=== PATIENT | male | born 1965 | race Caucasian/White ===

== ENCOUNTER 2020-07-18 23:43 | Inpatient (IN) | payer BC, SELFPAY ==
[2020-07-18 23:49] VITALS: BP 120/89; PULSE 140; RESP 26; TEMP 36.5; O2SAT 97; BMI 27.3
--- NOTE | 2020-07-18 23:59 | ECG_ITS ---
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
--- NOTE | 2020-07-18 23:59 | XRR_ITS ---
PROCEDURE INFORMATION: Exam: XR Chest, 1 View Exam date and time: 07/19/2020 12:01 AM Age: 54 years old Clinical indication: Dyspnea; Additional info: SOB TECHNIQUE: Imaging protocol: XR of the chest Views: 1 view. COMPARISON: No relevant prior studies available. FINDINGS: Lungs: Bilateral interstitial lung disease with associated interseptal and interlobular thickening without consolidated alveolar airspace disease. Suspect secondary to pulmonary fibrosis. No visible central pulmonary hyperemia to suggest an increased risk for in interstitial edema. COPD/chronic bronchitis. Evidence of antecedent granulomatous disease. Pleural space: Unremarkable. No pleural effusion. No pneumothorax. Heart/Mediastinum: Cardiac structures and configuration without evidence for cardiomegaly. Diaphragm: Elevation of the left hemidiaphragm. Bones/joints: Unremarkable. XR/XR chest 1V portable [id number] IMPRESSION: 1. Bilateral interstitial lung disease with associated interseptal and interlobular thickening without consolidated alveolar airspace disease. Suspect secondary to pulmonary fibrosis. 2. COPD/chronic bronchitis.
[2020-07-19] VITALS (53 sets, daily range): BP systolic 93–132; BP diastolic 71–95; PULSE 79–132; RESP 14–34; TEMP 35.9–36.6; O2SAT 84–97
--- NOTE | 2020-07-19 00:03 | ED_ITS ---
HPI - SOB/Dyspnea General: Chief Complaint: Shortness of Breath/Dyspnea Stated Complaint: trouble catching breath Time Seen by Provider: 07/18/20 23:53 Source: patient Mode of arrival: ambulatory Limitations: no limitations History of Present Illness: HPI Narrative: 54-year-old male states he has been having palpitations along with shortness of breath throughout the day. He denies any worsening or improving factors. He is in A. fib with RVR heart rate into the 160s and 170s here. He denies any history of A. fib. He denies any cough or fever. Denies any worsening or improving factors. Associated symptoms: Reports palpitations; Deny abdominal pain, fever(s), nausea or vomiting Review of Systems Const: Denies: fever(s), chills, body aches or change in appetite Eyes: Denies: blurry vision or eye discomfort ENMT: Denies: throat pain or dental pain Card: Reports: palpitations Resp: Reports: dyspnea GI: Denies: abdominal pain, nausea, vomiting or diarrhea : Denies: dysuria Musc: Denies: neck pain or back pain Skin/Breast: Denies: rash Neuro: Denies: headache(s) Psych: Denies: depression Oswaldo/Lymph: Denies: easy bruising All/Imm: Denies: urticaria Physical Exam Const: COMMON NORMALS: no acute distress, patient oriented x3 and healthy appearing HENMT: COMMON NORMALS: normocephalic and atraumatic HEAD & SCALP: normocephalic and atraumatic Eye: COMMON NORMALS: Equal, round and reactive pupils present and EOMs intact bilaterally PUPIL: Yes Equal, round and reactive pupils present Neck/C-Spine: COMMON NORMALS: full ROM and supple Chest: COMMONS NORMALS: normal inspection of the chest and normal palpation of entire chest wall Resp: COMMON NORMALS: normal respiratory effort, No retractions, No use of accessory muscles and clear to auscultation bilaterally AUSCULTATION: clear to auscultation bilaterally Cardio: COMMON NORMALS: No murmurs present (Cardio) RATE: tachycardic RHYTHM: abnormal rhythm irregularly irregular GI: COMMON NORMALS: Normal to inspection, nondistended, normoactive bowel sounds present, Soft to palpation, non-tender and no masses PALPATION: Yes Soft to palpation Extremity: COMMON NORMALS: normal to inspection and full ROM Neuro: COMMON NORMALS: patient oriented x3, moves all extremities and no focal motor deficits Psych: COMMON NORMALS: mental status grossly normal, Normal thought process present and cooperative THOUGHT PROCESS: Normal thought process present Skin: COMMON NORMALS: no rashes or lesions noted and no wounds GENERAL SKIN EXAM: no rashes or lesions noted Course Vital Signs: Vital signs: Vital Signs Temperature 97.7 F 07/18/20 23:49 Pulse Rate 110 H 07/19/20 02:46 Respiratory Rate 18 07/19/20 02:46 Blood Pressure 115/89 07/19/20 02:46 Pulse Oximetry 92 07/19/20 02:46 MDM - SOB/Dyspnea MDM Narrative: Medical decision making narrative: Joe presents here with A. fib with RVR that is new onset. Patient also has appearance of pneumonia on his x-ray as well. Patient given Cardizem and started on a Cardizem drip here heart rate has improved. Spoke to hospitalist and will admit to the cardiac stepdown. Lab Data: Labs: Lab Results 07/19/20 07/19/20 07/19/20 Range/Units 00:01 00:01 00:01 WBC 9.1 (4.0-10.0) 10^3/ uL RBC 4.79 (4.1-5.3) 10^6/u L Hgb 15.8 (11.7-16.6) g/dL Hct 47.6 (42.0-52.0) % MCV 99.4 H (80-94) fL MCH 33.0 (28.0-34.0) pg MCHC 33.2 (30.0-36.0) g/dL RDW 13.8 (12.1-15.1) % Plt Count 172 (130-400) 10^3/c mm MPV 10.3 (7.4-10.4) fL Neut % (Auto) 60.7 % Lymph % (Auto) 28.4 % Jenkins % (Auto) 9.1 % Eos % (Auto) 0.8 % Baso % (Auto) 0.7 % Neut # (Auto) 5.55 (1.8-7.7) 10^3/u L Lymph # (Auto) 2.6 (0.8-4.8) 10^3/u L Jenkins # (Auto) 0.8 (0.2-0.9) 10^3/u L Eos # (Auto) 0.1 (0.0-0.8) 10^3/u L Baso # (Auto) 0.1 (0.0-0.1) 10^3/u L Nucleated RBC % (a uto) 0 % Nucleated RBCs # 0.0 /100WBC D-Dimer 1.18 H (0-0.59) ug/mIFE U Sodium 138 (136-145) mmol/L Potassium 4.3 (3.5-5.1) mmol/L Chloride 104 (98-107) mmol/L Carbon Dioxide 23 (22-29) mmol/L Anion Gap 15.3 (5-19) BUN 19 (6-20) mg/dL Creatinine 1.1 (0.7-1.2) mg/dL GFR Calculation 70.0 L (90-130) mL/min Glucose 110 (65-115) mg/dL Calculated Osmolal ity 289 (285-295) mOsm/k g Calcium 9.3 (8.5-10.5) mg/dL Total Bilirubin 1.1 (0.15-1.2) mg/dL AST 26 (0-40) U/L ALT 25 (0-41) U/L Alkaline Phosphata se 84 (40-130) IU/L Troponin T Baselin e (0-15) ng/L Troponin T 120 Min [place] (0-15) ng/L Delta Troponin T (0-10) ABS# NT-Pro-B Natriuret Pep 1387 H (0-125) pg/mL Total Protein 6.5 L (6.6-8.7) g/dL Albumin 4.1 (3.5-5.2) g/dL Globulin 2.4 (1.3-4.6) g/dL SARS-CoV-2 Ag (Rap id) (Negative) 07/19/20 07/19/20 07/19/20 Range/Units 00:01 02:18 02:20 WBC (4.0-10.0) 10^3/ uL RBC (4.1-5.3) 10^6/u L Hgb (11.7-16.6) g/dL Hct (42.0-52.0) % MCV (80-94) fL MCH (28.0-34.0) pg MCHC (30.0-36.0) g/dL RDW (12.1-15.1) % Plt Count (130-400) 10^3/c mm MPV (7.4-10.4) fL Neut % (Auto) % Lymph % (Auto) % Jenkins % (Auto) % Eos % (Auto) % Baso % (Auto) % Neut # (Auto) (1.8-7.7) 10^3/u L Lymph # (Auto) (0.8-4.8) 10^3/u L Jenkins # (Auto) (0.2-0.9) 10^3/u L Eos # (Auto) (0.0-0.8) 10^3/u L Baso # (Auto) (0.0-0.1) 10^3/u L Nucleated RBC % (a uto) % Nucleated RBCs # /100WBC D-Dimer (0-0.59) ug/mIFE U Sodium (136-145) mmol/L Potassium (3.5-5.1) mmol/L Chloride (98-107) mmol/L Carbon Dioxide (22-29) mmol/L Anion Gap (5-19) BUN (6-20) mg/dL Creatinine (0.7-1.2) mg/dL GFR Calculation (90-130) mL/min Glucose (65-115) mg/dL Calculated Osmolal ity (285-295) mOsm/k g Calcium (8.5-10.5) mg/dL Total Bilirubin (0.15-1.2) mg/dL AST (0-40) U/L ALT (0-41) U/L Alkaline Phosphata se (40-130) IU/L Troponin T Baselin e 12 (0-15) ng/L Troponin T 120 Min [place] 11.01 (0-15) ng/L Delta Troponin T -0.99 L (0-10) ABS# NT-Pro-B Natriuret Pep (0-125) pg/mL Total Protein (6.6-8.7) g/dL Albumin (3.5-5.2) g/dL Globulin (1.3-4.6) g/dL SARS-CoV-2 Ag (Rap id) Negative (Negative) Imaging Data^: CXR: Attestation: I personally reviewed and interpreted this imaging study as follows: Radiologist's impression: [facility] [address] [place] [id number] XRay Report Signed Patient: Keith Shi Unit #: [id number] : 1965 Age/Sex: 54 / M ADM Date: 07/18/20 Loc: ER Room/Bed: Attending Dr: Ordering Provider/Ordering MD: Jyotsna Adkins MD Date of Service: 07/18/20 Procedure(s): XR chest 1V portable [id number] Accession Number(s): [id number] Report Number: [id number] PROCEDURE INFORMATION: Exam: XR Chest, 1 View Exam date and time: 07/19/2020 12:01 AM Age: 54 years old Clinical indication: Dyspnea; Additional info: SOB TECHNIQUE: Imaging protocol: XR of the chest Views: 1 view. COMPARISON: No relevant prior studies available. FINDINGS: Lungs: Bilateral interstitial lung disease with associated interseptal and interlobular thickening without consolidated alveolar airspace disease. Suspect secondary to pulmonary fibrosis. No visible central pulmonary hyperemia to suggest an increased risk for in interstitial edema. COPD/chronic bronchitis. Evidence of antecedent granulomatous disease. Pleural space: Unremarkable. No pleural effusion. No pneumothorax. Heart/Mediastinum: Cardiac structures and configuration without evidence for cardiomegaly. Diaphragm: Elevation of the left hemidiaphragm. Bones/joints: Unremarkable. XR/XR chest 1V portable [id number] IMPRESSION: 1. Bilateral interstitial lung disease with associated interseptal and interlobular thickening without consolidated alveolar airspace disease. Suspect secondary to pulmonary fibrosis. 2. COPD/chronic bronchitis. CT Chest: Attestation: I personally reviewed and interpreted this imaging study as follows: Radiologist's impression: [facility] [address] [place] [id number] Scan Report Signed Patient: Keith Shi Unit #: [id number] : 1965 Age/Sex: 54 / M ADM Date: 07/18/20 Loc: ER Room/Bed: Attending Dr: Ordering Provider/Ordering MD: Jyotsna Adkins MD Date of Service: 07/19/20 Procedure(s): CT angio chest PE protcl [id number] Accession Number(s): [id number] Report Number: [id number] PROCEDURE INFORMATION: Exam: CT Angiography Chest With Contrast Exam date and time: 07/19/2020 1:41 AM Age: 54 years old Clinical indication: Dyspnea; Additional info: SOB TECHNIQUE: Imaging protocol: Computed tomographic angiography of the chest with intravenous contrast. 3D rendering (Not supervised by radiologist): MIP and/or 3D reconstructed images were created by the technologist. Radiation optimization: All CT scans at this facility use at least one of these dose optimization techniques: automated exposure control; mA and/or kV adjustment per patient size (includes targeted exams where dose is matched to clinical indication); or iterative reconstruction. Contrast material: OMNI 350; Contrast volume: 95 ml; Contrast route: INTRAVENOUS (IV); COMPARISON: CR XR chest 1V portable [id number] 07/18/2020 11:47 PM RADIATION DOSE METRICS: Total DLP (mGy-cm): 620.33 FINDINGS: Pulmonary arteries: Normal. No pulmonary emboli. Aorta: Unremarkable. No aortic aneurysm. No aortic dissection. Lungs: There is mild prominence of the pulmonary vasculature and some increased linear opacities present , findings that could represent pulmonary edema. Pleural space: There is a right pleural effusion. There are hazy opacities superimposed over the right pleural effusion likely representing atelectasis. Heart: Unremarkable. No cardiomegaly. No pericardial effusion. Lymph nodes: There are multiple mildly prominent mediastinal and hilar lymph nodes seen. Diaphragm: There is elevation of the left hemidiaphragm. There strandy and patchy opacities and consolidation seen superimposed over the left hemidiaphragm likely representing atelectasis. A left basilar pneumonia cannot be entirely excluded however. Bones/joints: Unremarkable. No acute fracture. Soft tissues: Unremarkable. CT/CT angio chest PE protcl [id number] IMPRESSION: 1. There is no evidence for pulmonary emboli. 2. Multiple mildly prominent mediastinal and hilar lymph nodes are present. 3. There is elevation of the left hemidiaphragm. Strandy and patchy opacities and some consolidation superimposes over the elevated left hemidiaphragm likely representing atelectasis although superimposed pneumonia cannot be excluded. 4. There is a small right pleural effusion. Hazy opacities superimposed over the pleural effusion likely representing atelectasis. 5. There is mild prominence of the pulmonary vasculature and some increased linear opacities present, findings that could represent mild pulmonary edema. EKG Data^: EKG 1: Attestation: I personally reviewed and interpreted this EKG as follows: EKG Interpretation Date: 07/19/20 EKG interpretation time: 23:54 Interpretation: afib with rvr hr [address] or t wave abnormalities qrs 89 qtc 358 EKG 2: Attestation: I personally reviewed and interpreted this EKG as follows: EKG Interpretation Date: 07/19/20 EKG interpretation time: 02:18 Interpretation: afib hr [address] or t wave abnormalities qrs 97 qtc 409 Critical Care Time Critical Care Time: Critical Care Time: Yes Total Critical Care Time: 36 Attestation: This case had a high probability of a clinically significant, sudden, or life threatening deterioration of this patient's condition which required my full and direct attention, intervention and personal management. 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
[2020-07-19] MEDS: sodium chloride 0.9% 1,000 ML 999 ML IV ×2 (00:19→04:51)
[2020-07-19 00:38] LABS: Troponin(5th) Baseline 12 ng/L (0-15)
[2020-07-19 00:47] LABS: Alanine Aminotransferase 25 U/L (0-41); Albumin Level 4.1 g/dL (3.5-5.2); Alkaline Phosphatase 84 IU/L (40-130); Aspartate Amino Transferase 26 U/L (0-40); Blood Urea Nitrogen 19 mg/dL (6-20); Calcium 9.3 mg/dL (8.5-10.5); Carbon Dioxide 23 mmol/L (22-29); Chloride 104 mmol/L (98-107); Globulin 2.4 g/dL (1.3-4.6); Glucose 110 mg/dL (65-115); NT Pro B Type Natriuretic Pept 1387 pg/mL (0-125); Osmolality Calculated 289 mOsm/kg (285-295); Sodium 138 mmol/L (136-145); Total Bilirubin 1.1 mg/dL (0.15-1.2); Total Protein 6.5 g/dL (6.6-8.7)
[2020-07-19 01:22] LABS: Anion Gap 15.3 (5-19); Potassium 4.3 mmol/L (3.5-5.1)
[2020-07-19 01:23] LABS: Basophils # 0.1 10^3/uL (0.0-0.1); Basophils % 0.7 %; Eosinophils # 0.1 10^3/uL (0.0-0.8); Eosinophils % 0.8 %; Hematocrit 47.6 % (42.0-52.0); Hemoglobin 15.8 g/dL (11.7-16.6); Lymphocytes # 2.6 10^3/uL (0.8-4.8); Lymphocytes % 28.4 %; Mean Corpuscular HGB Conc 33.2 g/dL (30.0-36.0); Mean Corpuscular Volume 99.4 fL (80-94); Mean Platelet Volume 10.3 fL (7.4-10.4); Monocytes # 0.8 10^3/uL (0.2-0.9); Monocytes % 9.1 %; Neutrophils # 5.55 10^3/uL (1.8-7.7); Neutrophils % 60.7 %; Nucleated Red Blood Cells % 0 %; Platelet Count 172 10^3/cmm (130-400); Red Blood Count 4.79 10^6/uL (4.1-5.3); Red Cell Distribution Width 13.8 % (12.1-15.1); White Blood Count 9.1 10^3/uL (4.0-10.0)
[2020-07-19 01:29] LABS: D Dimer 1.18 ug/mIFEU (0-0.59)
--- NOTE | 2020-07-19 01:31 | CTR_ITS ---
PROCEDURE INFORMATION: Exam: CT Angiography Chest With Contrast Exam date and time: 07/19/2020 1:41 AM Age: 54 years old Clinical indication: Dyspnea; Additional info: SOB TECHNIQUE: Imaging protocol: Computed tomographic angiography of the chest with intravenous contrast. 3D rendering (Not supervised by radiologist): MIP and/or 3D reconstructed images were created by the technologist. Radiation optimization: All CT scans at this facility use at least one of these dose optimization techniques: automated exposure control; mA and/or kV adjustment per patient size (includes targeted exams where dose is matched to clinical indication); or iterative reconstruction. Contrast material: OMNI 350; Contrast volume: 95 ml; Contrast route: INTRAVENOUS (IV); COMPARISON: CR XR chest 1V portable [id number] 07/18/2020 11:47 PM RADIATION DOSE METRICS: Total DLP (mGy-cm): 620.33 FINDINGS: Pulmonary arteries: Normal. No pulmonary emboli. Aorta: Unremarkable. No aortic aneurysm. No aortic dissection. Lungs: There is mild prominence of the pulmonary vasculature and some increased linear opacities present , findings that could represent pulmonary edema. Pleural space: There is a right pleural effusion. There are hazy opacities superimposed over the right pleural effusion likely representing atelectasis. Heart: Unremarkable. No cardiomegaly. No pericardial effusion. Lymph nodes: There are multiple mildly prominent mediastinal and hilar lymph nodes seen. Diaphragm: There is elevation of the left hemidiaphragm. There strandy and patchy opacities and consolidation seen superimposed over the left hemidiaphragm likely representing atelectasis. A left basilar pneumonia cannot be entirely excluded however. Bones/joints: Unremarkable. No acute fracture. Soft tissues: Unremarkable. CT/CT angio chest PE protcl [id number] IMPRESSION: 1. There is no evidence for pulmonary emboli. 2. Multiple mildly prominent mediastinal and hilar lymph nodes are present. 3. There is elevation of the left hemidiaphragm. Strandy and patchy opacities and some consolidation superimposes over the elevated left hemidiaphragm likely representing atelectasis although superimposed pneumonia cannot be excluded. 4. There is a small right pleural effusion. Hazy opacities superimposed over the pleural effusion likely representing atelectasis. 5. There is mild prominence of the pulmonary vasculature and some increased linear opacities present, findings that could represent mild pulmonary edema. Radiation Dose CTDIVOL = (mGy): DLP = 620.33 (mGy-cm)
[2020-07-19] MEDS: iohexol 350 mg/mL 100 mL Btl IV (01:57)
--- NOTE | 2020-07-19 01:59 | ECG_ITS ---
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
[2020-07-19] MEDS: cefTRIAXone 1,000 MG in sodium chloride 0.9% (plus) 50 ML 100 MG IV (02:44)
[2020-07-19 02:48] LABS: Troponin 5 2HR 11.01 ng/L (0-15)
--- NOTE | 2020-07-19 02:51 | PC.NURSE ---
Patient oxygen saturation dropped to 88%. Placed patient on 2L of oxygen via nasal cannula and oxygen saturation came up to 92%.
[2020-07-19 02:53] LABS: Troponin 5 2HR Delta -0.99 ABS# (0-10)
[2020-07-19 02:56] LABS: SARS Covid-2 Antigen Negative (Negative)
[2020-07-19] MEDS: azithromycin 500 MG in sodium chloride 0.9% 250 ML 250 MG IV (03:53)
--- NOTE | 2020-07-19 04:39 | PC.NURSE ---
report called to Sheela GUZMAN on CSU unit at [phone]
--- NOTE | 2020-07-19 05:02 | PC.NURSE ---
Patient received from ED via stretcher. Patient able to ambulate to bed with minimal assistance. Cardizem drip running at 10ml/hr upon arrival to floor. VS as documented. Dr Alvarado in to see patient. Received verbal order to give Lasix 20mg IVP one time now. Also, to increase cardizem drip to 15ml/hr and give a 15ml bolus from drip that is hanging. Bolus given and rate increased to 15ml/hr. Patient c/o palpitations and increased work of breathing. Currently sitting on side of bed for ease of breathing. Dr Alvarado to place further orders.
[2020-07-19] MEDS: FUROsemide 10 mg/mL SDV 2mL 20 MG IVP (05:21)
--- NOTE | 2020-07-19 05:59 | USCV_ITS ---
Keith Shi Age: 54 Gender: M : 1965 Exam Date: 07/19/2020 08:38 Ordering Phys: Emmy Alvarado MD Technologist: Kandis Merino Exam Location: [facility] Indication: New onset atrial fibrillation with RVR, CHF BP: 109 / 88 HR: 112 Rhythm: Sinus Technical Quality: Fair MEASUREMENTS (Male / Female) Normal Values 2D ECHO LV Diastolic Diameter PLAX 5.4 cm 4.2 - 5.9 / 3.9 - 5.3 cm LV Systolic Diameter PLAX 3.5 cm LV Chamber Size 4.9 cm IVS Diastolic Thickness 1.1 cm 0.6 - 1.0 / 0.6 - 0.9 cm IVS Systolic Thickness 1.6 cm LVPW Diastolic Thickness 0.9 cm 0.6 - 1.0 / 0.6 - 0.9 cm LVPW Systolic Thickness 1.2 cm RV Chamber Size 2.9 cm LVOT Diameter 1.9 cm LV Ejection Fraction 2D Teich 65.1 % LV Ejection Fraction MOD 2C 61.7 % LV Ejection Fraction 2C AL 63.4 % LA Diameter 4.2 cm LA Width 3.6 cm LA Height 6.2 cm RA Width 3.3 cm RA Height 5.0 cm Aorta at Sinotubular Diameter 2.6 cm M-MODE LV Diastolic Diameter MM 6.1 cm 4.2 - 5.9 / 3.9 - 5.3 cm LV Systolic Diameter MM 4.3 cm LV Ejection Fraction MM Teich 55.0 % IVS Diastolic Thickness MM 0.8 cm 0.6 - 1.0 / 0.6 - 0.9 cm IVS Systolic Thickness MM 1.5 cm LVPW Diastolic Thickness MM 1.0 cm 0.6 - 1.0 / 0.6 - 0.9 cm LVPW Systolic Thickness MM 1.2 cm RV Diastolic Diameter MM 1.1 cm Aortic Annulus Diameter 3.3 cm LA Ao Ratio MM 1.3 MV E Point Septal Separation 1.3 cm DOPPLER AV Peak Velocity 124.0 cm/s LVOT Peak Velocity 81.0 cm/s AV Area Cont Eq vti 1.4 cm squared AV Area Cont Eq pk 1.9 cm squared MV Area PHT 4.6 cm squared MV E' Velocity 142.0 cm/s TR Peak Velocity 286.4 cm/s TR Peak Gradient 32.8 mmHg TR Mean Velocity 240.0 cm/s TR Mean Gradient 24.0 mmHg TR Velocity Time Integral 80.0 cm TV Peak E Velocity 46.0 cm/s Right Atrial Pressure 15.0 mmHg Pulmonary Artery Systolic Pressu 47.8 mmHg PV Peak Velocity 36.0 cm/s RV Acceleration Time 0.0 s RV Ejection Time 0.2 s RV AcT/ET 0.2 FINDINGS Left Ventricle Normal left ventricular cavity size. Normal left ventricular systolic function. No regional wall motion abnormalities. Left ventricular ejection fraction is estimated at 55 %. In the presence of atrial fibrillation diastolic function cannot be assessed accurately. Right Ventricle The right ventricle is normal in size and function. Moderate pulmonary hypertension, RVSP 67 mmHg. Right Atrium The right atrium is normal in size. Left Atrium The left atrium is normal in size. Mitral Valve Mildly thickened mitral valve. No mitral valve stenosis. Severe mitral valve regurgitation. Aortic Valve Structurally normal aortic valve without significant sclerosis or stenosis. There is no aortic regurgitation. Tricuspid Valve Severe tricuspid valve regurgitation. Pulmonic Valve Moderate pulmonary valve regurgitation. Pericardium Normal pericardium without effusion. Aorta Normal ascending aorta dimension. CONCLUSIONS 1-Normal left ventricular cavity size. Normal left ventricular systolic function. No regional wall motion abnormalities. Left ventricular ejection fraction is estimated at 55 %. In the presence of atrial fibrillation diastolic function cannot be assessed accurately. 2-The right ventricle is normal in size and function. Moderate pulmonary hypertension, RVSP 67 mmHg. 3-Mildly thickened mitral valve. No mitral valve stenosis. Severe mitral valve regurgitation. 4-Structurally normal aortic valve without significant sclerosis or stenosis. There is no aortic regurgitation. 5-Severe tricuspid valve regurgitation. 6-Moderate pulmonary valve regurgitation. 7-There is no pericardial effusion. 8-Right atrial pressure is around 20 mm of mercury. 9-There are no prior echocardiogram studies to compare. Laura Burch MD (Electronically Signed) Final Date: 19 July 2020 19:09 S
--- NOTE | 2020-07-19 06:03 | PM.HP ---
Providers/Chief Complaint Admitting Physician: Emmy Alvarado MD Chief Complaint: trouble catching breath History of Present Illness Keith Shi is a 54 year old male with no known PMH, does not usually follow with doctors, chronic active smoker who presented to the ER today c/o palpitations and shortness of breath. States that this has been ongoing over the past week, does not remember any specific triggers, denies any chest pain. States onset was sudden, however because of worsening dyspnea and palpitations presented to ER today. Here npted to be in A fib with RVR with HR up to 170bpm ,improved to 110/min with 20mg IVP cardizem and now started on cardizem gtt. Also with new 02 requierement of 2-3lpm to maintain saturation , room air sats of 88%ROS + for orthopnea. H/o chronic cough + 15 years, states this is not worsened over baseline. CTA chest in the ER negative for PE, however shows pulmonary edema and atelactasis. CXR without gross infiltrates, shows COPD. Troponin without significant delta. Review of Systems General: Reports: 10 or more systems reviewed and unremarkable except in HPI and below Const: Denies: fever(s), chills or body aches Eyes: Denies: change in vision, blurry vision or photophobia ENMT: Denies: throat pain, enlarged tonsils, odynophagia or nasal congestion Card: Reports: palpitations and irregular heart rhythm; Denies: chest pain, edema, swelling of feet/ankles, lightheadedness, pre-syncope, dyspnea on exertion or orthopnea Resp: Reports: dyspnea, non-productive cough and wheezing; Denies: productive cough, stridor, pain on inspiration, change in phlegm color, hemoptysis or chest congestion GI: Denies: abdominal pain, nausea, vomiting, hematemesis, coffee ground emesis, dysphagia, heartburn, diarrhea, constipation, GI cramping, change in stool character, hematochezia or melena : Denies: flank pain, dysuria, urinary frequency, urinary urgency, urinary hesitancy or hematuria Musc: Denies: neck pain, back pain, extremity pain, joint swelling, joint warmth or deformity Neuro: Denies: headache(s), numbness in extremities, weakness in extremities, sensory changes, difficulty walking, frequent falls, dizziness, vertigo, behavioral changes, Slurred speech present or seizure-like activity Psych: Denies: anxiety, depression, suicidal ideation or homicidal ideation Endo: Denies: polyuria, polydipsia, tired all the time, cold intolerance or hot flashes Oswaldo/Lymph: Denies: easy bruising or easy bleeding Medications/Allergies Home Medications Medication Instructions Recorded Confirmed Last Taken Type cetirizine 10 mg PO DAILY PRN 07/19/20 07/19/20 Unknown History omeprazole magnesium [Prilosec OTC] 20 mg PO DAILY 07/19/20 07/19/20 07/18/20 08:00 History Allergies Allergy/AdvReac Type Severity Reaction Status Date / Time No Known Allergies Allergy Verified 07/18/20 23:49 Vitals/I&O/Wt Last Vital Signs Temp 97.7 F 07/18/20 23:49 Pulse 102 H 07/19/20 06:00 Resp 26 H 07/19/20 06:00 BP 109/88 07/19/20 06:00 Pulse Ox 90 07/19/20 06:00 07/18/20 07/18/20 07/19/20 14:59 22:59 06:59 Intake Total 1300 / 1300 Balance 1300 / 1300 Weight last 48 hrs Weight 83.915 kg Physical Exam Narrative: EXAM NARRATIVE: GEN: Awake, alert and oriented, no acute distress CVS: S1S2 N RS: B/L wheezing to auscultation in infraaxillary areas, diminshed breath sounds anteriorly Abd: Soft, nt/nd , bs+ CERTIFIED EXECUTIVE CHEF: no focal neuro deficits Ext: minimal B/L pitting edema Data : 07/19/20 00:01 07/19/20 00:01 Micro: Microbiology 07/19/20 03:37 Blood Culture - Preliminary Blood SPECIMEN COLLECTED 07/19/20 03:00 Blood Culture - Preliminary Blood SPECIMEN COLLECTED A&P Assessment and plan (1) Atrial fibrillation: new onset A fib with RVR, appears to be ongoing for a week per history Currently on cardizem gtt, start overalpping with po cardizem 30mg q6h Also with signs of CHF, CTA chest with mild pulmonay edema, rales on exam, mild swelling LE, elavted BNP, will use lasix 20mg IVP as patient is lasix naive Monitor I/O closely , daily weight check echocardiogram Ekg without st-T wave changes, troponin 2 hr without significant delta, doubt ACS will screen for DM, lipid panel Currently based on no other reported history, OFPU7rchv score 0-1, however will obtain labs as noted Check TSH started on ASA 81 mg qd Status: Acute Qualifiers: Atrial fibrillation type: unspecified Qualified Code(s): I48.91 - Unspecified atrial fibrillation (2) COPD (chronic obstructive pulmonary disease): Chronic smoker with chronic cough at least 15 years, CXR with findings of COPD COPD exacerbation may be the trigger for A fib suppelemtal 02 to keep saturation >90% duonebs q6h as scheduled nebulization prednisone 40mg po qd PFTs as outpatient Status: Acute (3) Hypoxia: likely as a combination of COPD and CHF from A fib with RVR 02 as above lasix 20g IVP now, montior urine output started duonebs covid ag negative no consolidation on imaging , unlikely pneumonia Status: Acute Attestations Medical Necessity Statement*: >2midnight anticipate for evaluation and management of new onset A fib with RVR, ypoxic resp failure, new CHF and COPD exacerbation Coding Level of Care Code Acute Biology Laboratory Assistant for [facility] Diagnoses Atrial fibrillation I48.91 Atrial fibrillation type: unspecified COPD (chronic obstructive pulmonary disease) J44.9 Hypoxia R09.02
[2020-07-19] MEDS: enoxaparin 40 mg/0.4 mL Syringe SUBCUT (06:10)
[2020-07-19] MEDS: dilTIAZem 30 mg Tablet PO (06:21)
[2020-07-19 06:23] LABS: Estmated Average Glucose 114; Hemoglobin A1C 5.6 % (4.0-6.0)
[2020-07-19 06:33] LABS: Troponin 5 6HR 11.32 ng/L (0-15)
[2020-07-19 06:35] LABS: Troponin 5 6HR Delta -0.68 ng/L (0-12)
[2020-07-19 06:43] LABS: Chol HDL Ratio 3.48 mg/dL (1.0-5.00); Cholesterol 146 mg/dL (0-200); HDL Cholesterol 42 mg/dL (60-100); LDL Cholesterol Calculated 89 mg/dL (50-129); LDL HDL Ratio 2.12 RATIO (0.00-3.22); Thyroid Stimulating Hormone 2.09 uIU/mL (0.27-4.20); Triglycerides 74 mg/dL (0-150)
[2020-07-19] MEDS: aspirin 81 mg EC Tablet PO (08:08)
[2020-07-19] MEDS: dilTIAZem 60 mg Tablet PO ×3 (08:08→20:40)
[2020-07-19] MEDS: predniSONE 20 mg Tablet 40 MG PO (08:09)
[2020-07-19] MEDS: ipratropium-albuterol 3 mL Neb INHALATION ×3 (08:34→20:31)
--- NOTE | 2020-07-19 13:28 | PM.PN ---
Subjective Subjective: Interval history: This morning patient was examined, he sitting up in the side of bed, states that he is feeling better, still in A. fib, heart rates are better controlled in the 90s to 100, on a Cardizem drip, denies any chest pain, has some degree of shortness of breath that persists Vitals/I&O/Wt Last Vital Signs Temp 96.6 F L 07/19/20 10:46 Pulse 95 07/19/20 10:46 Resp 30 H 07/19/20 10:46 BP 119/86 07/19/20 10:46 Pulse Ox 93 07/19/20 10:46 07/18/20 07/19/20 07/19/20 22:59 06:59 14:59 Intake Total 2300 / 2300 478.667 / 478.667 Output Total 900 / 900 1250 / 1250 Balance 1400 / 1400 -771.333 / -771.333 Weight last 48 hrs Weight 85.275 kg Weight 83.915 kg Physical Exam Const: COMMON NORMALS: no acute distress and patient oriented x3 HENMT: COMMON NORMALS: normocephalic HEAD & SCALP: normocephalic Neck/C-Spine: COMMON NORMALS: no JVD Resp: COMMON NORMALS: normal respiratory effort, No retractions, No use of accessory muscles and clear to auscultation bilaterally AUSCULTATION: clear to auscultation bilaterally Cardio: COMMON NORMALS: no JVD, regular rate, regular rhythm, S1 normal heart sound present and S2 normal heart sound present RATE: regular rate RHYTHM: regular rhythm HEART SOUNDS: S1 normal heart sound present and S2 normal heart sound present GI: COMMON NORMALS: Normal to inspection, nondistended, normoactive bowel sounds present, Soft to palpation, non-tender, No hepatosplenomegaly present, no masses and no bruits PALPATION: Yes Soft to palpation and Yes No hepatosplenomegaly present Extremity: COMMON NORMALS: capillary refill normal, no clubbing, cyanosis or edema, no calf tenderness and no pedal edema Neuro: COMMON NORMALS: patient oriented x3 Psych: COMMON NORMALS: mental status grossly normal Data : 07/19/20 00:01 07/19/20 00:01 Micro: Microbiology 07/19/20 03:37 Blood Culture - Preliminary Blood SPECIMEN COLLECTED 07/19/20 03:00 Blood Culture - Preliminary Blood SPECIMEN COLLECTED A&P Assessment and plan (1) Atrial fibrillation: new onset A fib with RVR, appears to be ongoing for a week per history Currently on cardizem gtt, Cardizem 60 every 6 hours, wean off Cardizem Also with signs of CHF, CTA chest with mild pulmonay edema, rales on exam, mild swelling LE, elavted BNP, will use lasix 20mg IVP as patient is lasix naive Monitor I/O closely , daily weight check echocardiogram Ekg without st-T wave changes, troponin 2 hr without significant delta, doubt ACS A1c within normal limits, TSH within normal limits, mag within normal limits Currently based on no other reported history, [id number] score 1 with hypertension, however echo shows evidence of CHF might require anticoagulation started on ASA 81 mg qd Patient might require a cardiac stress test tomorrow morning, follow-up echocardiogram Status: Acute Qualifiers: Atrial fibrillation type: unspecified Qualified Code(s): I48.91 - Unspecified atrial fibrillation (2) COPD (chronic obstructive pulmonary disease): Chronic smoker with chronic cough at least 15 years, CXR with findings of COPD COPD exacerbation may be the trigger for A fib suppelemtal 02 to keep saturation >90% duonebs q6h as scheduled nebulization prednisone 40mg po qd PFTs as outpatient Status: Acute (3) Hypoxia: likely as a combination of COPD and CHF from A fib with RVR 02 as above lasix 20g IVP now, montior urine output started duonebs covid ag negative no consolidation on imaging , unlikely pneumonia Status: Acute (4) Hilar adenopathy: Will require outpatient follow-up with pulmonary Status: Acute (5) Left lower lobe pneumonia: Left lower lobe pneumonia, continue Rocephin azithromycin Status: Acute Attestations Medical Necessity Statement*: Patient requires hospitalization for atrial fibrillation, hypoxia secondary to left lower lobe pneumonia, COPD, pulmonary edema Coding Level of Care Code Acute Oil Treater for [facility] Diagnoses Atrial fibrillation I48.91 Atrial fibrillation type: unspecified COPD (chronic obstructive pulmonary disease) J44.9 Hypoxia R09.02 Hilar adenopathy R59.0 Left lower lobe pneumonia J18.9
[2020-07-20] VITALS (27 sets, daily range): BP systolic 96–117; BP diastolic 70–91; PULSE 74–119; RESP 15–34; TEMP 35.8–36.6; O2SAT 86–94
[2020-07-20] MEDS: azithromycin 500 MG in sodium chloride 0.9% 250 ML 250 MG IV (02:17)
[2020-07-20] MEDS: dilTIAZem 60 mg Tablet PO (02:20)
[2020-07-20] MEDS: cefTRIAXone 1,000 MG in sodium chloride 0.9% (plus) 50 ML 100 MG IV (02:20)
[2020-07-20] MEDS: ipratropium-albuterol 3 mL Neb INHALATION ×3 (02:25→20:04)
--- NOTE | 2020-07-20 03:36 | PC.NURSE ---
SHIFT SUMMARY: PT ALERT AND ORIENTED X4; MOVES ALL EXTREMITIES AND FOLLOWS ALL COMMANDS. CARDIZEM GTT INFUSING ORDERED. ALL VS AND ASSESSMENTS CHARTED. LEFT HAND IV ACCESS INFILTRATED @ 0245 AND NEW ACCESS OBTAINED IN LEFT FOREARM; 20G X1 ATTEMPT. PT CURRENTLY RESTING WITH EYES CLOSED; RESP EVEN AND NON LABORED. NO DISTRESS NOTED AT THIS TIME.
[2020-07-20 05:39] LABS: Basophils # 0.1 10^3/uL (0.0-0.1); Basophils % 0.3 %; Eosinophils % 0.1 %; Hematocrit 44.8 % (42.0-52.0); Hemoglobin 14.8 g/dL (11.7-16.6); Lymphocytes % 13.8 %; Mean Corpuscular Hemoglobin 32.8 pg (28.0-34.0); Mean Corpuscular Volume 99.3 fL (80-94); Mean Platelet Volume 10.9 fL (7.4-10.4); Neutrophils # 11.28 10^3/uL (1.8-7.7); Neutrophils % 78.5 %; Nucleated Red Blood Cells % 0 %; Platelet Count 186 10^3/cmm (130-400); Red Blood Count 4.51 10^6/uL (4.1-5.3); White Blood Count 14.4 10^3/uL (4.0-10.0)
[2020-07-20] MEDS: enoxaparin 40 mg/0.4 mL Syringe SUBCUT (05:39)
[2020-07-20] MEDS: FUROsemide 10 mg/mL SDV 2mL 20 MG IVP (05:39)
[2020-07-20 05:57] LABS: Alanine Aminotransferase 22 U/L (0-41); Albumin Level 3.9 g/dL (3.5-5.2); Alkaline Phosphatase 69 IU/L (40-130); Anion Gap 15.8 (5-19); Aspartate Amino Transferase 19 U/L (0-40); Blood Urea Nitrogen 16 mg/dL (6-20); Calcium 9.3 mg/dL (8.5-10.5); Carbon Dioxide 22 mmol/L (22-29); Chloride 104 mmol/L (98-107); Globulin 2.6 g/dL (1.3-4.6); Glucose 125 mg/dL (65-115); Osmolality Calculated 289 mOsm/kg (285-295); Phosphorus 4.1 mg/dL (2.5-4.5); Potassium 3.8 mmol/L (3.5-5.1); Sodium 138 mmol/L (136-145); Total Bilirubin 1.3 mg/dL (0.15-1.2); Total Protein 6.5 g/dL (6.6-8.7)
--- NOTE | 2020-07-20 06:00 | ECG_ITS ---
[facility] Test Date: 2020-07-20 Pat Name: Keith Shi Department: Room: 107 Gender: Male Watch Assembly Inspector: Kayleneglen Alvaradoer : 1965 Requested By: Ciro Puente Order Number: [id number] Kalin MD: Brown Tolbert M.D. Interpretive Statements NAME OF STUDY: LEXISCAN SESTAMIBI STRESS TEST INDICATION: [Chest Pain, ] Procedure: The baseline blood pressure was 112/86 mmHg with a heart rate of 107 bpm. The electrocardiogram showed atrial fibrillation with nonspecific ST-T wave changes. The Lexiscan was infused for a duration of 20 seconds. A total of 0.4 mg of Lexiscan was infused. The stress phase was continued for a total of 5 minutes. Heart rate at end of stress phase was 114 bpm, with a blood pressure 109/81 mmHg. The EKG at the peak infusion revealed A. fib with no significant ST-T wave changes. Sestamibi was injected 20 seconds after Lexiscan infusion. Blood pressure at the end of recovery phase was 106/78 mmHg with a heart rate of 119 bpm. No significant new EKG changes during recovery phase. Conclusion: 1. Normal EKG response to Lexiscan infusion. 2. No Lexiscan induced chest pain or cardiac arrhythmia. 3. Normal blood pressure and heart rate response. 4. Sestamibi/sestamibi perfusion scan pending; see separate report. Electronically Signed On 07-23-2020 19:14:19 BOOSTER ASSEMBLER by Brown Tolbert M.D. [email or web address]
[2020-07-20] MEDS: regadenoson 0.4 Mg/5 ml Syringe IVP (07:49)
[2020-07-20] MEDS: metoprolol tartrate 25 mg Tablet PO (09:01)
[2020-07-20] MEDS: dilTIAZem 60 mg Tablet 90 MG PO ×3 (09:01→20:53)
[2020-07-20] MEDS: aspirin 81 mg EC Tablet PO (09:01)
[2020-07-20] MEDS: predniSONE 20 mg Tablet 40 MG PO (09:01)
--- NOTE | 2020-07-20 10:54 | PC.NURSE ---
patient reports feeling of intoxication after medication administration assessed patient vital signs noted stable patient is sitting up in chair at this time denies chest pain or discomfort reports he feels like it maybe anxiety Dr chandra notified of current situation instructions to monitor patient
--- NOTE | 2020-07-20 14:01 | PC.NURSE ---
patient and spouse reporting anxiety after hearing results from Dr. corazon chandra notified and orders placed spoke with patient about new orders patient denies the need for anxiety medications at this time states I would like to wait I don't like taking medications anyway explained to patient that medication was avialable if need be discussed new medications during hospital stay as well as adverse reactions and side effects patient verbalized understanding. patient left sitting up in chair with all needs in reach vital signs stable.
--- NOTE | 2020-07-20 14:29 | NMCV_ITS ---
NM marlon perf SPECT r/s* [id number] Jose GuadalupeKeith Age: 54 Gender: M : 1965 Exam Date: 07/20/2020 06:58 Ordering Phys: Ciro Puente MD Technologist: MATHEUS Faye Exam Location: [facility] Indications: TROUBLE CATCHING BREATH STRESS TEST Please see separate stress test report in [facility] for full findings IMAGE PROTOCOL Rest/Stress 1 Lexiscan Day Radiopharmaceutical Dose (mCi) Administration Site Administered by Rest: Tc-99m 11.0 IV MATHEUS Toth Sestamibi Stress:Tc-99m 33.0 IV MATHEUS Toth Sestamibi Rest: 20-Jul-2020 60 Discovery 630 Stress: 20-Jul-2020 30 Discovery 630 0.4mg Lexiscan. Images obtained in supine and prone position. SPECT RESULTS Technical Quality: Excellent Raw Data Analysis: Normal Image Corrections: No attenuation or motion correction applied Summed Stress Score: 0 Summed Rest Score: 2 Summed Difference Score: 0 PERFUSION FINDINGS There is a small in size, moderate intensity reversible defect in anterior wall. This likely represents small area of ischemia. FUNCTIONAL RESULTS (calculated via Gated SPECT) Stress Image LV EF (%): 44 Stress EDV (mL):185 TID: 1.11 Stress ESV (mL):104 FUNCTIONAL FINDINGS: LV systolic function is mildly reduced with EF 44% IMPRESSIONS 1. Myocardial perfusion imaging is abnormal with small area of reversible perfusion defect noted in anterior wall. This likely represents ischemia. 2. LV systolic function is mildly reduced with EF of 44%. Brown Tolbert MD (Electronically Signed) Final Date: 20 July 2020 12:48 S
--- NOTE | 2020-07-20 15:04 | PM.CONSULT ---
Providers/Reason For Consult Consulting Physican/Specialty*: CHUY Aranda MD/cardiology Reason for Consult*: Patient with abnormal myocardial perfusion imaging Attending Physician: Ciro Puente MD History of Present Illness History of Present Illness Keith Shi is a 54 year old male with a history of heavy smoking abuse and possible COPD, presented with complaints of chest pain/shortness of breath/generalized weakness for the last 3 weeks. His symptoms are progressively getting worse. Is admitted to hospital for further evaluation and management. Patient was found to have features of community-acquired pneumonia, atrial fibrillation rapid ventricular rate, COPD exacerbation and some heart failure. He has some improvement of the symptoms since the hospital admission. However he continues to have significant shortness of breath with activities. He is finding it difficult to lie flat. Denies any chest pain at this point. Has the feeling of generalized weakness. He had a myocardial perfusion imaging today. He was found to have a small area of ischemia in the anterior wall region. Cardiology consult is requested for further cardiac evaluation recommendations. This patient has has no history for coronary artery disease, myocardial infarction, congestive heart failure or cardiac arrhythmia. He worked in a [employer]. Was found to have chest x-ray evidence of pulmonary fibrosis,mediastinal lymph node enlargement and possible pneumonia. Is a strong family history of atrial fibrillation. Both the second father and grandfather had atrial fibrillation. His grandmother had a pacemaker. Maternal grandmother was born with a hole in the heart?. No other relevant family history. Currently has no fever or chills. No significant cough. Telemetry shows atrial fibrillation with rapid ventricular rate. His blood pressure is running in the 90s. Review of Systems Narrative: CONSTITUTIONAL: No fever or chills. Feeling of weakness/lethargy. EYES: He had some visual disturbances today after the Lexiscan infusion and also after the metoprolol. Currently it is back to normal. ENT: No hoarseness of voice, auditory disturbances or sore throat. CARDIOVASCULAR: As mentioned above. RESPIRATORY: Has remained shortness of breath with activities. GASTROINTESTINAL: History of hiatal hernia. GENITOURINARY: No dysuria or hematuria. INTEGUMENTARY: No skin rashes or history of skin cancer. NEURO: No transient ischemic attacks or amaurosis. PSYCHIATRIC: No history of psychosis or major depression. HEMATOLOGIC: No bleeding disorders or significant anemia. ENDOCRINE: No history of polyuria or polydipsia. MUSCULOSKELETAL: No recent joint pain or swelling. ALLERGY/IMMUNOLOGY: As mentioned above. Meds/Allergies Home Medications and Allergies Home Medications Medication Instructions Recorded Confirmed Last Taken Type cetirizine 10 mg PO DAILY PRN 07/19/20 07/19/20 Unknown History omeprazole magnesium [Prilosec OTC] 20 mg PO DAILY 07/19/20 07/19/20 07/18/20 08:00 History Allergies Allergy/AdvReac Type Severity Reaction Status Date / Time No Known Allergies Allergy Verified 07/18/20 23:49 Current Medications Current Medications Generic Name Dose Route Start Last Admin Trade Name Freq PRN Reason Stop Dose Admin Albuterol/Ipratropium 3 ml 07/19/20 09:00 07/20/20 14:15 Ipratropium-Albuterol 3 Ml Neb INHALATION 3 ml Q6H.RESPIRATORY NICK Administration Aspirin 81 mg 07/19/20 09:00 07/20/20 09:01 Aspirin 81 Mg Ec Tablet PO 81 mg DAILY NICK Administration Diltiazem HCl 90 mg 07/20/20 08:30 07/20/20 14:26 Diltiazem 60 Mg Tablet PO 90 mg Q6H NICK Administration Enoxaparin Sodium 40 mg 07/19/20 06:00 07/20/20 05:39 Enoxaparin 40 Mg/0.4 Ml Syringe SUBCUT 40 mg Q24H NICK Administration Furosemide 20 mg 07/19/20 06:15 07/20/20 05:39 Furosemide 10 Mg/Ml Sdv 2ml IVP 20 mg Q24H NICK Administration Diltiazem HCl 125 mg/ Sodium 125 mls @ 0 mls/hr 07/18/20 23:45 07/20/20 09:45 Chloride IV 0 mg/hr .Q0M NICK 0 mls/hr Titration Protocol Per Protocol Ceftriaxone Sodium 1,000 mg/ 50 mls @ 100 mls/hr 07/20/20 02:00 07/20/20 03:02 Sodium Chloride IV Infused Q24H NICK Infusion Protocol Azithromycin 500 mg/ Sodium 250 mls @ 250 mls/hr 07/20/20 03:00 07/20/20 03:07 Chloride IV Infused Q24H NICK Infusion Protocol Metoprolol Tartrate 25 mg 07/20/20 09:00 07/20/20 09:01 Metoprolol Tartrate 25 Mg Tablet PO 25 mg BID NICK Administration Prednisone 40 mg 07/19/20 09:00 07/20/20 09:01 Prednisone 20 Mg Tablet PO 40 mg DAILY NICK Administration PFSH Acute PFSH: Medical History Atrial fibrillation with rapid ventricular response Family History (Updated 07/20/20 @ 18:25 by Leann Aranda MD) Father Arrhythmia, atrial Grandfather Arrhythmia, atrial Grandmother Arrhythmia, atrial Other CAD (coronary artery disease) Vitals/I&O/Wt Last Vital Signs Temp 96.6 F L 07/20/20 14:57 Pulse 108 H 07/20/20 14:57 Resp 28 H 07/20/20 14:57 BP 96/77 07/20/20 14:57 Pulse Ox 93 07/20/20 14:57 07/20/20 07/20/20 07/20/20 06:59 14:59 22:59 Intake Total 143.083 / 997.417 414.917 / 414.917 Output Total 450 / 2200 800 / 800 Balance -306.917 / -1202.583 -385.083 / -385.083 Weight last 48 hrs Weight 188 lb Weight 185 lb Physical Exam Narrative: EXAM NARRATIVE: GENERAL: The patient is alert and oriented times three. Not in any acute distress. HEENT: No significant pallor, icterus or lymphadenopathy. The pupils are symmetrical Oral cavity: There are no mucous membrane lesions. Funduscopic examination: The fundus is not visualized NECK: Trachea appears to be central. No masses noted. No JVD or thyromegaly appreciated. No carotid bruit. RESPIRATORY: Chest is symmetrical. No intercostals muscle retraction or any accessory muscle activation. There is no chest wall tenderness. Breath sounds are heard bilaterally. No rales or rhonchi heard. No evidence of any consolidation. BREASTS: Deferred. HEART: The PMI is in the 5th left intercostals space just inside the midclavicular line. No palpable precordial events. The first heart sound is variable second arteries normal. No S3. Short systolic murmur in the mitral area and in the tricuspid area. No diastolic murmurs. No pericardial rub ABDOMEN: No vessel pulsations or distention. No tenderness. No organomegaly appreciated. No abdominal bruit. Bowel sounds are normally heard. : Deferred. RECTAL: Deferred. LYMPHATIC: No lymphadenopathy noted in the neck or groin. EXTREMITIES: No edema or cyanosis peripheral pulses are very weak bilaterally more so of the dorsalis pedis pulses. No evidence of cyanosis MUSCULOSKELETAL: No acute joint deformities or swelling SKIN: There are no significant scars or skin rash noted. NEUROPSYCHIATRIC: The patient is alert and oriented x3. Appears to be in a good mood. The higher functions are grossly within normal limits. No tremors or rigidity noted. Data Labs: Other Labs: Laboratory Last Values WBC 14.4 10^3/uL (4.0 -10.0) H 07/20/20 04:37 RBC 4.51 10^6/uL (4.1 -5.3) 07/20/20 04:37 Hgb 14.8 g/dL (11.7-1 6.6) 07/20/20 04:37 Hct 44.8 % (42.0-52.0 ) 07/20/20 04:37 MCV 99.3 fL (80-94) H 07/20/20 04:37 MCH 32.8 pg (28.0-34. 0) 07/20/20 04:37 MCHC 33.0 g/dL (30.0-3 6.0) 07/20/20 04:37 RDW 14.0 % (12.1-15.1 ) 07/20/20 04:37 Plt Count 186 10^3/cmm (130 -400) 07/20/20 04:37 MPV 10.9 fL (7.4-10.4 ) H 07/20/20 04:37 Neut % (Auto) 78.5 % 07/20/20 04:37 Lymph % (Auto) 13.8 % 07/20/20 04:37 [place] % (Auto) 7.0 % 07/20/20 04:37 Eos % (Auto) 0.1 % 07/20/20 04:37 Baso % (Auto) 0.3 % 07/20/20 04:37 Neut # (Auto) 11.28 10^3/uL (1. 8-7.7) H 07/20/20 04:37 Lymph # (Auto) 2.0 10^3/uL (0.8- 4.8) 07/20/20 04:37 [place] # (Auto) 1.0 10^3/uL (0.2- 0.9) H 07/20/20 04:37 Eos # (Auto) 0.0 10^3/uL (0.0- 0.8) 07/20/20 04:37 Baso # (Auto) 0.1 10^3/uL (0.0- 0.1) 07/20/20 04:37 Nucleated RBC % (a uto) 0 % 07/20/20 04:37 Nucleated RBCs # 0.0 /100WBC 07/20/20 04:37 D-Dimer 1.18 ug/mIFEU (0- 0.59) H 07/19/20 00:01 Sodium 138 mmol/L (136-1 45) 07/20/20 04:37 Potassium 3.8 mmol/L (3.5-5 .1) 07/20/20 04:37 Chloride 104 mmol/L (98-10 7) 07/20/20 04:37 Carbon Dioxide 22 mmol/L (22-29) 07/20/20 04:37 Anion Gap 15.8 (5-19) 07/20/20 04:37 BUN 16 mg/dL (6-20) 07/20/20 04:37 Creatinine 0.7 mg/dL (0.7-1. 2) 07/20/20 04:37 GFR Calculation 118.0 mL/min (90- 130) 07/20/20 04:37 Glucose 125 mg/dL (65-115 ) H 07/20/20 04:37 Estimat Average Gl ucose 114 07/19/20 06:00 Hemoglobin A1c 5.6 % (4.0-6.0) 07/19/20 06:00 Calculated Osmolal ity 289 mOsm/kg (285- 295) 07/20/20 04:37 Calcium 9.3 mg/dL (8.5-10 .5) 07/20/20 04:37 Phosphorus 4.1 mg/dL (2.5-4. 5) 07/20/20 04:37 Magnesium 2.0 mg/dL (1.7-2. 3) 07/20/20 04:37 Total Bilirubin 1.3 mg/dL (0.15-1 .2) H 07/20/20 04:37 AST 19 U/L (0-40) 07/20/20 04:37 ALT 22 U/L (0-41) 07/20/20 04:37 Alkaline Phosphata se 69 IU/L (40-130) 07/20/20 04:37 Troponin T Baselin e 12 ng/L (0-15) 07/19/20 00:01 Troponin T 120 Min [place] 11.01 ng/L (0-15) 07/19/20 02:18 Delta Troponin T -0.99 ABS# (0-10) L 07/19/20 02:18 Troponin T Hi Sens 6Hr 11.32 ng/L (0-15) 07/19/20 06:00 Troponin T Hi Sens 6Hr Delta -0.68 ng/L (0-12) L 07/19/20 06:00 NT-Pro-B Natriuret Pep 1387 pg/mL (0-125 ) H 07/19/20 00:01 Total Protein 6.5 g/dL (6.6-8.7 ) L 07/20/20 04:37 Albumin 3.9 g/dL (3.5-5.2 ) 07/20/20 04:37 Globulin 2.6 g/dL (1.3-4.6 ) 07/20/20 04:37 Triglycerides 74 mg/dL (0-150) 07/19/20 06:00 Cholesterol 146 mg/dL (0-200) 07/19/20 06:00 LDL Cholesterol, C alc 89 mg/dL (50-129) 07/19/20 06:00 HDL Cholesterol 42 mg/dL (60-100) L 07/19/20 06:00 LDL/HDL Ratio 2.12 RATIO (0.00- 3.22) 07/19/20 06:00 Cholesterol/HDL Ra l[place] 3.48 mg/dL (1.0-5 .00) 07/19/20 06:00 TSH 2.09 uIU/mL (0.27 -4.20) 07/19/20 06:00 SARS-CoV-2 Ag (Rap id) Negative (Negati ve) 07/19/20 02:20 The myocardial perfusion imaging revealed 1. Myocardial perfusion imaging is abnormal with small area of reversible perfusion defect noted in anterior wall. This likely represents ischemia. 2. LV systolic function is mildly reduced with EF of 44%. Echocardiogram from 07/19/2020 revealed -Normal left ventricular cavity size. Normal left ventricular systolic function. No regional wall motion abnormalities. Left ventricular ejection fraction is estimated at 55 %. In the presence of atrial fibrillation diastolic function cannot be assessed accurately. 2-The right ventricle is normal in size and function. Moderate pulmonary hypertension, RVSP 67 mmHg. 3-Mildly thickened mitral valve. No mitral valve stenosis. Severe mitral valve regurgitation. 4-Structurally normal aortic valve without significant sclerosis or stenosis. There is no aortic regurgitation. 5-Severe tricuspid valve regurgitation. 6-Moderate pulmonary valve regurgitation. 7-There is no pericardial effusion. 8-Right atrial pressure is around 20 mm of mercury. 9-There are no prior echocardiogram studies to compare. The CTA 1. There is no evidence for pulmonary emboli. 2. Multiple mildly prominent mediastinal and hilar lymph nodes are present. 3. There is elevation of the left hemidiaphragm. Strandy and patchy opacities and some consolidation superimposes over the elevated left hemidiaphragm likely representing atelectasis although superimposed pneumonia cannot be excluded. 4. There is a small right pleural effusion. Hazy opacities superimposed over the pleural effusion likely representing atelectasis. 5. There is mild prominence of the pulmonary vasculature and some increased linear opacities present, findings that could represent mild pulmonary edema. The EKG revealed Atrial fibrillation with a controlled ventricular response rate. No acute ST-T changes. The chest x-ray revealed 1. Bilateral interstitial lung disease with associated interseptal and interlobular thickening without consolidated alveolar airspace disease. Suspect secondary to pulmonary fibrosis. 2. COPD/chronic bronchitis. A&P Assessment and plan (1) Atrial fibrillation with rapid ventricular response: Because of the leg due to low blood pressure, atrial fibrillation rapid ventricular rate, I may go ahead and start him on digoxin 0.25 mg IV now. This will be followed by 0.25 mg p.o. every 6 hours x3 Status: Acute (2) Acute diastolic heart failure: Most likely related to the arrhythmia and possible ischemia. Patient may be given Lasix 40 mg IV on a as needed basis. Status: Acute (3) Left lower lobe pneumonia: P.o. treatment as per the primary. Status: Acute Qualifiers: Pneumonia type: due to unspecified organism Qualified Code(s): J18.9 - Pneumonia, unspecified organism (4) Abnormal nuclear stress test: For further evaluation of the patient's symptom and the abnormal perfusion scan, a cardiac catheterization would be appropriate. This was discussed with the patient in detail. The risk of bleeding, hematoma, vascular injury, myocardial infarction, CVA, renal failure and other concomitant complications were explained in detail. Patient understood this well and consented to proceed. We may go ahead and make arrangements for this, as early as possible. Status: Acute (5) Peripheral arterial disease: I may do a bilateral lower extremity arterial Doppler examination and JONI, to further evaluate. Status: Acute Additional A&P Information Other problems are #1 smoking abuse -strongly advised to quit smoking #2 COPD exacerbation-optimize the bronchodilator treatment as per the primary After reviewing the above and also based on the patient's clinical progress, further recommendations will be made. Thank you for the opportunity to evaluate this patient make these recommendations Consult Attestations Medical Necessity Statement: Patient requires continued hospital stay for close monitoring and further management Coding Level of Care Code Acute Cargo Operations Agent for [facility] Fwd History Comprehensive Exam Comprehensive Medical Decision Making High Complexity Diagnoses Atrial fibrillation with rapid ventricular response I48.91 Acute diastolic heart failure I50.31 Left lower lobe pneumonia J18.9 Pneumonia type: due to unspecified organism Abnormal nuclear stress test R94.39 Peripheral arterial disease I73.9 Time Spent (min) 60
--- NOTE | 2020-07-20 15:50 | P.PN_ITS ---
Subjective Subjective: Interval history: This morning patient was examined, he was seen after stress test, no episodes of chest pain overnight, still is on the Cardizem drip, denies chest pain, denies palpitations, no nausea, no vomiting, is a bit anxious about his stress test results a bit teary Vitals/I&O/Wt Last Vital Signs Temp 96.6 F L 07/20/20 14:57 Pulse 108 H 07/20/20 14:57 Resp 28 H 07/20/20 14:57 BP 96/77 07/20/20 14:57 Pulse Ox 93 07/20/20 14:57 07/20/20 07/20/20 07/20/20 06:59 14:59 22:59 Intake Total 143.083 / 997.417 414.917 / 414.917 Output Total 450 / 2200 800 / 800 Balance -306.917 / -1202.583 -385.083 / -385.083 Weight last 48 hrs Weight 85.275 kg Weight 83.915 kg Physical Exam Const: COMMON NORMALS: no acute distress and patient oriented x3 HENMT: COMMON NORMALS: normocephalic HEAD & SCALP: normocephalic Neck/C-Spine: COMMON NORMALS: no JVD Resp: COMMON NORMALS: normal respiratory effort, No retractions, No use of accessory muscles and clear to auscultation bilaterally AUSCULTATION: clear to auscultation bilaterally Cardio: COMMON NORMALS: no JVD, S1 normal heart sound present and S2 normal heart sound present RATE: tachycardic RHYTHM: abnormal rhythm HEART SOUNDS: S1 normal heart sound present and S2 normal heart sound present GI: COMMON NORMALS: Normal to inspection, nondistended, normoactive bowel sounds present, Soft to palpation, non-tender, No hepatosplenomegaly present, no masses and no bruits PALPATION: Yes Soft to palpation and Yes No hepatosplenomegaly present Extremity: COMMON NORMALS: capillary refill normal, no clubbing, cyanosis or edema, no calf tenderness and no pedal edema Neuro: COMMON NORMALS: patient oriented x3 Psych: COMMON NORMALS: mental status grossly normal Data : 07/20/20 04:37 07/20/20 04:37 Micro: Microbiology 07/19/20 03:37 Blood Culture - Preliminary Blood NEGATIVE TO DATE 07/19/20 03:00 Blood Culture - Preliminary Blood NEGATIVE TO DATE A&P Assessment and plan (1) Atrial fibrillation: new onset A fib with RVR, appears to be ongoing for a week per history Currently on cardizem gtt, increase Cardizem 90 mg every 6 hours, add [place] 25 twice daily Also with signs of CHF, CTA chest with mild pulmonay edema, rales on exam, mild swelling LE, elavted BNP, will use lasix 20mg IVP as patient is lasix naive, transition to p.o. Lasix tomorrow Monitor I/O closely , daily weight check echocardiogram : EF of 55%, no regional wall motion abnormalities, moderate pulmonary hypertension, severe mitral valve regurg, severe tricuspid valve regurg, moderate pulmonary valve regurg Given new onset A. fib, smoking, shortness of breath patient will undergo cardiac stress testing today A1c within normal limits, TSH within normal limits, mag within normal limits Currently based on no other reported history, [id number] score 1 with hypertension, however if echo shows evidence of CHF might require anticoagulation started on ASA 81 mg qd Plan for today follow-up cardiac stress test results, wean off Cardizem, Status: Acute Qualifiers: Atrial fibrillation type: unspecified Qualified Code(s): I48.91 - Unspecified atrial fibrillation (2) COPD (chronic obstructive pulmonary disease): Chronic smoker with chronic cough at least 15 years, CXR with findings of COPD COPD exacerbation may be the trigger for A fib suppelemtal 02 to keep saturation >90% duonebs q6h as scheduled nebulization prednisone 40mg po qd PFTs as outpatient Status: Acute (3) Hypoxia: likely as a combination of COPD and CHF from A fib with RVR 02 as above lasix 20g IVP now, switch to p.o. tomorrow, montior urine output started duonebs covid ag negative Status: Acute (4) Hilar adenopathy: Will require outpatient follow-up with pulmonary Status: Acute (5) Left lower lobe pneumonia: Left lower lobe pneumonia, continue Rocephin azithromycin Status: Acute Attestations Medical Necessity Statement*: Patient requires hospitalization, for atrial fibrillation, shortness of breath Coding Level of Care Code Acute Systems Software Designer for [facility] Diagnoses Atrial fibrillation I48.91 Atrial fibrillation type: unspecified COPD (chronic obstructive pulmonary disease) J44.9 Hypoxia R09.02 Hilar adenopathy R59.0 Left lower lobe pneumonia J18.9
--- NOTE | 2020-07-20 17:08 | PC.RESP ---
Pulmonary Rehab information sent to patient..
[2020-07-20] MEDS: digoxin 250 mcg/ml INJ 2 mL IVP (18:17)
[2020-07-20] MEDS: FUROsemide 10 mg/mL SDV 4mL 40 MG IVP (18:18)
[2020-07-20] MEDS: potassium chloride ER 20 mEq Tablet 40 MEQ PO (18:19)
--- NOTE | 2020-07-20 18:33 | PC.NURSE ---
Dr Aranda at bedside for assessment and discussion of plan of care verbal instructions to give 250 mcg of digoxin ivp x1 now and schedule entry level lab technician for angiogram tomorrow at 1630
[2020-07-20] MEDS: CLONazepam 0.5 mg Tablet PO (20:53)
--- NOTE | 2020-07-20 21:09 | PC.NURSE ---
NURSE NOTE: PT ALERT AND ORIENTED X4, MOVES ALL EXTREMITIES AND FOLLOWS ALL COMMANDS. CONSENT FOR CARDIAC CATH SIGNED AND PUT ON CHART. PT SHAVED OWN GROIN SITE IN SHOWER. DENIES PAIN AT THIS TIME. CURRENTLY RESTING UP IN CHAIR. ALL VS AND ASSESSMENTS CHARTED. NO DISTRESS NOTED AT THIS TIME. Initialized on 07/20/20 21:05 - END OF NOTE
[2020-07-21] VITALS (60 sets, daily range): BP systolic 102–130; BP diastolic 68–100; PULSE 80–125; RESP 15–32; TEMP 36.5–37.2; O2SAT 82–100; BMI 26.7
[2020-07-21] MEDS: cefTRIAXone 1,000 MG in sodium chloride 0.9% (plus) 50 ML 100 MG IV (02:17)
[2020-07-21] MEDS: azithromycin 500 MG in sodium chloride 0.9% 250 ML 250 MG IV (02:17)
[2020-07-21] MEDS: dilTIAZem 60 mg Tablet 90 MG PO (02:18)
[2020-07-21] MEDS: ipratropium-albuterol 3 mL Neb INHALATION ×3 (03:17→20:09)
--- NOTE | 2020-07-21 05:00 | PC.NURSE ---
NURSING NOTE: SHIFT SUMMARY: PT ALERT AND ORIENTED X4. MOVES ALL EXTREMITIES AND FOLLOWS ALL COMMANDS. DENIES PAIN THIS SHIFT. CONSENT FOR PROCEDURE SIGNED AND IN CHART. CURRENTLY RESTING WITH EYES CLOSED, RESP EVEN AND NON LABORED. ALL VS AND ASSESSMENTS CHARTED. NO DISTRESS NOTED AT THIS TIME.
[2020-07-21] MEDS: FUROsemide 10 mg/mL SDV 4mL 40 MG IVP (05:42)
[2020-07-21] MEDS: enoxaparin 40 mg/0.4 mL Syringe SUBCUT (05:42)
--- NOTE | 2020-07-21 06:00 | USCV_ITS ---
Keith Shi Age: 54 Gender: M : 1965 Exam Date: 07/21/2020 08:25 Ordering Phys: Leann Aranda MD ([email or web address]) Technologist: Dawit Aguirre [place] [facility] [place]ication: LEG WEAKNESS, POOR PULSES Risk Factors: Previous Vascular Surgery: RIGHT LEFT BP: 110.0 / 84.00 BP: 110.0/ 85.00 0 0 Waveform Velocity (cm/s) Velocity (cm/s) Waveform Triphasic 48.0 Iliac Prox 93.2 Triphasic Triphasic 50.9 Iliac Mid 87.7 Triphasic Triphasic 59.2 Iliac Distal 65.8 Triphasic Triphasic 54.5 HIGH SCHOOL ASSISTANT PRINCIPAL 74.0 Triphasic Triphasic 63.9 SFA Prox 83.3 Triphasic Triphasic 74.0 SFA Mid 100.5 Triphasic Triphasic 84.9 SFA Dist 125.4 Triphasic Triphasic 27.3 POP 32.7 Triphasic Triphasic 42.7 RAIL TRANSPORTATION TABELER 28.1 Triphasic Triphasic 26.0 DPA 16.1 Biphasic 0.9 JONI 0.9 FINDINGS RT RAIL TRANSPORTATION TABELER = 100, RT DPA = 100 LT RAIL TRANSPORTATION TABELER = 105, LT DPA = 100 Normal arterial Doppler waveforms Minimally diminished resting ABIs bilaterally CONCLUSIONS Minimally diminished resting ABIs with normal arterial Doppler waveforms, bilaterally. The above features may suggest vasospastic disease . Clinical correlation is recommended Dr Leann Aranda MD FAC (Electronically Signed) Final Date: 21 July 2020 12:36 S
[2020-07-21 06:06] LABS: Basophils % 0.1 %; Hemoglobin 14.8 g/dL (11.7-16.6); Lymphocytes # 0.7 10^3/uL (0.8-4.8); Mean Corpuscular HGB Conc 32.9 g/dL (30.0-36.0); Mean Corpuscular Volume 100.2 fL (80-94); Mean Platelet Volume 10.7 fL (7.4-10.4); Monocytes # 0.3 10^3/uL (0.2-0.9); Neutrophils % 92.3 %; Nucleated Red Blood Cells % 0 %; Platelet Count 178 10^3/cmm (130-400); Red Blood Count 4.49 10^6/uL (4.1-5.3); White Blood Count 13.3 10^3/uL (4.0-10.0)
[2020-07-21 06:30] LABS: Phosphorus 4.5 mg/dL (2.5-4.5)
[2020-07-21 06:33] LABS: Alanine Aminotransferase 27 U/L (0-41); Albumin Level 3.9 g/dL (3.5-5.2); Alkaline Phosphatase 76 IU/L (40-130); Anion Gap 19.4 (5-19); Aspartate Amino Transferase 22 U/L (0-40); Blood Urea Nitrogen 20 mg/dL (6-20); Calcium 9.4 mg/dL (8.5-10.5); Carbon Dioxide 23 mmol/L (22-29); Chloride 102 mmol/L (98-107); Globulin 2.7 g/dL (1.3-4.6); Glomerular Filtration Rate 88.3 mL/min (90-130); Glucose 137 mg/dL (65-115); Osmolality Calculated 295 mOsm/kg (285-295); Potassium 4.4 mmol/L (3.5-5.1); Sodium 140 mmol/L (136-145); Total Bilirubin 1.3 mg/dL (0.15-1.2); Total Protein 6.6 g/dL (6.6-8.7)
[2020-07-21] MEDS: sodium chloride 0.9% 1,000 ML 50 ML IV (07:32)
[2020-07-21] MEDS: diphenhydrAMINE 50 mg Capsule PO (07:32)
--- NOTE | 2020-07-21 08:31 | PC.NURSE ---
Dr Aranda on unit for assessment and discussion of plan of care. Discussed with him patient medications to be given per procedure verbal instructions given to give 0.250 mg of Dig IVP now and 0.250 mg PO 8 hours later then another 0.250 mg dig PO 8 hours after that then start 0.125 mg daily of dig PO also stop cardizem ok to give all other scheduled medication per procedure.
[2020-07-21] MEDS: digoxin 250 mcg/ml INJ 2 mL IVP (08:49)
[2020-07-21] MEDS: potassium chloride ER 20 mEq Tablet 40 MEQ PO (08:49)
[2020-07-21] MEDS: atorvastatin 40 mg Tablet PO (08:49)
[2020-07-21] MEDS: metoprolol tartrate 25 mg Tablet PO ×2 (08:49→17:54)
[2020-07-21] MEDS: aspirin 81 mg EC Tablet PO (08:49)
[2020-07-21] MEDS: guaiFENesin 600 mg Tablet PO ×2 (09:21→17:53)
--- NOTE | 2020-07-21 09:32 | P.PN_ITS ---
Subjective Subjective: Interval history: The patient is feeling better. His shortness of breath is significantly improved. He was diuresing appropriately after the IV Lasix last night. Denies any chest pain or palpitations. The heart rate is getting slowly under control. Medications: Reviewed: Yes Medication Review Details: Current Medications Acetaminophen (Acetaminophen 325 Mg Tablet) 650 mg PO Q6H PRN PRN Reason: Mild/Mod Pain Or Temp >/= 101 Albuterol/Ipratropium (Ipratropium-Albuterol 3 Ml Neb) 3 ml INHALATION Q6H.RESPIRATORY [facility] Last Admin: 07/21/20 03:17 Dose: 3 ml Documented by: Aspirin (Aspirin 81 Mg Ec Tablet) 81 mg PO DAILY [facility] Last Admin: 07/21/20 08:49 Dose: 81 mg Documented by: Atorvastatin Calcium (Atorvastatin 40 Mg Tablet) 40 mg PO DAILY [facility] Last Admin: 07/21/20 08:49 Dose: 40 mg Documented by: Clonazepam (Clonazepam 0.5 Mg Tablet) 0.5 mg PO TID PRN PRN Reason: ANXIETY Last Admin: 07/20/20 20:53 Dose: 0.5 mg Documented by: Digoxin (Digoxin 250 Mcg Tablet) 250 mcg PO ONCE ONE Stop: 07/21/20 17:01 Digoxin (Digoxin 250 Mcg Tablet) 250 mcg PO ONCE ONE Stop: 07/22/20 01:01 Digoxin (Digoxin 125 Mcg Tablet) 125 mcg PO DAILY [facility] Enoxaparin Sodium (Enoxaparin 40 Mg/0.4 Ml Syringe) 40 mg SUBCUT Q24H [facility] Last Admin: 07/21/20 05:42 Dose: 40 mg Documented by: Furosemide (Furosemide 40 Mg Tablet) 40 mg PO DAILY@0800 [facility] Guaifenesin (Guaifenesin 600 Mg Tablet) 600 mg PO BID [facility] Last Admin: 07/21/20 09:21 Dose: 600 mg Documented by: Diltiazem HCl 125 mg/ Sodium (Chloride) 125 mls @ 0 mls/hr IV .Q0M [facility]; Protocol Last Titration: 07/20/20 09:45 Dose: 0 mg/hr, 0 mls/hr Documented by: Ceftriaxone Sodium 1,000 mg/ (Sodium Chloride) 50 mls @ 100 mls/hr IV Q24H [facility]; Protocol Last Infusion: 07/21/20 02:47 Dose: Infused Documented by: Azithromycin 500 mg/ Sodium (Chloride) 250 mls @ 250 mls/hr IV Q24H [facility]; Protocol Last Infusion: 07/21/20 03:17 Dose: Infused Documented by: Sodium Chloride (Sodium Chloride 0.9%) 1,000 mls @ 50 mls/hr IV .Q20H ONE Stop: 07/22/20 02:59 Last Admin: 07/21/20 07:32 Dose: 50 mls/hr Documented by: Methylprednisolone Sodium Succinate (Methylprednisolone Sod Succ 40 Mg/Ml Inj) 40 mg IVP Q12H [facility] Last Admin: 07/21/20 05:41 Dose: 40 mg Documented by: Metoprolol Tartrate (Metoprolol Tartrate 25 Mg Tablet) 25 mg PO BID [facility] Last Admin: 07/21/20 08:49 Dose: 25 mg Documented by: Ondansetron HCl (Ondansetron 2 Mg/Ml Sdv 2 Ml) 4 mg IVP Q8H PRN PRN Reason: vomiting, or N/V if npo Ondansetron HCl (Ondansetron 2 Mg/Ml Sdv 2 Ml) 4 mg IVP Q2M PRN PRN Reason: NAUSEA Potassium Chloride (Potassium Chloride Er 20 Meq Tablet) 40 meq PO DAILY [facility] Last Admin: 07/21/20 08:49 Dose: 40 meq Documented by: Vitals/I&O/Wt Last Vital Signs Temp 98.2 F 07/21/20 07:18 Pulse 96 07/21/20 07:18 Resp 23 H 07/21/20 07:18 BP 109/84 07/21/20 07:18 Pulse Ox 93 07/21/20 07:18 07/20/20 07/21/20 07/21/20 22:59 06:59 14:59 Intake Total 480 / 894.917 540 / 1434.917 Output Total 750 / 1550 1300 / 2850 600 / 600 Balance -270 / -655.083 -760 / -1415.083 -600 / -600 Weight last 48 hrs Weight 181 lb 4 oz Weight 188 lb Physical Exam Narrative: EXAM NARRATIVE: GENERAL: The patient is alert and oriented times three. Not in any acute distress. HEENT: No significant pallor, icterus or lymphadenopathy. The pupils are symmetrical Oral cavity: There are no mucous membrane lesions. NECK: Trachea appears to be central. No masses noted. No JVD or thyromegaly appreciated. No carotid bruit. RESPIRATORY: Chest is symmetrical. No intercostals muscle retraction or any accessory muscle activation. There is no chest wall tenderness. Breath sounds are heard bilaterally. No rales or rhonchi heard. No evidence of any consolidation. BREASTS: Deferred. HEART: The PMI is in the 5th left intercostals space just inside the midclavicular line. No palpable precordial events. The first heart sound is variable second arteries normal. No S3. Short systolic murmur in the mitral area and in the tricuspid area. No diastolic murmurs. No pericardial rub ABDOMEN: No vessel pulsations or distention. No tenderness. No organomegaly appreciated. No abdominal bruit. Bowel sounds are normally heard. : Deferred. RECTAL: Deferred. LYMPHATIC: No lymphadenopathy noted in the neck or groin. EXTREMITIES: No edema or cyanosis peripheral pulses are very weak bilaterally more so of the dorsalis pedis pulses. No evidence of cyanosis MUSCULOSKELETAL: No acute joint deformities or swelling SKIN: There are no significant scars or skin rash noted. NEUROPSYCHIATRIC: No focal motor deficits. Data : 07/22/20 03:33 07/22/20 03:33 Micro: Microbiology 07/19/20 03:37 Blood Culture - Preliminary Blood NEGATIVE TO DATE 07/19/20 03:00 Blood Culture - Preliminary Blood NEGATIVE TO DATE A&P Assessment and plan (1) Atrial fibrillation with rapid ventricular response: We may give him a total of 1 mg of digoxin, total of 0.5 mg by mouth and 0.5 mg IV. I may discontinue the Cardizem at this time. Currently on the subcu Lovenox. After the cardiac catheterization, we may decide on long-term oral anticoagulation. Status: Acute (2) Acute diastolic heart failure: Most likely related to the arrhythmia and possible ischemia. May be treated with Lasix on a as needed basis. Status: Acute (3) Left lower lobe pneumonia: The antibiotic treatment as per the primary. Status: Acute Qualifiers: Pneumonia type: due to unspecified organism Qualified Code(s): J18.9 - Pneumonia, unspecified organism (4) Abnormal nuclear stress test: The patient is scheduled for the cardiac catheterization today. Based on the angiogram findings, further recommendations will be made. Status: Acute (5) Peripheral arterial disease: Patient is still awaiting the arterial duplex/JONI. Based on the results, further recommendations will be made Status: Acute Additional A&P Information Other problems are #1 smoking abuse -strongly advised to quit smoking #2 COPD exacerbation-optimize the bronchodilator treatment as per the primary After reviewing the above and also based on the patient's clinical progress, further recommendations will be made. Attestations Medical Necessity Statement*: Patient requires continued hospital stay for close monitoring and further management Coding Level of Care Code Acute Mapping Editor for [facility] Diagnoses Atrial fibrillation with rapid ventricular response I48.91 Acute diastolic heart failure I50.31 Left lower lobe pneumonia J18.9 Pneumonia type: due to unspecified organism Abnormal nuclear stress test R94.39 Peripheral arterial disease I73.9
--- NOTE | 2020-07-21 14:13 | PM.PN ---
Subjective Subjective: Interval history: Patient had a positive stress test yesterday afternoon, Dr. Aranda kindly saw the patient, recommended cardiac catheterization, patient is awaiting cardiac catheterization this morning, no chest pain, no shortness of breath, is a bit anxious about the test Vitals/I&O/Wt Last Vital Signs Temp 97.7 F 07/21/20 12:00 Pulse 94 07/21/20 12:00 Resp 29 H 07/21/20 12:00 BP 102/68 07/21/20 12:00 Pulse Ox 92 07/21/20 12:00 07/20/20 07/21/20 07/21/20 22:59 06:59 14:59 Intake Total 480 / 894.917 540 / 1434.917 Output Total 750 / 1550 1300 / 2850 1400 / 1400 Balance -270 / -655.083 -760 / -1415.083 -1400 / -1400 Weight last 48 hrs Weight 82.214 kg Physical Exam Const: COMMON NORMALS: no acute distress and patient oriented x3 HENMT: COMMON NORMALS: normocephalic HEAD & SCALP: normocephalic Neck/C-Spine: COMMON NORMALS: no JVD Resp: COMMON NORMALS: normal respiratory effort, No retractions, No use of accessory muscles and clear to auscultation bilaterally AUSCULTATION: clear to auscultation bilaterally Cardio: COMMON NORMALS: no JVD, regular rate, regular rhythm, S1 normal heart sound present and S2 normal heart sound present RATE: regular rate RHYTHM: regular rhythm and abnormal rhythm HEART SOUNDS: S1 normal heart sound present and S2 normal heart sound present GI: COMMON NORMALS: Normal to inspection, nondistended, normoactive bowel sounds present, Soft to palpation, non-tender, No hepatosplenomegaly present, no masses and no bruits PALPATION: Yes Soft to palpation and Yes No hepatosplenomegaly present Extremity: COMMON NORMALS: capillary refill normal, no clubbing, cyanosis or edema, no calf tenderness and no pedal edema Neuro: COMMON NORMALS: patient oriented x3 Psych: COMMON NORMALS: mental status grossly normal Data : 07/21/20 04:00 07/21/20 04:00 A&P Assessment and plan (1) Atrial fibrillation: new onset A fib with RVR, appears to be ongoing for a week per history Currently on cardizem gtt, increase Cardizem 90 mg every 6 hours, add [place] 25 twice daily Also with signs of CHF, CTA chest with mild pulmonay edema, rales on exam, mild swelling LE, elavted BNP, will use lasix 40 mg every 24 hours Monitor I/O closely , daily weight check echocardiogram : EF of 55%, no regional wall motion abnormalities, moderate pulmonary hypertension, severe mitral valve regurg, severe tricuspid valve regurg, moderate pulmonary valve regurg Positive cardiac stress test A1c within normal limits, TSH within normal limits, mag within normal limits Currently based on no other reported history, [id number] score 1 with hypertension, however if echo shows evidence of CHF might require anticoagulation Currently on ASA 81 mg qd Plan for today follow-up coronary angiogram, long-term anticoagulation, possible discharge later on this evening Status: Acute Qualifiers: Atrial fibrillation type: unspecified Qualified Code(s): I48.91 - Unspecified atrial fibrillation (2) COPD (chronic obstructive pulmonary disease): Chronic smoker with chronic cough at least 15 years, CXR with findings of COPD COPD exacerbation may be the trigger for A fib suppelemtal 02 to keep saturation >90% duonebs q6h as scheduled nebulization prednisone 40mg po qd PFTs as outpatient Status: Acute (3) Hypoxia: likely as a combination of COPD and CHF from A fib with RVR 02 as above lasix 20g IVP now, switch to p.o. tomorrow, montior urine output started duonebs covid ag negative Status: Acute (4) Hilar adenopathy: Will require outpatient follow-up with pulmonary Status: Acute (5) Left lower lobe pneumonia: Left lower lobe pneumonia, continue Rocephin azithromycin Status: Acute Qualifiers: Pneumonia type: due to unspecified organism Qualified Code(s): J18.9 - Pneumonia, unspecified organism (6) Positive cardiac stress test: -1. Myocardial perfusion imaging is abnormal with small area of reversible perfusion defect noted in anterior wall. This likely represents ischemia. 2. LV systolic function is mildly reduced with EF of 44%. -Proceeding to coronary angiogram this morning Status: Acute Attestations Medical Necessity Statement*: Requires hospitalization for atrial fibrillation, positive cardiac stress test Coding Level of Care Code Acute Organ Assembler for [facility] Diagnoses Atrial fibrillation I48.91 Atrial fibrillation type: unspecified COPD (chronic obstructive pulmonary disease) J44.9 Hypoxia R09.02 Hilar adenopathy R59.0 Left lower lobe pneumonia J18.9 Pneumonia type: due to unspecified organism Positive cardiac stress test R94.39
--- NOTE | 2020-07-21 16:32 | W.PM.OPSUD ---
Surgery/Procedure H&P Update DATE OF PROCEDURE: July 21, 2020 DATE H&P PERFORMED: 07/20/20 H&P UPDATE INFORMATION: I have reviewed H&P completed within last 30 days, I have examined patient prior to procedure and No changes to prior documentation PREOP DIAGNOSIS: Abnormal stress test PLANNED PROCEDURE: Operation Date: 07/21/20 17:00 Proposed Procedures p Cardiac Catheterization(Left) - Leann Aranda MD PATIENT REASSESSED PRIOR TO SEDATION, WITH NO CHANGE NOTED: Yes PHYSICAL EXAM: alert AIRWAY EVAL/ANESTHESIA PLAN: normal airway, see other exam findings, ASA II, Monitored Anesthesia, Local Anesthesia, Risks, benefits & alternatives of sedation and/or procedure discussed and Patient agrees to continue as planned
--- NOTE | 2020-07-21 17:00 | PC.NURSE ---
patient received from cardiac catheterization technologist Tr band to right wrist patient alert oriented with at bed side
--- NOTE | 2020-07-21 18:02 | XACV_ITS ---
Exam Room: [facility] Ht: 175 cm Wt: 85 kg BSA: 2.05 m2 Gender: Male : 1965 Any Known Allergies: No known allergies Exam Priority: Routine Procedure(s): Procedure Description: Diagnostic procedure Procedure Description: Left Heart Catheterization Procedure Description: Coronary Angiography Diagnostic Cath Status: Urgent Diagnostic Findings * Coronary angiography shows right dominance. * The left main is a medium caliber vessel with no significant stenotic lesions. * The left artery descending artery is a medium caliber vessel which appears to wrap around the LV apex minimally. Near to the ostium of the LAD, there was a 30% eccentric narrowing. Moderate coronary calcification was noted in this segment of the artery. No other significant stenotic lesions were seen.. * Left circumflex artery is a medium caliber vessel which was found to have 30 to 40% diffuse irregular narrowing in the mid segment. No other significant stenotic lesions. * The right coronary artery is a medium caliber dominant vessel which was found to have minimal intimal irregularities in the proximal and distal segment. No significant stenotic lesions. Conclusions 1. This is a 54-year-old white male, is admitted to hospital with a new onset of atrial fibrillation, diastolic heart failure and chest pain. He had a myocardial perfusion imaging which revealed a small area of reversible defect in the anterior wall region, suggestive of ischemia in the distribution of the left anterior descending artery. In view of the patient's presenting symptoms and the abnormal objective findings, in order to further evaluate his coronary status, a cardiac catheterization was recommended. Patient underwent left heart catheterization with a left and right coronary angiogram today. The findings are as follows. 2. Mild diffuse coronary artery disease. Moderate calcification near the ostium of the left anterior descending artery. Elevated LVEDP of 24 mmHg. Recommendations * Continue current medical management and risk factor modification. Diagnostic RX Recommendation: medical therapy and/or counseling LV EDP: 24 mmHg Left Ventriculography Findings: * LV gram was not performed because of the arrhythmia. Pressures Phase:Rest AO : 110 / 26 ( 61 ) @ 10:48:00 AM 112 / 73 ( 92 ) @ 10:48:00 AM LV : 111 / 8 / @ 10:48:00 AM Clinical Evaluation EBL: 5mL-10mL Procedural Details Procedure Consent Obtained. Pre-Procedure Time Out. Identified patient by full name and date of as verbalized by the patient/guarantor. Does the consent match the physician's order: Yes. Accurate & Complete Informed Consent: Yes. Inpatient/Outpatient History & Physical on Chart: Yes. If H&P is completed, is and addenduem needed: No; If yes, is the addendum complete: N/A. Visualize and Verify Site with Patient/Guarantor: N/A. Relevant Radiology Images available: N/A. Pre-op teaching completed and patient verbalized understanding. The risks, benefits, and alternatives of sedation and/or procedure were discussed by physician. The patient agrees to continue. Procedure started. [facility] Clinical Fraility Score: 4: Vulnerable. Repair Order Clerk Indications: Suspected CAD. Chest Pain Symptom Assessment: Atypical Angina. Cardiovascular Instability: No. Correct patient, site and procedure confirmed by cath team. PERRLA. Strong, equal hand clinical sociologist bilaterally. Lungs clear x 5 lobes. IV Site on Arrival: 20 gauge in the left forearm. IV Fluids: 0.9% NaCl at KVO. 0 mL infused prior to [employer]. Pre Procedural Pulses: bilateral dorsalis pedis was 3+. Pre Procedural Pulses: bilateral radial was 2+. Oxygen started at 2liters/min via nasal canula. bilateral groins was prepped with chloroprep then draped in the usual sterile fashion. right radial was prepped with chloroprep then draped in the usual sterile fashion. Baseline sample Acquired. HR: 100 BPM. Physician notified. Equipment: 6F - Radial. Cardiac Cath Pack. ACIST Manifold Kit Model BT 2000. Heparinized Saline (2 units/mL), 1000 mL bag. Physician arrived. Physician scrubbed in. Immediate Pre-Procedure Time Out. Correct Patient: Yes; Correct Procedure: Yes; Correct Site: Yes; Correct Patient Position: Yes; Correct Supplies: Yes; Dried Flammable Prep: Yes; Blood Products Available: N/A;. Lidocaine 1% infiltrated to the right radial. Arterial access obtained. A 5 maldivian Benjamín catheter in over wire. EDP Sample taken: LV 111/8,24; HR: 109 BPM; SpO2: 91%. Pullback taken: LV Off; AO Off; Mean: , Peak to Peak: , SEP: ; HR: 105 BPM; SpO2: 91%. Multiple views taken of left coronary artery. Catheter redirected to the RCA. Catheter removed over the exchange wire. Physician scrubbed out. A TR Band was successful obtaining hemostatsis at the Right Radial artery insertion site. TR band placed. Hemostasis obtained. Post Procedure: Pulses reassessed and unchanged. PERRLA. Strong, equal hand clinical sociologist bilaterally. No VTE prophylaxis required. Medication's Wasted: Lidocaine 1% = 18 mL. Medication's Wasted: Nitro = 50 mg. Medication's Wasted: Heparin = 2000 units. Medication's Wasted: Other = fentanyl 50 mcg. Total IV fluids: 250 mL. Contrast type used: Omnipaque 300 mgI/mL, 500 mL bottle. Complications: none. Estimated blood loss: 5mL-10mL. Post-op diagnosis: lv dyastolic dysfunction, mild CAD. Procedure completed. Patient transferred by bed to 1st floor. Vital chart was stopped. Access Site Site: Right Radial artery Sheath Size: 6 Fr Hemostasis Method: TR Band Hemostasis Success: Successful Procedure Medications Start: 4:31 PM Stop: 4:31 PM Medication: Benadryl Amount: 25 mg Route: I.V. Start: 4:31 PM Stop: 4:31 PM Medication: Versed Amount: 1 mg Route: I.V. Start: 4:31 PM Stop: 4:31 PM Medication: Fentanyl Amount: 25 mcg Route: I.V. Start: 4:43 PM Stop: 4:43 PM Medication: Fentanyl Amount: 25 mcg Route: I.V. Start: 4:45 PM Stop: 4:45 PM Medication: Verapamil Amount: 5 mg Route: I.A. Start: 4:45 PM Stop: 4:45 PM Medication: 0.9% Saline Amount: 250 ml Route: I.V. bolus Start: 4:47 PM Stop: 4:47 PM Medication: Heparin Amount: 4000 units Route: I.V. I, the attending physician, have reviewed and verified all procedure medications. Yes, all medications given per verbal order History/Risk Factors Hypertension: Yes Dyslipidemia: No Peripheral Arterial Disease (PAD): No Myocardial Infarction (NC): No Obesity: No Renal Disease: No Tobacco Use: Former Prior Interventions PCI: No CABG: No Valve Surgery: No Report Signatures Finalized by Dr Leann Aranda MD [facility] on 07/21/2020 06:12 PM
--- NOTE | 2020-07-21 22:56 | PC.NURSE ---
NURSING NOTE: TR BAND REMOVAL PT ALERT AND ORIENTED X4; MOVES ALL EXTREMITIES AND FOLLOWS COMMANDS. RT RADIAL CATH SITE/TR BAND REMOVAL PROCESS STARTED AT 1914 AND WAS CONCLUDED AT 1999. NO BLEEDING OR COMPLICATIONS NOTED. SITE CLEANSED WITH BETADINE AND COVERED WITH 2X2 GUAZE AND OCCLUSIVE DRESSING. DRESSING CLEAN, DRY AND INTACT AT THIS TIME. PT DENIES PAIN OR DISCOMFORT AT SITE AND IS CURRENTLY RESTING WITH EYES CLOSED WITH NO DISTRESS NOTED. ALL VS AND ASSESSMENTS CHARTED. WILL CONTINUE TO MONITOR.
[2020-07-22] VITALS (28 sets, daily range): BP systolic 77–130; BP diastolic 56–87; PULSE 92–130; RESP 16–36; TEMP 36.3–36.8; O2SAT 90–98
[2020-07-22] MEDS: ipratropium-albuterol 3 mL Neb INHALATION ×4 (02:05→22:14)
[2020-07-22] MEDS: digoxin 250 mcg Tablet PO (02:28)
[2020-07-22] MEDS: cefTRIAXone 1,000 MG in sodium chloride 0.9% (plus) 50 ML 100 MG IV (02:29)
[2020-07-22] MEDS: azithromycin 500 MG in sodium chloride 0.9% 250 ML 250 MG IV (02:29)
[2020-07-22 04:32] LABS: Basophils % 0.1 %; Hemoglobin 15.6 g/dL (11.7-16.6); Lymphocytes # 0.7 10^3/uL (0.8-4.8); Lymphocytes % 3.9 %; Mean Corpuscular HGB Conc 32.5 g/dL (30.0-36.0); Mean Corpuscular Hemoglobin 32.7 pg (28.0-34.0); Mean Corpuscular Volume 100.6 fL (80-94); Mean Platelet Volume 10.4 fL (7.4-10.4); Monocytes # 0.6 10^3/uL (0.2-0.9); Monocytes % 3.4 %; Neutrophils # 17.18 10^3/uL (1.8-7.7); Neutrophils % 92.1 %; Nucleated Red Blood Cells % 0 %; Platelet Count 192 10^3/cmm (130-400); Red Blood Count 4.77 10^6/uL (4.1-5.3); Red Cell Distribution Width 14.1 % (12.1-15.1); White Blood Count 18.7 10^3/uL (4.0-10.0)
--- NOTE | 2020-07-22 04:37 | PC.NURSE ---
NURSING NOTE: SHIFT SUMMARY: PT ALERT AND ORIENTED X4, MOVES ALL EXTREMITIES AND FOLLOWS COMMANDS. PT RESTING IN CHAIR/WATCHING TELEVISION AT THIS TIME. DENIES PAIN. RIGHT RADIAL CATH SITE DRESSING CLEAN, DRY, AND INTACT; NO DRAINAGE NOTED. ALL VS AND ASSESSMENTS CHARTED. NO DISTRESS NOTED AT THIS TIME.
[2020-07-22 04:59] LABS: Alanine Aminotransferase 35 U/L (0-41); Albumin Level 3.7 g/dL (3.5-5.2); Alkaline Phosphatase 69 IU/L (40-130); Anion Gap 17.2 (5-19); Aspartate Amino Transferase 26 U/L (0-40); Blood Urea Nitrogen 20 mg/dL (6-20); Calcium 9.4 mg/dL (8.5-10.5); Carbon Dioxide 20 mmol/L (22-29); Chloride 104 mmol/L (98-107); Globulin 2.7 g/dL (1.3-4.6); Glucose 126 mg/dL (65-115); Osmolality Calculated 288 mOsm/kg (285-295); Potassium 4.2 mmol/L (3.5-5.1); Sodium 137 mmol/L (136-145); Total Bilirubin 1.1 mg/dL (0.15-1.2); Total Protein 6.4 g/dL (6.6-8.7)
[2020-07-22 05:01] LABS: Magnesium 2.2 mg/dL (1.7-2.3)
[2020-07-22] MEDS: FUROsemide 40 mg Tablet PO (07:37)
--- NOTE | 2020-07-22 08:14 | XR_ITS ---
WS: [id number] Portable AP upright chest, 07/22/2020 Clinical Data: pna Comparison: Portable chest, 07/18/2020. Findings: There is a small right pleural effusion. No nodules or masses are seen. The pulmonary vascu larity is not increased. No pneumonia or pneumothorax is seen. Heart size is not changed. There is el evation of the left diaphragm. Monitor leads are on the chest wall. XR/XR chest 1V portable [id number] Impression: 1. Small right pleural effusion. 2. No change in elevation of the left diaphragm.
[2020-07-22] MEDS: digoxin 125 mcg Tablet PO (08:15)
[2020-07-22] MEDS: metoprolol tartrate 25 mg Tablet PO (08:15)
[2020-07-22] MEDS: guaiFENesin 600 mg Tablet PO ×2 (08:15→19:11)
[2020-07-22] MEDS: potassium chloride ER 20 mEq Tablet 40 MEQ PO (08:15)
[2020-07-22] MEDS: atorvastatin 40 mg Tablet PO (08:15)
[2020-07-22] MEDS: aspirin 81 mg EC Tablet PO (08:16)
--- NOTE | 2020-07-22 08:35 | PM.PN ---
Subjective Subjective: Interval history: Patient is feeling okay. He still is in atrial fibrillation with intermittent rapid ventricular rate. Blood pressure seems to be running in the low normal side. Denies any chest pain or shortness of breath. He had the cardiac catheterization yesterday. He was found to have mild coronary artery disease. His LVEDP was elevated. Based on the angiogram findings, it was opted to treat him medically. Medications: Reviewed: Yes Medication Review Details: Current Medications Acetaminophen (Acetaminophen 325 Mg Tablet) 650 mg PO Q6H PRN PRN Reason: Mild/Mod Pain Or Temp >/= 101 Al Hydrox/Mg Hydrox/Simethicone (Alwc-Hcl-Dprbclpqy-James 30 Ml Udc) 30 ml PO Q15M PRN PRN Reason: INDIGESTION Albuterol/Ipratropium (Ipratropium-Albuterol 3 Ml Neb) 3 ml INHALATION Q6H.RESPIRATORY [facility] Last Admin: 07/22/20 02:05 Dose: 3 ml Documented by: Aspirin (Aspirin 81 Mg Ec Tablet) 81 mg PO DAILY [facility] Last Admin: 07/22/20 08:16 Dose: 81 mg Documented by: Atorvastatin Calcium (Atorvastatin 40 Mg Tablet) 40 mg PO DAILY [facility] Last Admin: 07/22/20 08:15 Dose: 40 mg Documented by: Clonazepam (Clonazepam 0.5 Mg Tablet) 0.5 mg PO TID PRN PRN Reason: ANXIETY Last Admin: 07/20/20 20:53 Dose: 0.5 mg Documented by: Digoxin (Digoxin 125 Mcg Tablet) 125 mcg PO DAILY [facility] Last Admin: 07/22/20 08:15 Dose: 125 mcg Documented by: Enoxaparin Sodium (Enoxaparin 80 Mg/0.8 Ml Syringe) 80 mg SUBCUT Q12H [facility] Fentanyl (Fentanyl 50 Mcg/Ml Inj 2ml) 50 mcg IVP PRN PRN PRN Reason: Prior to sheath removal Furosemide (Furosemide 40 Mg Tablet) 40 mg PO DAILY@0800 [facility] Last Admin: 07/22/20 07:37 Dose: 40 mg Documented by: Guaifenesin (Guaifenesin 600 Mg Tablet) 600 mg PO BID [facility] Last Admin: 07/22/20 08:15 Dose: 600 mg Documented by: Diltiazem HCl 125 mg/ Sodium (Chloride) 125 mls @ 0 mls/hr IV .Q0M NICK; Protocol Last Titration: 07/20/20 09:45 Dose: 0 mg/hr, 0 mls/hr Documented by: Ceftriaxone Sodium 1,000 mg/ (Sodium Chloride) 50 mls @ 100 mls/hr IV Q24H [facility]; Protocol Last Infusion: 07/22/20 02:59 Dose: Infused Documented by: Azithromycin 500 mg/ Sodium (Chloride) 250 mls @ 250 mls/hr IV Q24H [facility]; Protocol Last Infusion: 07/22/20 02:59 Dose: Infused Documented by: Magnesium Hydroxide (Magnesium Hydroxide 30 Ml Udc) 30 ml PO DAILY PRN PRN Reason: CONSTIPATION Methylprednisolone Sodium Succinate (Methylprednisolone Sod Succ 40 Mg/Ml Inj) 40 mg IVP Q12H [facility] Last Admin: 07/22/20 05:37 Dose: 40 mg Documented by: Metoprolol Tartrate (Metoprolol Tartrate 25 Mg Tablet) 25 mg PO BID [facility] Last Admin: 07/22/20 08:15 Dose: 25 mg Documented by: Naloxone HCl (Naloxone 0.4 Mg/Ml Sdv) 0.1 mg IVP Q2M PRN PRN Reason: RESPIRATORY RATE < 8/MIN Nitroglycerin (Nitroglycerin 0.4 Mg Sublingual Tablet) 0.4 mg SUBLINGUAL Q5M PRN PRN Reason: CHEST PAIN Ondansetron HCl (Ondansetron 2 Mg/Ml Sdv 2 Ml) 4 mg IVP Q8H PRN PRN Reason: vomiting, or N/V if npo Ondansetron HCl (Ondansetron 2 Mg/Ml Sdv 2 Ml) 4 mg IVP Q2M PRN PRN Reason: NAUSEA Potassium Chloride (Potassium Chloride Er 20 Meq Tablet) 40 meq PO DAILY [facility] Last Admin: 07/22/20 08:15 Dose: 40 meq Documented by: Vitals/I&O/Wt Last Vital Signs Temp 97.4 F L 07/22/20 06:56 Pulse 122 H 07/22/20 08:15 Resp 26 H 07/22/20 06:56 BP 130/86 07/22/20 06:56 Pulse Ox 96 07/22/20 06:56 07/21/20 07/22/20 07/22/20 22:59 06:59 14:59 Intake Total 360 / 360 1500 / 1860 360 / 360 Output Total 650 / 2050 1500 / 3550 Balance -290 / -1690 0 / -1690 360 / 360 Weight last 48 hrs Weight 180 lb 8 oz Weight 181 lb 4 oz Physical Exam Narrative: EXAM NARRATIVE: GENERAL: The patient is alert and oriented times three. Not in any acute distress. HEENT: No significant pallor, icterus or lymphadenopathy. Pupils are symmetrical NECK: Trachea appears to be central. No masses noted. No JVD or thyromegaly appreciated. No carotid bruit. RESPIRATORY: Chest is symmetrical. No intercostals muscle retraction or any accessory muscle activation. There is no chest wall tenderness. Breath sounds are heard bilaterally. No rales or rhonchi heard. No evidence of any consolidation. BREASTS: Deferred. HEART: The PMI is in the 5th left intercostals space just inside the midclavicular line. No palpable precordial events. The first heart sound is variable second arteries normal. No S3. Short systolic murmur in the mitral area and in the tricuspid area. No diastolic murmurs. No pericardial rub ABDOMEN: No vessel pulsations or distention. No tenderness. No organomegaly appreciated. No abdominal bruit. Bowel sounds are normally heard. : Deferred. RECTAL: Deferred. LYMPHATIC: No lymphadenopathy noted in the neck or groin. EXTREMITIES: No edema or cyanosis peripheral pulses are very weak bilaterally more so of the dorsalis pedis pulses. No evidence of cyanosis. The radial arterial puncture site has no hematoma or bleeding MUSCULOSKELETAL: No acute joint deformities or swelling SKIN: There are no significant scars or skin rash noted. NEUROPSYCHIATRIC: No focal motor deficits. Const: COMMON NORMALS: alert Neuro: SENSORIUM/ORIENTATION: Yes alert Data : 07/22/20 03:33 07/22/20 03:33 Other Labs: Laboratory Last Values WBC 18.7 10^3/uL (4.0-10.0) H 07/22/20 03:33 RBC 4.77 10^6/uL (4.1-5.3) 07/22/20 03:33 Hgb 15.6 g/dL (11.7-16.6) 07/22/20 03:33 Hct 48.0 % (42.0-52.0) 07/22/20 03:33 MCV 100.6 fL (80-94) H 07/22/20 03:33 MCH 32.7 pg (28.0-34.0) 07/22/20 03:33 MCHC 32.5 g/dL (30.0-36.0) 07/22/20 03:33 RDW 14.1 % (12.1-15.1) 07/22/20 03:33 Plt Count 192 10^3/cmm (130-400) 07/22/20 03:33 MPV 10.4 fL (7.4-10.4) 07/22/20 03:33 Neut % (Auto) 92.1 % 07/22/20 03:33 Lymph % (Auto) 3.9 % 07/22/20 03:33 [place] % (Auto) 3.4 % 07/22/20 03:33 Eos % (Auto) 0.0 % 07/22/20 03:33 Baso % (Auto) 0.1 % 07/22/20 03:33 Neut # (Auto) 17.18 10^3/uL (1.8-7.7) H 07/22/20 03:33 Lymph # (Auto) 0.7 10^3/uL (0.8-4.8) L 07/22/20 03:33 [place] # (Auto) 0.6 10^3/uL (0.2-0.9) 07/22/20 03:33 Eos # (Auto) 0.0 10^3/uL (0.0-0.8) 07/22/20 03:33 Baso # (Auto) 0.0 10^3/uL (0.0-0.1) 07/22/20 03:33 Nucleated RBC % (auto) 0 % 07/22/20 03:33 Nucleated RBCs # 0.0 /100WBC 07/22/20 03:33 D-Dimer 1.18 ug/mIFEU (0-0.59) H 07/19/20 00:01 Sodium 137 mmol/L (136-145) 07/22/20 03:33 Potassium 4.2 mmol/L (3.5-5.1) 07/22/20 03:33 Chloride 104 mmol/L (98-107) 07/22/20 03:33 Carbon Dioxide 20 mmol/L (22-29) L 07/22/20 03:33 Anion Gap 17.2 (5-19) 07/22/20 03:33 BUN 20 mg/dL (6-20) 07/22/20 03:33 Creatinine 0.7 mg/dL (0.7-1.2) 07/22/20 03:33 GFR Calculation 118.0 mL/min (90-130) 07/22/20 03:33 Glucose 126 mg/dL (65-115) H 07/22/20 03:33 Estimat Average Glucose 114 07/19/20 06:00 Hemoglobin A1c 5.6 % (4.0-6.0) 07/19/20 06:00 Calculated Osmolality 288 mOsm/kg (285-295) 07/22/20 03:33 Calcium 9.4 mg/dL (8.5-10.5) 07/22/20 03:33 Phosphorus 4.0 mg/dL (2.5-4.5) 07/22/20 03:33 Magnesium 2.2 mg/dL (1.7-2.3) 07/22/20 03:33 Total Bilirubin 1.1 mg/dL (0.15-1.2) 07/22/20 03:33 AST 26 U/L (0-40) 07/22/20 03:33 ALT 35 U/L (0-41) 07/22/20 03:33 Alkaline Phosphatase 69 IU/L (40-130) 07/22/20 03:33 Troponin T Baseline 12 ng/L (0-15) 07/19/20 00:01 Troponin T 120 Minute 11.01 ng/L (0-15) 07/19/20 02:18 Delta Troponin T -0.99 ABS# (0-10) L 07/19/20 02:18 Troponin T Hi Sens 6Hr 11.32 ng/L (0-15) 07/19/20 06:00 Troponin T Hi Sens 6Hr Delta -0.68 ng/L (0-12) L 07/19/20 06:00 NT-Pro-B Natriuret Pep 1387 pg/mL (0-125) H 07/19/20 00:01 Total Protein 6.4 g/dL (6.6-8.7) L 07/22/20 03:33 Albumin 3.7 g/dL (3.5-5.2) 07/22/20 03:33 Globulin 2.7 g/dL (1.3-4.6) 07/22/20 03:33 Triglycerides 74 mg/dL (0-150) 07/19/20 06:00 Cholesterol 146 mg/dL (0-200) 07/19/20 06:00 LDL Cholesterol, Calc 89 mg/dL (50-129) 07/19/20 06:00 HDL Cholesterol 42 mg/dL (60-100) L 07/19/20 06:00 LDL/HDL Ratio 2.12 RATIO (0.00-3.22) 07/19/20 06:00 Cholesterol/HDL Ratio 3.48 mg/dL (1.0-5.00) 07/19/20 06:00 TSH 2.09 uIU/mL (0.27-4.20) 07/19/20 06:00 SARS-CoV-2 Ag (Rapid) Negative (Negative) 07/19/20 02:20 A&P Assessment and plan (1) Atrial fibrillation with rapid ventricular response: We will continue on the digoxin and metoprolol. Patient may be started on Xarelto this afternoon. If he continues to remain stable with a heart rate fairly under control, may be discharged home today Status: Acute (2) Acute diastolic heart failure: Most likely related to the arrhythmia and possible ischemia. May be treated with Lasix on a as needed basis. Status: Acute (3) Left lower lobe pneumonia: The antibiotic treatment as per the primary. Status: Acute Qualifiers: Pneumonia type: due to unspecified organism Qualified Code(s): J18.9 - Pneumonia, unspecified organism (4) Peripheral arterial disease: Patient may have some vasospastic component with no significant arterial obstruction. Status: Acute (5) Atherosclerotic heart disease of [place] coronary artery with other forms of angina pectoris: The cardiac catheterization findings are once again discussed with the patient. He seems understand this well. Status: Acute Additional A&P Information Other problems are #1 smoking abuse -strongly advised to quit smoking #2 COPD exacerbation-optimize the bronchodilator treatment as per the primary Once again the importance of lifestyle modification was discussed with the patient. If he continues remain stable, may be discharged home today. Attestations Medical Necessity Statement*: Possible discharge home today Coding Level of Care Code Acute Pedicurist for g Fwd Exam Problem Focused Medical Decision Making Moderate Complexity Diagnoses Atrial fibrillation with rapid ventricular response I48.91 Acute diastolic heart failure I50.31 Left lower lobe pneumonia J18.9 Pneumonia type: due to unspecified organism Peripheral arterial disease I73.9 Atherosclerotic heart disease of [place] coronary artery with other forms of angina pectoris I25.118
--- NOTE | 2020-07-22 09:31 | PC.NURSE ---
Ambulating down hallways Up ad lupe independently down hallways. HR-110s to 125s irregularly on Afib with ambulation. pt denies any pain or shortness of breath.
[2020-07-22] MEDS: enoxaparin 80 mg/0.8 mL Syringe SUBCUT (10:18)
[2020-07-22 10:53] LABS: Procalcitonin 0.04 ng/mL (0-0.5)
[2020-07-22 11:04] LABS: C Reactive Protein 1.8 mg/L (0.0-4.9)
--- NOTE | 2020-07-22 11:08 | PM.DCS ---
Discharge Providers Date of Admission: 07/19/20 03:00 Date of Discharge: July 22, 2020 Attending Provider at Admission: Emmy Alvarado MD Attending Provider at Discharge: Ciro Puente MD Diagnoses at Discharge Discharge Diagnosis (1) Atrial fibrillation with rapid ventricular response: Status: Acute (2) Acute diastolic heart failure: Status: Acute (3) Left lower lobe pneumonia: Status: Acute Qualifiers: Pneumonia type: due to unspecified organism Qualified Code(s): J18.9 - Pneumonia, unspecified organism (4) Abnormal nuclear stress test: Status: Acute (5) Peripheral arterial disease: Status: Acute Reason for Visit Reason for Visit: trouble catching breath Hospital Course Hospital Course This is a 54-year-old male with a past medical history of hypertension, COPD, smoker who presents to [facility] due to shortness of breath Patient was admitted to [facility] for shortness of breath multifactorial secondary to atrial fibrillation, pneumonia, CHF, COPD exacerbations For pneumonia, received inpatient antibiotics, remained afebrile, all cultures have been unremarkable, discharged on Levaquin for 5 days For COPD exacerbation, received Solu-Medrol, oxygen therapy, medical managed, clinically improved. Doing well on room air, ambulating without significant symptomatology, discharged on a prednisone burst, albuterol, Advair For CHF exacerbation, received inpatient Lasix, oxygen therapy, clinically improved, ambulating without significant symptomatology, discharged on Lasix 40 mg daily, potassium replacement, with a follow-up with cardiology, salt restriction, fluid restrictions 2 L. Patient was instructed that if he gains an extra 2 to 3 pounds over 2 days, take another 40 mg of Lasix. For atrial fibrillation exacerbation, new onset atrial fibrillation, received Cardizem drip, transitioned to digoxin and metoprolol, discharged on the metoprolol 37.5 mg twice daily, digoxin 125 mcg daily Given his shortness of breath, patient had electrocardiogram and stress test: -echo showed: 1-Normal left ventricular cavity size. Normal left ventricular systolic function. No regional wall motion abnormalities. Left ventricular ejection fraction is estimated at 55 %. In the presence of atrial fibrillation diastolic function cannot be assessed accurately. 2-The right ventricle is normal in size and function. Moderate pulmonary hypertension, RVSP 67 mmHg. 3-Mildly thickened mitral valve. No mitral valve stenosis. Severe mitral valve regurgitation. 4-Structurally normal aortic valve without significant sclerosis or stenosis. There is no aortic regurgitation. 5-Severe tricuspid valve regurgitation. 6-Moderate pulmonary valve regurgitation. -stress test showed: 1. Myocardial perfusion imaging is abnormal with small area of reversible perfusion defect noted in anterior wall. This likely represents ischemia. 2. LV systolic function is mildly reduced with EF of 44%. -Given positive stress test cardiology was consulted, patient had a cardiac angiogram, that did not show any significant obstructive CAD, discharged on aspirin, statin Patient was advised to quit smoking, quit alcohol consumption Physical Exam Const: COMMON NORMALS: no acute distress and patient oriented x3 HENMT: COMMON NORMALS: normocephalic HEAD & SCALP: normocephalic Neck/C-Spine: COMMON NORMALS: no JVD Resp: COMMON NORMALS: normal respiratory effort, No retractions, No use of accessory muscles and clear to auscultation bilaterally AUSCULTATION: clear to auscultation bilaterally Cardio: COMMON NORMALS: no JVD, regular rate, S1 normal heart sound present and S2 normal heart sound present RATE: regular rate RHYTHM: abnormal rhythm HEART SOUNDS: S1 normal heart sound present and S2 normal heart sound present GI: COMMON NORMALS: Normal to inspection, nondistended, normoactive bowel sounds present, Soft to palpation, non-tender, No hepatosplenomegaly present, no masses and no bruits PALPATION: Yes Soft to palpation and Yes No hepatosplenomegaly present Extremity: COMMON NORMALS: capillary refill normal, no clubbing, cyanosis or edema, no calf tenderness and no pedal edema Neuro: COMMON NORMALS: patient oriented x3 Psych: COMMON NORMALS: mental status grossly normal Discharge Data Data Completed and Pending: Completed Studies During Hospitalization Category Date Time Status CT angio chest PE protcl [id number] Urge nt Cat Scan 07/19/20 01:31 Completed SURVEY AND MAPPING TECHNICIAN request for service Routin e Exams 07/21/20 18:02 Completed Sestamibi Stress Test Request Routi ne Exams 07/20/20 06:00 Draft XR chest 1V luz ble [id number] Routine Exams 07/22/20 08:14 Completed XR chest 1V luz ble [id number] Stat Exams 07/18/20 23:59 Completed NM marlon perf SPECT r/s* [id number] Routin e Nuc Med 07/20/20 14:29 [place] [id number] Rout ine Ultrasound 07/21/20 06:00 Completed CV echo complete* [id number] Routine Ultrasound 07/19/20 05:59 Completed Pending at discharge Category Date Time Status Sestamibi Stress Test Request Reina ne Exams 07/19/20 14:29 Stop Req Blood Culture Sta t Lab 07/19/20 03:37 Results Labs from last 24 hours 07/22/20 07/22/20 07/22/20 03:33 03:33 03:33 WBC RBC Hgb Hct MCV MCH MCHC RDW Plt Count MPV Neut % (Auto) Lymph % (Auto) [place] % (Auto) Eos % (Auto) Baso % (Auto) Neut # (Auto) Lymph # (Auto) [place] # (Auto) Eos # (Auto) Baso # (Auto) Nucleated RBC % (a uto) Nucleated RBCs # Sodium 137 Potassium 4.2 Chloride 104 Carbon Dioxide 20 L Anion Gap 17.2 BUN 20 Creatinine 0.7 GFR Calculation 118.0 Glucose 126 H Calculated Osmolal ity 288 Calcium 9.4 Phosphorus 4.0 Magnesium 2.2 Total Bilirubin 1.1 AST 26 ALT 35 Alkaline Phosphata se 69 C-Reactive Protein 1.8 Total Protein 6.4 L Albumin 3.7 Globulin 2.7 Procalcitonin 0.04 07/22/20 03:33 WBC 18.7 H RBC 4.77 Hgb 15.6 Hct 48.0 MCV 100.6 H MCH 32.7 MCHC 32.5 RDW 14.1 Plt Count 192 MPV 10.4 Neut % (Auto) 92.1 Lymph % (Auto) 3.9 [place] % (Auto) 3.4 Eos % (Auto) 0.0 Baso % (Auto) 0.1 Neut # (Auto) 17.18 H Lymph # (Auto) 0.7 L [place] # (Auto) 0.6 Eos # (Auto) 0.0 Baso # (Auto) 0.0 Nucleated RBC % (a uto) 0 Nucleated RBCs # 0.0 Sodium Potassium Chloride Carbon Dioxide Anion Gap BUN Creatinine GFR Calculation Glucose Calculated Osmolal ity Calcium Phosphorus Magnesium Total Bilirubin AST ALT Alkaline Phosphata se C-Reactive Protein Total Protein Albumin Globulin Procalcitonin Vitals: Last Vital Signs Temp 97.5 F L 07/22/20 10:45 Pulse 100 07/22/20 10:45 Resp 18 07/22/20 10:45 BP 110/72 07/22/20 10:45 Pulse Ox 97 07/22/20 10:45 Discharge Plan Discharge Patient Disposition: Home Condition: Stable Prescriptions: New furosemide 40 mg Tablet 40 mg PO DAILY@0800 30 Days Qty: 30 RF: 0 atorvastatin 40 mg Tablet 40 mg PO DAILY 30 Days Qty: 30 RF: 0 Klor-Con M20 20 mEq Tablet,Er Particles/Crystals 20 meq PO DAILY 30 Days Qty: 30 RF: 0 digoxin 125 mcg (0.125 mg) Tablet 125 mcg PO DAILY 30 Days Qty: 30 RF: 0 metoprolol tartrate 25 mg Tablet 37.5 mg PO BID 30 Days Qty: 90 RF: 0 Mucinex 600 mg Tablet Extended Release 12hr 600 mg PO BID PRN (Reason: congestion) 15 Days Qty: 30 RF: 0 prednisone 20 mg tablet 20 mg PO BID 5 Days Qty: 10 RF: 0 levofloxacin 750 mg tablet 750 mg PO DAILY 5 Days Qty: 5 RF: 0 albuterol sulfate 90 mcg/actuation HFA aerosol inhaler 1 inh inhalation Q6H PRN (Reason: shortness of breath or wheezing) Qty: 18 RF: 0 Advair Diskus 250-50 mcg/dose blister with device 1 inh inhalation Q12H Qty: 60 RF: 0 Xarelto 20 mg tablet 20 mg PO QPM 30 Days Qty: 30 RF: 0 Discontinued cetirizine 10 mg Tablet 10 mg PO DAILY PRN (Reason: allegry) RF: 0 omeprazole magnesium [Prilosec OTC] 20 mg Tablet,Delayed Release (Dr/Ec) 20 mg PO DAILY RF: 0 Discharge Orders: Discharge Order (Routine); Ordered 07/22/20 Ordered By: Ciro Puente Other Ambulatory Orders: Complete Blood Count w/Auto (Routine) Timeframe: 1 Week Location: Determined by Patient Ordered By: Ciro Puente Comprehensive Metabolic Panel (Routine) Timeframe: 1 Week Facility: [facility] - Location: Lab - Main Lab Ordered By: Ciro Puente Referrals: Leann Aranda MD [Physician] - 2 weeks (Please follow-up with Dr. Aranda on August 06 at 1:45p.m. If you have any questions or need to reschedule. Please call ) Edwardo Jo MD [Physician] - 2 weeks (Please, follow-up with Dr. Jo on August 06 ay 11:30a.m. If you have any questions or need to reschedule. Please call ) Discharge Diet: Cardiac Discharge Activity: Resume usual activity Patient Instructions: Metoprolol (By mouth), Digoxin (By mouth), Furosemide (By mouth), Decongestant/Expectorant (By mouth), Albuterol (By breathing), Prednisone (By mouth), Potassium Chloride (By mouth), Aspirin (By mouth), Atorvastatin (By mouth), Levofloxacin (By mouth), Fluticasone/Salmeterol (By breathing), Rivaroxaban (By mouth), Atrial Fibrillation (DC), Left Heart Catheterization (DC), Peripheral Artery Disease (DC), Community-acquired Pneumonia (DC), COPD Stoplight, Post Angiogram Home Care Instructions Activity Restrictions/Additional Instructions: -Please take Xarelto starting tonight -continue metoprolol and digoxin for atrial fibrillation -Aspirin, statin -If you have any signs of bleeding, bloody or black stools come to the emergency room -Lasix 40 mg daily -Levaquin for pneumonia Discharge Attestations Time Spent in Discharge Care*: less than 30 min Quality Metrics Clinical Quality Measures During this hospital stay, did patient experience: None Coding Level of Care Code Acute Security Shift Supervisor for Raoul Fwd Diagnoses Atrial fibrillation with rapid ventricular response I48.91 Acute diastolic heart failure I50.31 Left lower lobe pneumonia J18.9 Pneumonia type: due to unspecified organism Abnormal nuclear stress test R94.39 Peripheral arterial disease I73.9
[2020-07-22] MEDS: metoprolol tartrate 25 mg Tablet 12.5 MG PO (11:16)
--- NOTE | 2020-07-22 11:45 | PC.NURSE ---
Pharmacy of choice is [facility] Offered pt our meds to bed delivery service, [facility] discharge meds. Called Pharmacy.
--- NOTE | 2020-07-22 11:58 | PC.NURSE ---
Jamia coupon given to pt Coupon ID provided to Pharmacy.
--- NOTE | 2020-07-22 12:02 | PC.NURSE ---
Notified Dr Aranda on pt's discharge order to hold for consulting Dr Aranda stated pt is okay to be discharge. Discuss to him pt's discharge meds. Received telephone order read back to discontinue Aspirin upon discharge due to pt already on Xarelto 20 mg to start tonight. Aspirin DC in discharge meds per Dr. Aranda order.
--- NOTE | 2020-07-22 16:00 | PC.NURSE ---
Instructed pt to check his blood pressure and heart rate at home twice a day And keep a record of it to bring to his follow-up appointments. Pt educated on to stop smoking and moderation of alcohol. Pt and at bedside during education and discharge instructions. Discharge packet provided to pt. Notified of his HR in 110s to 125s not sustaining all the time. Pt had breathing treatment 2 hours ago. Received Metoprolol 50 mg orally increased dose. Pt is anxious to go home. Reassured pt to check his BP and heart rate when at home. He verbalizes understanding.
[2020-07-22] MEDS: metoprolol tartrate 50 mg Tablet PO (16:08)
--- NOTE | 2020-07-22 17:20 | P.PN_ITS ---
Subjective Subjective: Interval history: Patient was examined multiple times throughout the day, in the morning he was feeling well, ready to go home, no shortness of breath, no chest pain, no lightheaded, no dizziness, no nausea no vomiting This evening, patient kept having episodes of A. fib, heart rates in the high 120s, metoprolol was increased to 50 twice daily, however heart rates are still in the 120s After discussion of the risks and benefits, patient voiced understanding, all questions answered, agreed to stay for continuous monitoring, he might require Cardizem in addition, will have to monitor blood pressures closely,, will also consider cardioversion Vitals/I&O/Wt Last Vital Signs Temp 97.5 F L 07/22/20 10:45 Pulse 98 07/22/20 15:24 Resp 18 07/22/20 15:18 BP 110/72 07/22/20 10:45 Pulse Ox 97 07/22/20 15:18 07/22/20 07/22/20 07/22/20 06:59 14:59 22:59 Intake Total 1500 / 1860 600 / 600 Output Total 1500 / 3550 Balance 0 / -1690 600 / 600 Weight last 48 hrs Weight 81.873 kg Weight 82.214 kg Physical Exam Const: COMMON NORMALS: no acute distress and patient oriented x3 HENMT: COMMON NORMALS: normocephalic HEAD & SCALP: normocephalic Neck/C-Spine: COMMON NORMALS: no JVD Resp: COMMON NORMALS: normal respiratory effort, No retractions, No use of accessory muscles and clear to auscultation bilaterally AUSCULTATION: clear to auscultation bilaterally Cardio: COMMON NORMALS: no JVD, S1 normal heart sound present and S2 normal heart sound present RATE: tachycardic RHYTHM: abnormal rhythm HEART SOUNDS: S1 normal heart sound present and S2 normal heart sound present GI: COMMON NORMALS: Normal to inspection, nondistended, normoactive bowel sounds present, Soft to palpation, non-tender, No hepatosplenomegaly present, no masses and no bruits PALPATION: Yes Soft to palpation and Yes No hepatosplenomegaly present Extremity: COMMON NORMALS: capillary refill normal, no clubbing, cyanosis or edema, no calf tenderness and no pedal edema Neuro: COMMON NORMALS: patient oriented x3 Psych: COMMON NORMALS: mental status grossly normal Data : 07/22/20 03:33 07/22/20 03:33 A&P Assessment and plan (1) Atrial fibrillation with rapid ventricular response: Status: Acute (2) Acute diastolic heart failure: Status: Acute (3) Left lower lobe pneumonia: Left lower lobe pneumonia, continue Rocephin azithromycin Status: Acute Qualifiers: Pneumonia type: due to unspecified organism Qualified Code(s): J18.9 - Pneumonia, unspecified organism (4) Abnormal nuclear stress test: Status: Acute (5) Peripheral arterial disease: Status: Acute Additional A&P Information Atrial fibrillation: new onset A fib with RVR, appears to be ongoing for a week per history Continues to have A. fib with digoxin 125 mcg daily, Metroprolol not 50 twice daily, might require Cardizem p.o., will require close monitoring of blood pressures Has evidence of CHF, continue Lasix 40 mg p.o. daily 40 mg every 24 hours Monitor I/O closely , daily weight check echocardiogram : EF of 55%, no regional wall motion abnormalities, moderate pulmonary hypertension, severe mitral valve regurg, severe tricuspid valve regurg, moderate pulmonary valve regurg Positive cardiac stress test Cardiac stress angiogram no significant obstructive CAD A1c within normal limits, TSH within normal limits, mag within normal limits Dimitris vas 2, Xarelto starting at 10 PM tonight Currently on ASA 81 mg qd COPD (chronic obstructive pulmonary disease): Chronic smoker with chronic cough at least 15 years, CXR with findings of COPD COPD exacerbation may be the trigger for A fib suppelemtal 02 to keep saturation >90% duonebs q6h as scheduled nebulization prednisone 40mg po qd PFTs as outpatient Status: Acute Hypoxia: likely as a combination of COPD and CHF from A fib with RVR 02 as above Lasix 40 mg daily started duonebs covid ag negative Status: Acute Hilar adenopathy: Will require outpatient follow-up with pulmonary Status: Acute Left lower lobe pneumonia: Switch to Levaquin Positive cardiac stress test: -1. Myocardial perfusion imaging is abnormal with small area of reversible perfusion defect noted in anterior wall. This likely represents ischemia. 2. LV systolic function is mildly reduced with EF of 44%. -Cardiac cath does not show any obstructive CAD Attestations Medical Necessity Statement*: Patient requires continued hospitalization due to A. fib with RVR Coding Level of Care Code Acute Environmental Law Professor for Chg Fwd Diagnoses Atrial fibrillation with rapid ventricular response I48.91 Acute diastolic heart failure I50.31 Left lower lobe pneumonia J18.9 Pneumonia type: due to unspecified organism Abnormal nuclear stress test R94.39 Peripheral arterial disease I73.9
--- NOTE | 2020-07-22 18:00 | PC.NURSE ---
Discharge on hold due to pt's Heart rate Dr. Puente came in at bedside and speak with the pt and regarding holding discharge on pt today due to his increasing HR in 110s to 125s. Pt and verbalizes understanding.
--- NOTE | 2020-07-22 18:58 | PC.NURSE ---
Informed Dr Puente of increasing heart rate. Received order for Metoprolol 5mg IVP for heart rate sustained >130.
[2020-07-22] MEDS: rivaroxaban 10 mg Tablet 20 MG PO (20:32)
[2020-07-22] MEDS: CLONazepam 0.5 mg Tablet PO (20:33)
--- NOTE | 2020-07-22 20:37 | PC.NURSE ---
Received report from MEGAN Polanco. Patient up in chair. Heart rate between 116-130. Not sustaining above 130 for more than a few seconds. Discussed plan for the night. Patient requesting something for anxiety and sleep. Administered medications as ordered. Patient denies pain, increased SOB or other needs. No distress observed.
[2020-07-23] VITALS (25 sets, daily range): BP systolic 94–116; BP diastolic 61–97; PULSE 68–127; RESP 12–37; TEMP 35.7–36.6; O2SAT 86–100
--- NOTE | 2020-07-23 03:14 | PC.NURSE ---
Heart Rate Patient heart rate fluctuates between 99-120 throughout the night while sleep. Will increase to low 130s during activity but is not sustaining that level. No distress observed.
[2020-07-23] MEDS: levoFLOXacin 750 mg Tablet PO (05:55)
[2020-07-23] MEDS: digoxin 125 mcg Tablet PO (08:47)
[2020-07-23] MEDS: metoprolol tartrate 50 mg Tablet PO (08:48)
[2020-07-23] MEDS: aspirin 81 mg EC Tablet PO (08:48)
[2020-07-23] MEDS: potassium chloride ER 20 mEq Tablet 40 MEQ PO (08:48)
[2020-07-23] MEDS: FUROsemide 40 mg Tablet PO (08:48)
[2020-07-23] MEDS: predniSONE 20 mg Tablet 40 MG PO (08:48)
[2020-07-23] MEDS: guaiFENesin 600 mg Tablet PO ×2 (08:48→18:17)
[2020-07-23] MEDS: atorvastatin 40 mg Tablet PO (08:48)
--- NOTE | 2020-07-23 09:04 | PM.PN ---
Subjective Subjective: Interval history: The discharge was canceled yesterday because of the atrial fibrillation rapid ventricular rate. Patient was complaining of some fatigue and weakness with a rapid rate. His blood pressure also was running in the low normal side, but not into the 90s. He was given digoxin, metoprolol and Cardizem. The rate is still remains uncontrolled. Medications: Reviewed: Yes Medication Review Details: Current Medications Acetaminophen (Acetaminophen 325 Mg Tablet) 650 mg PO Q6H PRN PRN Reason: Mild/Mod Pain Or Temp >/= 101 Al Hydrox/Mg Hydrox/Simethicone (Wpsv-Hrq-Rdlzhzhcf-James 30 Ml Udc) 30 ml PO Q15M PRN PRN Reason: INDIGESTION Albuterol/Ipratropium (Ipratropium-Albuterol 3 Ml Neb) 3 ml INHALATION Q6H.RESPIRATORY [facility] Last Admin: 07/23/20 03:15 Dose: Not Given Documented by: Aspirin (Aspirin 81 Mg Ec Tablet) 81 mg PO DAILY [facility] Last Admin: 07/23/20 08:48 Dose: 81 mg Documented by: Atorvastatin Calcium (Atorvastatin 40 Mg Tablet) 40 mg PO DAILY [facility] Last Admin: 07/23/20 08:48 Dose: 40 mg Documented by: Clonazepam (Clonazepam 0.5 Mg Tablet) 0.5 mg PO TID PRN PRN Reason: ANXIETY Last Admin: 07/22/20 20:33 Dose: 0.5 mg Documented by: Digoxin (Digoxin 125 Mcg Tablet) 125 mcg PO DAILY [facility] Last Admin: 07/23/20 08:47 Dose: 125 mcg Documented by: Furosemide (Furosemide 40 Mg Tablet) 40 mg PO DAILY@0800 [facility] Last Admin: 07/23/20 08:48 Dose: 40 mg Documented by: Guaifenesin (Guaifenesin 600 Mg Tablet) 600 mg PO BID [facility] Last Admin: 07/23/20 08:48 Dose: 600 mg Documented by: Levofloxacin (Levofloxacin 750 Mg Tablet) 750 mg PO DAILY@0600 [facility]; Protocol Last Admin: 07/23/20 05:55 Dose: 750 mg Documented by: Magnesium Hydroxide (Magnesium Hydroxide 30 Ml Udc) 30 ml PO DAILY PRN PRN Reason: CONSTIPATION Metoprolol Tartrate (Metoprolol Tartrate 1 Mg/1 Ml Sdv 5 Ml) 5 mg IV Q4H PRN PRN Reason: HEART RATE-HIGH Metoprolol Tartrate (Metoprolol Tartrate 50 Mg Tablet) 50 mg PO BID [facility] Naloxone HCl (Naloxone 0.4 Mg/Ml Sdv) 0.1 mg IVP Q2M PRN PRN Reason: RESPIRATORY RATE < 8/MIN Nitroglycerin (Nitroglycerin 0.4 Mg Sublingual Tablet) 0.4 mg SUBLINGUAL Q5M PRN PRN Reason: CHEST PAIN Ondansetron HCl (Ondansetron 2 Mg/Ml Sdv 2 Ml) 4 mg IVP Q8H PRN PRN Reason: vomiting, or N/V if npo Ondansetron HCl (Ondansetron 2 Mg/Ml Sdv 2 Ml) 4 mg IVP Q2M PRN PRN Reason: NAUSEA Potassium Chloride (Potassium Chloride Er 20 Meq Tablet) 40 meq PO DAILY [facility] Last Admin: 07/23/20 08:48 Dose: 40 meq Documented by: Prednisone (Prednisone 20 Mg Tablet) 40 mg PO DAILY [facility] Last Admin: 07/23/20 08:48 Dose: 40 mg Documented by: Propafenone HCl (Propafenone 150 Mg Tablet) 150 mg PO TID [facility] Rivaroxaban (Rivaroxaban 10 Mg Tablet) 20 mg PO Q24H [facility] Last Admin: 07/22/20 20:32 Dose: 20 mg Documented by: Vitals/I&O/Wt Last Vital Signs Temp 96.2 F L 07/23/20 07:34 Pulse 112 H 07/23/20 08:47 Resp 17 07/23/20 07:34 BP 115/97 07/23/20 07:34 Pulse Ox 99 07/23/20 07:34 07/22/20 07/23/20 07/23/20 22:59 06:59 14:59 Intake Total 360 / 960 480 / 480 Output Total 600 / 600 Balance 360 / 960 -600 / 360 480 / 480 Weight last 48 hrs Weight 182 lb 6.4 oz Weight 180 lb 8 oz Physical Exam Narrative: EXAM NARRATIVE: GENERAL: The patient is alert and oriented times three. Not in any acute distress. HEENT: No significant pallor, icterus or lymphadenopathy. Pupils are symmetrical NECK: Trachea appears to be central. No masses noted. No JVD or thyromegaly appreciated. No carotid bruit. RESPIRATORY: Chest is symmetrical. No intercostals muscle retraction or any accessory muscle activation. There is no chest wall tenderness. Breath sounds are heard bilaterally. No rales or rhonchi heard. No evidence of any consolidation. BREASTS: Deferred. HEART: The PMI is in the 5th left intercostals space just inside the midclavicular line. No palpable precordial events. The first heart sound is variable second arteries normal. No S3. Systolic murmur of grade 3/6 in the mitral area and in the tricuspid area. No diastolic murmurs. No pericardial rub ABDOMEN: No vessel pulsations or distention. No tenderness. No organomegaly appreciated. No abdominal bruit. Bowel sounds are normally heard. : Deferred. RECTAL: Deferred. LYMPHATIC: No lymphadenopathy noted in the neck or groin. EXTREMITIES: No edema or cyanosis peripheral pulses are very weak bilaterally more so of the dorsalis pedis pulses. No evidence of cyanosis. The radial arterial puncture site has no hematoma or bleeding MUSCULOSKELETAL: No acute joint deformities or swelling SKIN: There are no significant scars or skin rash noted. NEUROPSYCHIATRIC: No focal motor deficits. Const: COMMON NORMALS: alert Neuro: SENSORIUM/ORIENTATION: Yes alert Data : 07/22/20 03:33 07/22/20 03:33 Other Labs: Laboratory Last Values WBC 18.7 10^3/uL (4.0-10.0) H 07/22/20 03:33 RBC 4.77 10^6/uL (4.1-5.3) 07/22/20 03:33 Hgb 15.6 g/dL (11.7-16.6) 07/22/20 03:33 Hct 48.0 % (42.0-52.0) 07/22/20 03:33 MCV 100.6 fL (80-94) H 07/22/20 03:33 MCH 32.7 pg (28.0-34.0) 07/22/20 03:33 MCHC 32.5 g/dL (30.0-36.0) 07/22/20 03:33 RDW 14.1 % (12.1-15.1) 07/22/20 03:33 Plt Count 192 10^3/cmm (130-400) 07/22/20 03:33 MPV 10.4 fL (7.4-10.4) 07/22/20 03:33 Neut % (Auto) 92.1 % 07/22/20 03:33 Lymph % (Auto) 3.9 % 07/22/20 03:33 Terrell % (Auto) 3.4 % 07/22/20 03:33 Eos % (Auto) 0.0 % 07/22/20 03:33 Baso % (Auto) 0.1 % 07/22/20 03:33 Neut # (Auto) 17.18 10^3/uL (1.8-7.7) H 07/22/20 03:33 Lymph # (Auto) 0.7 10^3/uL (0.8-4.8) L 07/22/20 03:33 Terrell # (Auto) 0.6 10^3/uL (0.2-0.9) 07/22/20 03:33 Eos # (Auto) 0.0 10^3/uL (0.0-0.8) 07/22/20 03:33 Baso # (Auto) 0.0 10^3/uL (0.0-0.1) 07/22/20 03:33 Nucleated RBC % (auto) 0 % 07/22/20 03:33 Nucleated RBCs # 0.0 /100WBC 07/22/20 03:33 D-Dimer 1.18 ug/mIFEU (0-0.59) H 07/19/20 00:01 Sodium 137 mmol/L (136-145) 07/22/20 03:33 Potassium 4.2 mmol/L (3.5-5.1) 07/22/20 03:33 Chloride 104 mmol/L (98-107) 07/22/20 03:33 Carbon Dioxide 20 mmol/L (22-29) L 07/22/20 03:33 Anion Gap 17.2 (5-19) 07/22/20 03:33 BUN 20 mg/dL (6-20) 07/22/20 03:33 Creatinine 0.7 mg/dL (0.7-1.2) 07/22/20 03:33 GFR Calculation 118.0 mL/min (90-130) 07/22/20 03:33 Glucose 126 mg/dL (65-115) H 07/22/20 03:33 Estimat Average Glucose 114 07/19/20 06:00 Hemoglobin A1c 5.6 % (4.0-6.0) 07/19/20 06:00 Calculated Osmolality 288 mOsm/kg (285-295) 07/22/20 03:33 Calcium 9.4 mg/dL (8.5-10.5) 07/22/20 03:33 Phosphorus 4.0 mg/dL (2.5-4.5) 07/22/20 03:33 Magnesium 2.2 mg/dL (1.7-2.3) 07/22/20 03:33 Total Bilirubin 1.1 mg/dL (0.15-1.2) 07/22/20 03:33 AST 26 U/L (0-40) 07/22/20 03:33 ALT 35 U/L (0-41) 07/22/20 03:33 Alkaline Phosphatase 69 IU/L (40-130) 07/22/20 03:33 Troponin T Baseline 12 ng/L (0-15) 07/19/20 00:01 Troponin T 120 Minute 11.01 ng/L (0-15) 07/19/20 02:18 Delta Troponin T -0.99 ABS# (0-10) L 07/19/20 02:18 Troponin T Hi Sens 6Hr 11.32 ng/L (0-15) 07/19/20 06:00 Troponin T Hi Sens 6Hr Delta -0.68 ng/L (0-12) L 07/19/20 06:00 C-Reactive Protein 1.8 mg/L (0.0-4.9) 07/22/20 03:33 NT-Pro-B Natriuret Pep 1387 pg/mL (0-125) H 07/19/20 00:01 Total Protein 6.4 g/dL (6.6-8.7) L 07/22/20 03:33 Albumin 3.7 g/dL (3.5-5.2) 07/22/20 03:33 Globulin 2.7 g/dL (1.3-4.6) 07/22/20 03:33 Triglycerides 74 mg/dL (0-150) 07/19/20 06:00 Cholesterol 146 mg/dL (0-200) 07/19/20 06:00 LDL Cholesterol, Calc 89 mg/dL (50-129) 07/19/20 06:00 HDL Cholesterol 42 mg/dL (60-100) L 07/19/20 06:00 LDL/HDL Ratio 2.12 RATIO (0.00-3.22) 07/19/20 06:00 Cholesterol/HDL Ratio 3.48 mg/dL (1.0-5.00) 07/19/20 06:00 Procalcitonin 0.04 ng/mL (0-0.5) 07/22/20 03:33 TSH 2.09 uIU/mL (0.27-4.20) 07/19/20 06:00 SARS-CoV-2 Ag (Rapid) Negative (Negative) 07/19/20 02:20 A&P Assessment and plan (1) Atrial fibrillation with rapid ventricular response: Because of the ongoing atrial fibrillation rapid ventricular rate in spite of being on 3 AV randolph blocking agents and also the relatively low blood pressure, for further management of his condition, electrical cardioversion may be appropriate. This was discussed with the patient in detail which is understood well. Patient wanted to go ahead with the procedure. We may schedule this for this afternoon. Status: Acute (2) Acute diastolic heart failure: Most likely the heart failure is secondary to the arrhythmia, left ventricular diastolic dysfunction and valvular heart disease. He may be treated with diuretics on a as needed basis. Status: Acute (3) Left lower lobe pneumonia: The antibiotic treatment as per the primary. Status: Acute Qualifiers: Pneumonia type: due to unspecified organism Qualified Code(s): J18.9 - Pneumonia, unspecified organism (4) Peripheral arterial disease: Patient may have some vasospastic component with no significant arterial obstruction. Status: Acute (5) Atherosclerotic heart disease of [place] coronary artery with other forms of angina pectoris: Patient has mild atherosclerotic heart disease. Status: Acute (6) 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: Mitral and tricuspid regurgitation is reported as severe by transthoracic echocardiogram. We may do a CHIQUIS prior to the cardioversion to better evaluate the valve and rule out intracardiac masses. Patient may require valve intervention, for further management. Status: Acute Additional A&P Information Other problems are #1 smoking abuse -strongly advised to quit smoking #2 COPD exacerbation-optimize the bronchodilator treatment as per the primary #3. Elevated white cell count, possibly from the steroids Once again the importance of lifestyle modification was discussed with the patient. We may go out and start him on propafenone 150 mg p.o. 3 times daily. If the patient continues to remain stable consider discharging home tomorrow after the cardioversion Attestations Medical Necessity Statement*: Patient requires continued hospital stay for close monitoring and further management Coding Level of Care Code Acute Tavern Operator for Chg Fwd Exam Problem Focused Diagnoses Atrial fibrillation with rapid ventricular response I48.91 Acute diastolic heart failure I50.31 Left lower lobe pneumonia J18.9 Pneumonia type: due to unspecified organism Peripheral arterial disease I73.9 Atherosclerotic heart disease of [place] coronary artery with other forms of angina pectoris I25.118 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
[2020-07-23] MEDS: propafenone 150 mg Tablet PO ×3 (09:23→20:23)
[2020-07-23] MEDS: ipratropium-albuterol 3 mL Neb INHALATION ×3 (09:59→20:33)
--- NOTE | 2020-07-23 12:50 | ANES.PREANE2 ---
Pre-Anesthetic Assessment Pre-Anesthetic Assessment: Height/Weight: Height 1.75 m Weight 82.735 kg Temp Pulse Resp BP Pulse Ox 97.8 F 68 18 116/93 96 07/23/20 11:25 07/23/20 11:25 07/23/20 11:25 07/23/20 11:25 07/23/20 11:25 Preop Diagnosis: Abnormal stress test Proposed Procedure: Operation Date: 07/21/20 17:00 Proposed Procedures p Cardiac Catheterization(Left) - Leann Aranda MD Operation Date: 07/23/20 16:35 Proposed Procedures p Cardioversion(Not Applicable) - Leann Aranda MD s CHIQUIS(Not Applicable) - Leann Aranda MD Familial anesthetic complications: None Was Beta Emeka taken within 24 hours: Yes Last intake: Breakfast at 0700 Social: Social History: Alcohol and Tobacco Exam: Pre-Anes Outpt Exam: alert, oriented x 3, clear to auscultation bilaterally and regular rate & rhythm Airway: Cervical ROM: WNL MP: 3 Dentition: Full Pulmonary: Pulmonary: COPD Comments: L lower lobe pneumonia CV/HEM: CV/HEM: Afib (w/ rvr), CAD, CHF (acte), HTN and PVD Comments: echo - EF 55%, severe MVR, TVR, and mod pulm HTN and regurge Anesthetic Plan: ASA status: 4 Anesthesia: MAC Risk of > 500 ml blood loss (7ml/kg in children): No Meds/Allergies Current Medications: Current Medications Generic Name Dose Route Start Last Admin Trade Name Freq PRN Reason Stop Dose Admin Albuterol/Ipratrop ium 3 ml 07/19/20 09:00 07/23/20 09:59 Ipratropium-Albu terol 3 Ml Neb INHALATION 3 ml Q6H.RESPIRATORY S CH Administration Aspirin 81 mg 07/19/20 09:00 07/23/20 08:48 Aspirin 81 Mg Ec Tablet PO 81 mg DAILY NICK Administration Atorvastatin Calci um 40 mg 07/21/20 09:00 07/23/20 08:48 Atorvastatin 40 Mg Tablet PO 40 mg DAILY NICK Administration Clonazepam 0.5 mg 07/20/20 13:53 07/22/20 20:33 Clonazepam 0.5 M g Tablet PO 0.5 mg TID PRN Administration ANXIETY Digoxin 125 mcg 07/23/20 09:00 07/23/20 08:47 Digoxin 125 Mcg Tablet PO 125 mcg DAILY NICK Administration Furosemide 40 mg 07/23/20 08:30 07/23/20 08:48 Furosemide 40 Mg Tablet PO 40 mg DAILY@0800 NICK Administration Guaifenesin 600 mg 07/21/20 09:00 07/23/20 08:48 Guaifenesin 600 Mg Tablet PO 600 mg BID NICK Administration Levofloxacin 750 mg 07/23/20 06:00 07/23/20 05:55 Levofloxacin 750 Mg Tablet PO 750 mg DAILY@0600 NICK Administration Protocol Potassium Chloride 40 meq 07/20/20 18:00 07/23/20 08:48 Potassium Chlori de Er 20 Meq Table t PO 40 meq DAILY NICK Administration Prednisone 40 mg 07/23/20 09:00 07/23/20 08:48 Prednisone 20 Mg Tablet PO 40 mg DAILY NICK Administration Propafenone HCl 150 mg 07/23/20 09:00 07/23/20 09:23 Propafenone 150 Mg Tablet PO 150 mg TID NICK Administration Rivaroxaban 20 mg 07/22/20 22:00 07/22/20 20:32 Rivaroxaban 10 M g Tablet PO 20 mg Q24H NICK Administration Additional Medication Information: Current Medications Acetaminophen (Acetaminophen 325 Mg Tablet) 650 mg PO Q6H PRN PRN Reason: Mild/Mod Pain Or Temp >/= 101 Al Hydrox/Mg Hydrox/Simethicone (Zvex-Mzc-Zythbqbdk-James 30 Ml Udc) 30 ml PO Q15M PRN PRN Reason: INDIGESTION Albuterol/Ipratropium (Ipratropium-Albuterol 3 Ml Neb) 3 ml INHALATION Q6H.RESPIRATORY [facility] Last Admin: 07/23/20 03:15 Dose: Not Given Documented by: Aspirin (Aspirin 81 Mg Ec Tablet) 81 mg PO DAILY [facility] Last Admin: 07/23/20 08:48 Dose: 81 mg Documented by: Atorvastatin Calcium (Atorvastatin 40 Mg Tablet) 40 mg PO DAILY [facility] Last Admin: 07/23/20 08:48 Dose: 40 mg Documented by: Clonazepam (Clonazepam 0.5 Mg Tablet) 0.5 mg PO TID PRN PRN Reason: ANXIETY Last Admin: 07/22/20 20:33 Dose: 0.5 mg Documented by: Digoxin (Digoxin 125 Mcg Tablet) 125 mcg PO DAILY [facility] Last Admin: 07/23/20 08:47 Dose: 125 mcg Documented by: Furosemide (Furosemide 40 Mg Tablet) 40 mg PO DAILY@0800 [facility] Last Admin: 07/23/20 08:48 Dose: 40 mg Documented by: Guaifenesin (Guaifenesin 600 Mg Tablet) 600 mg PO BID [facility] Last Admin: 07/23/20 08:48 Dose: 600 mg Documented by: Levofloxacin (Levofloxacin 750 Mg Tablet) 750 mg PO DAILY@0600 [facility]; Protocol Last Admin: 07/23/20 05:55 Dose: 750 mg Documented by: Magnesium Hydroxide (Magnesium Hydroxide 30 Ml Udc) 30 ml PO DAILY PRN PRN Reason: CONSTIPATION Metoprolol Tartrate (Metoprolol Tartrate 1 Mg/1 Ml Sdv 5 Ml) 5 mg IV Q4H PRN PRN Reason: HEART RATE-HIGH Metoprolol Tartrate (Metoprolol Tartrate 50 Mg Tablet) 50 mg PO BID [facility] Naloxone HCl (Naloxone 0.4 Mg/Ml Sdv) 0.1 mg IVP Q2M PRN PRN Reason: RESPIRATORY RATE < 8/MIN Nitroglycerin (Nitroglycerin 0.4 Mg Sublingual Tablet) 0.4 mg SUBLINGUAL Q5M PRN PRN Reason: CHEST PAIN Ondansetron HCl (Ondansetron 2 Mg/Ml Sdv 2 Ml) 4 mg IVP Q8H PRN PRN Reason: vomiting, or N/V if npo Ondansetron HCl (Ondansetron 2 Mg/Ml Sdv 2 Ml) 4 mg IVP Q2M PRN PRN Reason: NAUSEA Potassium Chloride (Potassium Chloride Er 20 Meq Tablet) 40 meq PO DAILY [facility] Last Admin: 07/23/20 08:48 Dose: 40 meq Documented by: Prednisone (Prednisone 20 Mg Tablet) 40 mg PO DAILY [facility] Last Admin: 07/23/20 08:48 Dose: 40 mg Documented by: Propafenone HCl (Propafenone 150 Mg Tablet) 150 mg PO TID [facility] Rivaroxaban (Rivaroxaban 10 Mg Tablet) 20 mg PO Q24H [facility] Last Admin: 07/22/20 20:32 Dose: 20 mg Documented by: PFSH Anesthesia PFS: Medical History (Updated 07/23/20 @ 09:02 by Leann Aranda MD) Atherosclerotic heart disease of [place] coronary artery with other forms of angina pectoris Atrial fibrillation with rapid ventricular response Family History (Updated 07/20/20 @ 18:25 by Leann Aranda MD) Father Arrhythmia, atrial Grandfather Arrhythmia, atrial Grandmother Arrhythmia, atrial Other CAD (coronary artery disease) Data Anesthesia CBC & Chem 7: 07/22/20 03:33 07/22/20 03:33 Other Labs: Laboratory Results - last 48 hr 07/22/20 07/22/20 07/22/20 03:33 03:33 03:33 WBC 18.7 H RBC 4.77 Hgb 15.6 Hct 48.0 MCV 100.6 H MCH 32.7 MCHC 32.5 RDW 14.1 Plt Count 192 MPV 10.4 Neut % (Auto) 92.1 Lymph % (Auto) 3.9 [place] % (Auto) 3.4 Eos % (Auto) 0.0 Baso % (Auto) 0.1 Neut # (Auto) 17.18 H Lymph # (Auto) 0.7 L [place] # (Auto) 0.6 Eos # (Auto) 0.0 Baso # (Auto) 0.0 Nucleated RBC % (auto) 0 Nucleated RBCs # 0.0 Sodium 137 Potassium 4.2 Chloride 104 Carbon Dioxide 20 L Anion Gap 17.2 BUN 20 Creatinine 0.7 GFR Calculation 118.0 Glucose 126 H Calculated Osmolality 288 Calcium 9.4 Phosphorus 4.0 Magnesium 2.2 Total Bilirubin 1.1 AST 26 ALT 35 Alkaline Phosphatase 69 C-Reactive Protein Total Protein 6.4 L Albumin 3.7 Globulin 2.7 Procalcitonin 07/22/20 03:33 WBC RBC Hgb Hct MCV MCH MCHC RDW Plt Count MPV Neut % (Auto) Lymph % (Auto) [place] % (Auto) Eos % (Auto) Baso % (Auto) Neut # (Auto) Lymph # (Auto) [place] # (Auto) Eos # (Auto) Baso # (Auto) Nucleated RBC % (auto) Nucleated RBCs # Sodium Potassium Chloride Carbon Dioxide Anion Gap BUN Creatinine GFR Calculation Glucose Calculated Osmolality Calcium Phosphorus Magnesium Total Bilirubin AST ALT Alkaline Phosphatase C-Reactive Protein 1.8 Total Protein Albumin Globulin Procalcitonin 0.04 Cardiac Studies: No Data to Display
--- NOTE | 2020-07-23 15:14 | P.PN_ITS ---
Subjective Subjective: Interval history: This morning patient was examined, he is heart rates are fairly well controlled overnight, but tells me that when he woke up this morning, started coughing, his heart rate got in the high 150s, no fevers, no chills, no nausea, no vomiting, no chest pain, is having a hacking cough, bringing up productive cough, he feels like this is likely smoker's cough after quitting Vitals/I&O/Wt Last Vital Signs Temp 97.8 F 07/23/20 11:25 Pulse 91 07/23/20 14:00 Resp 18 07/23/20 11:25 BP 116/93 07/23/20 11:25 Pulse Ox 96 07/23/20 11:25 07/23/20 07/23/20 07/23/20 06:59 14:59 22:59 Intake Total 480 / 480 Output Total 600 / 600 1520 / 1520 Balance -600 / 360 -1040 / -1040 Weight last 48 hrs Weight 82.735 kg Weight 81.873 kg Physical Exam Const: COMMON NORMALS: no acute distress and patient oriented x3 HENMT: COMMON NORMALS: normocephalic HEAD & SCALP: normocephalic Neck/C-Spine: COMMON NORMALS: no JVD Resp: COMMON NORMALS: normal respiratory effort, No retractions, No use of accessory muscles and clear to auscultation bilaterally AUSCULTATION: clear to auscultation bilaterally Cardio: COMMON NORMALS: no JVD, S1 normal heart sound present and S2 normal heart sound present RATE: tachycardic RHYTHM: abnormal rhythm HEART SOUNDS: S1 normal heart sound present and S2 normal heart sound present GI: COMMON NORMALS: Normal to inspection, nondistended, normoactive bowel sounds present, Soft to palpation, non-tender, No hepatosplenomegaly present, no masses and no bruits PALPATION: Yes Soft to palpation and Yes No hepatosplenomegaly present Extremity: COMMON NORMALS: capillary refill normal, no clubbing, cyanosis or edema, no calf tenderness and no pedal edema Neuro: COMMON NORMALS: patient oriented x3 Psych: COMMON NORMALS: mental status grossly normal Data : 07/22/20 03:33 07/22/20 03:33 A&P Assessment and plan (1) Atrial fibrillation with rapid ventricular response: Status: Acute (2) Acute diastolic heart failure: Status: Acute (3) Left lower lobe pneumonia: Left lower lobe pneumonia, on Levaquin Status: Acute Qualifiers: Pneumonia type: due to unspecified organism Qualified Code(s): J18.9 - Pneumonia, unspecified organism (4) Abnormal nuclear stress test: Status: Acute (5) Peripheral arterial disease: Status: Acute Additional A&P Information Atrial fibrillation: new onset A fib with RVR, appears to be ongoing for a week per history Continues to have A. fib with digoxin 125 mcg daily, Metroprolol 50 mg twice daily, added flecainide 150 mg 3 times daily We will keep n.p.o., plan on transesophageal echocardiogram and cardioversion later on this evening Has evidence of CHF, continue Lasix 40 mg p.o. daily Monitor I/O closely , daily weight check echocardiogram : EF of 55%, no regional wall motion abnormalities, moderate pulmonary hypertension, severe mitral valve regurg, severe tricuspid valve regurg, moderate pulmonary valve regurg Positive cardiac stress test Cardiac stress angiogram no significant obstructive CAD A1c within normal limits, TSH within normal limits, mag within normal limits Dimitris vas 2, on Xarelto Currently on ASA 81 mg qd COPD (chronic obstructive pulmonary disease): Chronic smoker with chronic cough at least 15 years, CXR with findings of COPD COPD exacerbation may be the trigger for A fib suppelemtal 02 to keep saturation >90% duonebs q6h as scheduled nebulization prednisone 40mg po qd PFTs as outpatient Hypoxia: likely as a combination of COPD and CHF from A fib with RVR 02 as above Lasix 40 mg daily started duonebs covid ag negative Hilar adenopathy: Will require outpatient follow-up with pulmonary Left lower lobe pneumonia: Positive cardiac stress test: Myocardial perfusion imaging is abnormal with small area of reversible perfusion defect noted in anterior wall. This likely represents ischemia. LV systolic function is mildly reduced with EF of 44%. -Cardiac cath did not show any obstructive CAD Plan for today, try flecainide, n.p.o., plan on stress esophageal echocardiogram and cardioversion later on this evening Attestations Medical Necessity Statement*: Patient requires hospitalization for A. fib with RVR, requiring cardioversion and transesophageal echocardiogram, pneumonia, COPD Coding Level of Care Code Acute Founder Ceo & President for [facility] Diagnoses Atrial fibrillation with rapid ventricular response I48.91 Acute diastolic heart failure I50.31 Left lower lobe pneumonia J18.9 Pneumonia type: due to unspecified organism Abnormal nuclear stress test R94.39 Peripheral arterial disease I73.9
[2020-07-23] MEDS: sodium chloride 0.9% 1,000 ML 100 ML IV (16:22)
--- NOTE | 2020-07-23 16:30 | USCV_ITS ---
Keith Shi Age: 54 Gender: M : 1965 Exam Date: 07/23/2020 16:31 Ordering Phys: Leann Aranda MD ([email or web address]) Technologist: Manju Middleton Exam Location: [facility] [place] Indication: AFIB BP: / HR: Rhythm: Sinus Technical Quality: MEASUREMENTS (Male / Female) Normal Values Medications IV propofol by the anesthesia none appears to be of normal size and ejection fraction. Complications None. Proc. Components The procedure was performed in the patient's room in a fasting state after obtaining an informed consent. FINDINGS Left Ventricle Appears to be of normal size and ejection fraction. No gross wall motion normalities. Right Ventricle Normal right ventricular size and systolic function. Right Atrium Mildly dilated. Left Atrium Moderately dilated . LA Appendage Normal size with a slightly diminished contractility IA Septum Intact with no evidence of ASD or patent foramen ovale Mitral Valve The anterior mitral leaflet appears to be thickened with prolapse of the A2 scallop. Severe mitral irritation . Aortic Valve No gross morphologic abnormalities noted . Tricuspid Valve Appears to be thickened with moderate tricuspid regurgitation Pulmonic Valve No gross abnormalities noted Pericardium Pericardial effusion . Aorta Aortic root appears to be of normal size with no unstable lesions CONCLUSIONS Severe mitral regurgitation with prolapse of the A2 scallop Moderate tricuspid regurgitation Moderately dilated left atrium with a mildly dilated right atrium No intracardiac masses. Intact interatrial septum Normal aortic root Normal LV size and ejection fraction. Please see separate report for the quantification of mitral regurgitation Dr Leann Aranda MD FAC (Electronically Signed) Final Date: 24 July 2020 14:53 S
--- NOTE | 2020-07-23 17:13 | ECG_ITS ---
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 Measurements Intervals [place] Rate: 102 P: 46 [place]: 143 QRS: 56 QRSD: 102 T: 35 QT: 319 QTc: 417 Interpretive Statements SINUS TACHYCARDIA INDETERMINATE AXIS Compared to ECG 07/19/2020 02:18:33 Indeterminate axis now present Atrial fibrillation no longer present Electronically Signed On 07-23-2020 17:36:00 WATER FILTERER HELPER by Brown Tolbert M.D. [id number]
--- NOTE | 2020-07-23 17:19 | PC.NURSE ---
CHIQUIS WITH CARDIOVERSION PATIENT NAME AND DATE OF VERIFIED WITH THE PATIENT. TIME OUT PERFORMED AT 1653. PATIENT AND PROCEDURE VERIFIED WITH TEAM. MEDICATIONS ADMINISTERED PER CHRIS YOUNG, PLEASE SEE ANESTHESIA'S DOCUMENTATION. CHIQUIS PERFORMED, BUBBLES ADMINISTERED PER MEGAN REED. CARDIOVERSION PERFORMED AT 1708. PATIENT NOW IN SINUS RHYTHM.
--- NOTE | 2020-07-23 17:27 | ANE.PACU2 ---
Inpatient post-anesthesia follow up: Airway intact: Yes Vital signs: Temperature 97.8 F Pulse Rate [Monito r] 140 Pulse Rate 76 Respiratory Rate 17 Blood Pressure [Le ft Arm] 120/89 Blood Pressure 94/79 Pulse Oximetry 97 Oxygen Delivery Me thod Room Air Oxygen Flow Rate 2 Fraction of Inspir ed Oxygen Hydration adequate: Yes Nausea and vomiting: No Pain level: 2 Mental status: Baseline
--- NOTE | 2020-07-23 17:41 | PC.NURSE ---
ORDERED PER DR. SAMS TO HOLD THIS EVENING'S DOSE OF METOPROLOL IF SBP IS BELOW 110.
--- NOTE | 2020-07-23 19:29 | PC.NURSE ---
Received report from Magdalena Harrison RN. Patient up to chair. Patient is s/p cardioversion. Patient currently in NSR with rate in the 80s. Patient stated, I feel great. . Discussed patient evening medications and he verbalized complete understanding. Denies further discomforts of needs. No distress observed.
[2020-07-23] MEDS: rivaroxaban 10 mg Tablet 20 MG PO (20:22)
[2020-07-24] VITALS (9 sets, daily range): BP systolic 97–120; BP diastolic 70–90; PULSE 78–93; RESP 15–27; TEMP 36.4–36.8; O2SAT 92–96
--- NOTE | 2020-07-24 | USCV_ITS ---
Keith Shi Age: 54 Gender: M : 1965 Exam Date: 07/24/2020 09:21 Ordering Phys: Leann Aranda MD ([email or web address]) Technologist: Dawit Aguirre Exam Location: [facility] [place] Indication: MR quantification BP: 120 / 90 HR: 52 Rhythm: Sinus Technical Quality: Good MEASUREMENTS (Male / Female) Normal Values 2D ECHO LVOT Diameter 2.0 cm DOPPLER LVOT Peak Velocity 89.0 cm/s MV Peak Velocity 108.0 cm/s PV Peak Velocity 84.0 cm/s FINDINGS Left Ventricle Right Ventricle Right Atrium Left Atrium Mitral Valve Stroke-volume at the level of the mitral valve was 156.02 mL. Stroke-volume at the level of the LV outflow tract was 62.4 mL. The regurgitant volume was 93.6 mL. The regurgitant fraction was 59.9. The VTI or the LV outflow tract was 19.9 and that at the mitral valve, was 22.1. Regurgitant volume was 93.6 mL The ERO area was calculated to be 0.43 cm squared. Aortic Valve Tricuspid Valve Pulmonic Valve Pericardium Aorta CONCLUSIONS The high regurgitant volume of 93.6 mL and ERO area of 0.43 cm squared are consistent with a severe mitral regurgitation Dr Leann Aranda MD FACC (Electronically Signed) Final Date: 24 July 2020 19:01 S
[2020-07-24 04:35] LABS: Basophils % 0.1 %; Eosinophils % 0.1 %; Hematocrit 50.1 % (42.0-52.0); Hemoglobin 16.8 g/dL (11.7-16.6); Lymphocytes # 1.7 10^3/uL (0.8-4.8); Lymphocytes % 16.2 %; Mean Corpuscular HGB Conc 33.5 g/dL (30.0-36.0); Mean Corpuscular Hemoglobin 32.9 pg (28.0-34.0); Mean Platelet Volume 10.4 fL (7.4-10.4); Monocytes % 9.6 %; Neutrophils # 7.65 10^3/uL (1.8-7.7); Neutrophils % 73.5 %; Nucleated Red Blood Cells % 0 %; Platelet Count 240 10^3/cmm (130-400); Red Blood Count 5.11 10^6/uL (4.1-5.3); Red Cell Distribution Width 13.4 % (12.1-15.1); White Blood Count 10.4 10^3/uL (4.0-10.0)
[2020-07-24 04:58] LABS: Alanine Aminotransferase 63 U/L (0-41); Albumin Level 3.8 g/dL (3.5-5.2); Alkaline Phosphatase 75 IU/L (40-130); Anion Gap 14.2 (5-19); Aspartate Amino Transferase 28 U/L (0-40); Blood Urea Nitrogen 29 mg/dL (6-20); Calcium 9.4 mg/dL (8.5-10.5); Carbon Dioxide 25 mmol/L (22-29); Chloride 101 mmol/L (98-107); Creatinine Clr Calc Pharmacy 76.0384; Globulin 2.6 g/dL (1.3-4.6); Glomerular Filtration Rate 63.3 mL/min (90-130); Glucose 107 mg/dL (65-115); Magnesium 2.1 mg/dL (1.7-2.3); Osmolality Calculated 288 mOsm/kg (285-295); Phosphorus 4.1 mg/dL (2.5-4.5); Potassium 4.2 mmol/L (3.5-5.1); Sodium 136 mmol/L (136-145); Total Protein 6.4 g/dL (6.6-8.7)
[2020-07-24] MEDS: levoFLOXacin 750 mg Tablet PO (05:05)
[2020-07-24] MEDS: FUROsemide 40 mg Tablet PO (08:36)
[2020-07-24] MEDS: atorvastatin 40 mg Tablet PO (08:36)
[2020-07-24] MEDS: predniSONE 20 mg Tablet 40 MG PO (08:36)
[2020-07-24] MEDS: potassium chloride ER 20 mEq Tablet 40 MEQ PO (08:36)
[2020-07-24] MEDS: aspirin 81 mg EC Tablet PO (08:36)
[2020-07-24] MEDS: guaiFENesin 600 mg Tablet PO (08:36)
[2020-07-24] MEDS: ipratropium-albuterol 3 mL Neb INHALATION (08:51)
[2020-07-24] MEDS: metoprolol tartrate 25 mg Tablet PO (09:27)
[2020-07-24] MEDS: propafenone 150 mg Tablet PO (09:27)
--- NOTE | 2020-07-24 09:30 | PC.NURSE ---
Clarified orders for cardiac medications scheduled to be administered this am instructions from Dr Aranda to stop digoxin and given the metoprolol 25 mg BID and the rythmalol as scheduled
--- NOTE | 2020-07-24 10:05 | ECG_ITS ---
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 Measurements Intervals [place] Rate: 75 P: 48 NM: 133 QRS: 30 QRSD: 101 T: 15 QT: 368 QTc: 413 Interpretive Statements SINUS RHYTHM Compared to ECG 07/23/2020 17:31:57 Sinus tachycardia no longer present Indeterminate axis no longer present Electronically Signed On 07-24-2020 19:14:47 COMMERCIAL ENERGY AUDITOR by Leann Aranda M.D. [id number]
--- NOTE | 2020-07-24 10:22 | P.PN_ITS ---
Subjective Subjective: Interval history: The patient is feeling okay. He has not had any chest pain or palpitations. He continues to remain in sinus rhythm. He has been tolerating the medication so far well. Medications: Reviewed: Yes Medication Review Details: Current Medications Acetaminophen (Acetaminophen 325 Mg Tablet) 650 mg PO Q6H PRN PRN Reason: Mild/Mod Pain Or Temp >/= 101 Al Hydrox/Mg Hydrox/Simethicone (Dtme-Nyh-Iggchbkdt-James 30 Ml Udc) 30 ml PO Q15M PRN PRN Reason: INDIGESTION Albuterol/Ipratropium (Ipratropium-Albuterol 3 Ml Neb) 3 ml INHALATION Q6H.RESPIRATORY NICK Last Admin: 07/24/20 08:51 Dose: 3 ml Documented by: Aspirin (Aspirin 81 Mg Ec Tablet) 81 mg PO DAILY [facility] Last Admin: 07/24/20 08:36 Dose: 81 mg Documented by: Atorvastatin Calcium (Atorvastatin 40 Mg Tablet) 40 mg PO DAILY [facility] Last Admin: 07/24/20 08:36 Dose: 40 mg Documented by: Clonazepam (Clonazepam 0.5 Mg Tablet) 0.5 mg PO TID PRN PRN Reason: ANXIETY Last Admin: 07/22/20 20:33 Dose: 0.5 mg Documented by: Furosemide (Furosemide 40 Mg Tablet) 40 mg PO DAILY@0800 [facility] Last Admin: 07/24/20 08:36 Dose: 40 mg Documented by: Guaifenesin (Guaifenesin 600 Mg Tablet) 600 mg PO BID [facility] Last Admin: 07/24/20 08:36 Dose: 600 mg Documented by: Sodium Chloride (Sodium Chloride 0.9%) 1,000 mls @ 100 mls/hr IV .Q10H [facility] Last Infusion: 07/24/20 05:04 Dose: Infused Documented by: Levofloxacin (Levofloxacin 750 Mg Tablet) 750 mg PO DAILY@0600 [facility]; Protocol Last Admin: 07/24/20 05:05 Dose: 750 mg Documented by: Magnesium Hydroxide (Magnesium Hydroxide 30 Ml Udc) 30 ml PO DAILY PRN PRN Reason: CONSTIPATION Metoprolol Tartrate (Metoprolol Tartrate 1 Mg/1 Ml Sdv 5 Ml) 5 mg IV Q4H PRN PRN Reason: HEART RATE-HIGH Metoprolol Tartrate (Metoprolol Tartrate 25 Mg Tablet) 25 mg PO BID [facility] Last Admin: 07/24/20 09:27 Dose: 25 mg Documented by: Naloxone HCl (Naloxone 0.4 Mg/Ml Sdv) 0.1 mg IVP Q2M PRN PRN Reason: RESPIRATORY RATE < 8/MIN Nitroglycerin (Nitroglycerin 0.4 Mg Sublingual Tablet) 0.4 mg SUBLINGUAL Q5M PRN PRN Reason: CHEST PAIN Ondansetron HCl (Ondansetron 2 Mg/Ml Sdv 2 Ml) 4 mg IVP Q8H PRN PRN Reason: vomiting, or N/V if npo Ondansetron HCl (Ondansetron 2 Mg/Ml Sdv 2 Ml) 4 mg IVP Q2M PRN PRN Reason: NAUSEA Potassium Chloride (Potassium Chloride Er 20 Meq Tablet) 40 meq PO DAILY [facility] Last Admin: 07/24/20 08:36 Dose: 40 meq Documented by: Prednisone (Prednisone 20 Mg Tablet) 40 mg PO DAILY [facility] Last Admin: 07/24/20 08:36 Dose: 40 mg Documented by: Propafenone HCl (Propafenone 150 Mg Tablet) 150 mg PO TID [facility] Last Admin: 07/24/20 09:27 Dose: 150 mg Documented by: Rivaroxaban (Rivaroxaban 10 Mg Tablet) 20 mg PO Q24H [facility] Last Admin: 07/23/20 20:22 Dose: 20 mg Documented by: Vitals/I&O/Wt Last Vital Signs Temp 98.2 F 07/24/20 07:47 Pulse 93 07/24/20 09:27 Resp 18 07/24/20 08:53 BP 120/90 07/24/20 07:47 Pulse Ox 96 07/24/20 08:53 07/23/20 07/24/20 07/24/20 22:59 06:59 14:59 Intake Total 1240 / 1720 480 / 480 Output Total 300 / 1820 300 / 2120 Balance -300 / -1340 940 / -400 480 / 480 Weight last 48 hrs Weight 179 lb 1 oz Weight 182 lb 14.4 oz Weight 182 lb 6.4 oz Physical Exam Narrative: EXAM NARRATIVE: GENERAL: The patient is alert and oriented times three. Not in any acute distress. HEENT: No significant pallor, icterus or lymphadenopathy. Pupils are symmetrical NECK: Trachea appears to be central. No masses noted. No JVD or thyromegaly appreciated. No carotid bruit. RESPIRATORY: Chest is symmetrical. No intercostals muscle retraction or any accessory muscle activation. There is no chest wall tenderness. Breath sounds are heard bilaterally. No rales or rhonchi heard. No evidence of any co nsolidation. BREASTS: Deferred. HEART: The PMI is in the 5th left intercostals space just inside the midclavicular line. No palpable precordial events. The first heart sound is variable second arteries normal. No S3. Systolic murmur of grade 3/6 in the mitral area and in the tricuspid area. No diastolic murmurs. No pericardial rub ABDOMEN: No vessel pulsations or distention. No tenderness. No organomegaly appreciated. No abdominal bruit. Bowel sounds are normally heard. : Deferred. RECTAL: Deferred. LYMPHATIC: No lymphadenopathy noted in the neck or groin. EXTREMITIES: No edema or cyanosis peripheral pulses are very weak bilaterally more so of the dorsalis pedis pulses. No evidence of cyanosis. The radial arterial puncture site has no hematoma or bleeding MUSCULOSKELETAL: No acute joint deformities or swelling SKIN: There are no significant scars or skin rash noted. NEUROPSYCHIATRIC: No focal motor deficits. Const: COMMON NORMALS: alert Neuro: SENSORIUM/ORIENTATION: Yes alert Data : 07/24/20 03:25 07/24/20 03:25 Other Labs: Laboratory Last Values WBC 10.4 10^3/uL (4.0-10.0) H 07/24/20 03:25 RBC 5.11 10^6/uL (4.1-5.3) 07/24/20 03:25 Hgb 16.8 g/dL (11.7-16.6) H 07/24/20 03:25 Hct 50.1 % (42.0-52.0) 07/24/20 03:25 MCV 98.0 fL (80-94) H 07/24/20 03:25 MCH 32.9 pg (28.0-34.0) 07/24/20 03:25 MCHC 33.5 g/dL (30.0-36.0) 07/24/20 03:25 RDW 13.4 % (12.1-15.1) 07/24/20 03:25 Plt Count 240 10^3/cmm (130-400) 07/24/20 03:25 MPV 10.4 fL (7.4-10.4) 07/24/20 03:25 Neut % (Auto) 73.5 % 07/24/20 03:25 Lymph % (Auto) 16.2 % 07/24/20 03:25 Blount % (Auto) 9.6 % 07/24/20 03:25 Eos % (Auto) 0.1 % 07/24/20 03:25 Baso % (Auto) 0.1 % 07/24/20 03:25 Neut # (Auto) 7.65 10^3/uL (1.8-7.7) 07/24/20 03:25 Lymph # (Auto) 1.7 10^3/uL (0.8-4.8) 07/24/20 03:25 Blount # (Auto) 1.0 10^3/uL (0.2-0.9) H 07/24/20 03:25 Eos # (Auto) 0.0 10^3/uL (0.0-0.8) 07/24/20 03:25 Baso # (Auto) 0.0 10^3/uL (0.0-0.1) 07/24/20 03:25 Nucleated RBC % (auto) 0 % 07/24/20 03:25 Nucleated RBCs # 0.0 /100WBC 07/24/20 03:25 D-Dimer 1.18 ug/mIFEU (0-0.59) H 07/19/20 00:01 Sodium 136 mmol/L (136-145) 07/24/20 03:25 Potassium 4.2 mmol/L (3.5-5.1) 07/24/20 03:25 Chloride 101 mmol/L (98-107) 07/24/20 03:25 Carbon Dioxide 25 mmol/L (22-29) 07/24/20 03:25 Anion Gap 14.2 (5-19) 07/24/20 03:25 BUN 29 mg/dL (6-20) H 07/24/20 03:25 Creatinine 1.2 mg/dL (0.7-1.2) 07/24/20 03:25 GFR Calculation 63.3 mL/min (90-130) L 07/24/20 03:25 Glucose 107 mg/dL (65-115) 07/24/20 03:25 Estimat Average Glucose 114 07/19/20 06:00 Hemoglobin A1c 5.6 % (4.0-6.0) 07/19/20 06:00 Calculated Osmolality 288 mOsm/kg (285-295) 07/24/20 03:25 Calcium 9.4 mg/dL (8.5-10.5) 07/24/20 03:25 Phosphorus 4.1 mg/dL (2.5-4.5) 07/24/20 03:25 Magnesium 2.1 mg/dL (1.7-2.3) 07/24/20 03:25 Total Bilirubin 1.0 mg/dL (0.15-1.2) 07/24/20 03:25 AST 28 U/L (0-40) 07/24/20 03:25 ALT 63 U/L (0-41) H 07/24/20 03:25 Alkaline Phosphatase 75 IU/L (40-130) 07/24/20 03:25 Troponin T Baseline 12 ng/L (0-15) 07/19/20 00:01 Troponin T 120 Minute 11.01 ng/L (0-15) 07/19/20 02:18 Delta Troponin T -0.99 ABS# (0-10) L 07/19/20 02:18 Troponin T Hi Sens 6Hr 11.32 ng/L (0-15) 07/19/20 06:00 Troponin T Hi Sens 6Hr Delta -0.68 ng/L (0-12) L 07/19/20 06:00 C-Reactive Protein 1.8 mg/L (0.0-4.9) 07/22/20 03:33 NT-Pro-B Natriuret Pep 1387 pg/mL (0-125) H 07/19/20 00:01 Total Protein 6.4 g/dL (6.6-8.7) L 07/24/20 03:25 Albumin 3.8 g/dL (3.5-5.2) 07/24/20 03:25 Globulin 2.6 g/dL (1.3-4.6) 07/24/20 03:25 Triglycerides 74 mg/dL (0-150) 07/19/20 06:00 Cholesterol 146 mg/dL (0-200) 07/19/20 06:00 LDL Cholesterol, Calc 89 mg/dL (50-129) 07/19/20 06:00 HDL Cholesterol 42 mg/dL (60-100) L 07/19/20 06:00 LDL/HDL Ratio 2.12 RATIO (0.00-3.22) 07/19/20 06:00 Cholesterol/HDL Ratio 3.48 mg/dL (1.0-5.00) 07/19/20 06:00 Procalcitonin 0.04 ng/mL (0-0.5) 07/22/20 03:33 TSH 2.09 uIU/mL (0.27-4.20) 07/19/20 06:00 SARS-CoV-2 Ag (Rapid) Negative (Negative) 07/19/20 02:20 Micro: Microbiology 07/19/20 03:37 Blood Culture - Final Blood NO GROWTH AFTER 5 DAYS 07/19/20 03:00 Blood Culture - Final Blood NO GROWTH AFTER 5 DAYS A&P Assessment and plan (1) Atrial fibrillation with rapid ventricular response: Currently the patient is in the sinus rhythm. He may continue on the metoprolol and the propafenone. I will discontinue the digoxin and the Cardizem. Status: Acute (2) Acute diastolic heart failure: Most likely the heart failure is secondary to the arrhythmia, left ventricular diastolic dysfunction and valvular heart disease. He may be treated with diuretics on a as needed basis. I may cut back on the Lasix to 20 mg p.o. daily with potassium 10 mg p.o. daily Status: Acute (3) Left lower lobe pneumonia: Management and follow-up as per the primary Status: Acute Qualifiers: Pneumonia type: due to unspecified organism Qualified Code(s): J18.9 - Pneumonia, unspecified organism (4) Peripheral arterial disease: Patient may have some vasospastic component with no significant arterial obstruction. 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 May continue on the current medications Status: Acute (6) 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: Patient had appears to have severe mitral regurgitation by transesophageal echocardiogram. We will do some hemodynamic calculation today. Status: Acute Additional A&P Information Other problems are #1 smoking abuse -strongly advised to quit smoking #2 COPD exacerbation-optimize the bronchodilator treatment as per the primary #3. Elevated white cell count, possibly from the steroids If the patient continues to remain stable, may be discharged home today. I may send his echocardiogram results to Dr. Batista at the [facility] to consider percutaneous intervention of the valve. Patient need to be seen in the office in 1 week by the nurse practitioner. He will have a repeat EKG at that time. I may see him in the office in 2 weeks. 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
--- NOTE | 2020-07-24 14:56 | PC.NURSE ---
Patient discharged at this time patient discharge home self care. Discharge instructions provided and explained to patient. all appointments and education on medications and side effects explained to patient verbalization noted of understanding of all instructions given patient accompanied to private vehicle by staff all belongings and discharge instructions in hand
== END 2020-07-24 14:50 | disposition home or self-care (01) | DRG 286 ==
LOC: ER 07-19 03:01 → CSU 07-19 03:51
PROVIDERS: Internal Medicine Cardiovascular Disease; Admitting Provider Student in an Organized Health Care Education/Training Program; Emergency Provider Emergency Medicine; PCP Family Medicine; Visit Provider Family Medicine
PROC: 4A023N7 Measurement of Cardiac Sampling and Pressure, Left Heart, Percutaneous Approach (ICD-10-PCS; principal; 2020-07-21 17:00)
PROC: 5A2204Z Restoration of Cardiac Rhythm, Single (ICD-10-PCS; principal; 2020-07-23 16:30)
PROC: B24BYZZ Ultrasonography of Heart with Aorta using Other Contrast (ICD-10-PCS; CPT 93312; 2020-07-23 16:30)
DX: I48.91 Unspecified atrial fibrillation (principal); I50.31 Acute diastolic (congestive) heart failure; J96.91 Respiratory failure, unspecified with hypoxia; J44.1 Chronic obstructive pulmonary disease with (acute) exacerbation; J44.0 Chronic obstructive pulmonary disease with (acute) lower respiratory infection; I25.118 Atherosclerotic heart disease of native coronary artery with other forms of angina pectoris; F17.210 Nicotine dependence, cigarettes, uncomplicated; R59.0 Localized enlarged lymph nodes; R94.39 Abnormal result of other cardiovascular function study; I73.9 Peripheral vascular disease, unspecified; I08.1 Rheumatic disorders of both mitral and tricuspid valves
CPT/HCPCS: 12345; 36415; 71045; 71275; 78452; 80053; 80061; 83036; 83735; 83880; 84100; 84145; 84443; 84484; 85025; 85378; 86140; 87040; 87426; 93005; 93017; 93306; 93308; 93312; 93320; 93325; 93452; 93925; 94640; 94664; 96372; 96375; 99283; A9500; C1769; C1887; C1894; J0456; J0696; J1160; J1200; J1644; J1650; J1940; J2250; J2370; J2704; J2785; J2920; J3010; J3490; J7030; J7050; J7512; Q0163; Q9967

== ENCOUNTER → 2021-02-09 15:46 | Outpatient (BNVA) | payer BC, SELFPAY | PROVIDERS: PCP Family Medicine; Visit Provider Internal Medicine Cardiovascular Disease | DX: Z09 Encounter for follow-up examination after completed treatment for conditions other than malignant neoplasm (principal); I08.1 Rheumatic disorders of both mitral and tricuspid valves; I25.118 Atherosclerotic heart disease of native coronary artery with other forms of angina pectoris; I50.31 Acute diastolic (congestive) heart failure; I48.91 Unspecified atrial fibrillation; J44.9 Chronic obstructive pulmonary disease, unspecified; Z79.899 Other long term (current) drug therapy; R94.39 Abnormal result of other cardiovascular function study; R03.0 Elevated blood-pressure reading, without diagnosis of hypertension; Z79.01 Long term (current) use of anticoagulants | CPT/HCPCS: 85610 ==

== ENCOUNTER → 2021-03-12 08:48 | Outpatient (BNVA) | payer BC, SELFPAY | PROVIDERS: PCP Family Medicine; Visit Provider Internal Medicine Cardiovascular Disease | DX: I48.19 Other persistent atrial fibrillation (principal); Z79.01 Long term (current) use of anticoagulants | CPT/HCPCS: 85610 ==

== ENCOUNTER 2021-04-01 12:11 | Outpatient (CLI) | payer BC, SELFPAY ==
[2021-04-01 12:15] VITALS: BP 107/65; PULSE 84; RESP 17; TEMP 36.7; O2SAT 94; BMI 24.3
[2021-04-01 12:45] VITALS: BP 93/62; PULSE 62; RESP 16; TEMP 36.8; O2SAT 96
[2021-04-01 13:48] VITALS: BP 105/70; PULSE 80; RESP 15; TEMP 36.8; O2SAT 96
== END 2021-04-01 12:12 | disposition home or self-care (01) ==
LOC: OPS 12:15
PROVIDERS: PCP Family Medicine; Visit Provider Nurse Practitioner Family
DX: U07.1 COVID-19 (principal)
CPT/HCPCS: 96365

== ENCOUNTER → 2021-07-20 08:59 | Outpatient (BNVA) | payer BC, SELFPAY | PROVIDERS: PCP Family Medicine; Visit Provider Internal Medicine Cardiovascular Disease | DX: I48.19 Other persistent atrial fibrillation (principal); I25.118 Atherosclerotic heart disease of native coronary artery with other forms of angina pectoris; I48.91 Unspecified atrial fibrillation; Z79.01 Long term (current) use of anticoagulants; Z79.899 Other long term (current) drug therapy | CPT/HCPCS: 80048; 85025; 85610 ==

== ENCOUNTER 2021-09-10 08:22 | Emergency (ER) | payer BC, SELFPAY ==
[2021-09-10 08:26] VITALS: BP 101/73; PULSE 83; RESP 14; TEMP 36.7; O2SAT 93; BMI 27.2
--- NOTE | 2021-09-10 08:26 | XR_ITS ---
WS: [id number] RIGHT KNEE: 3 VIEW(S) TECHNIQUE: AP, oblique(s) and lateral. HISTORY: injury/pain COMPARISON: None available. Acute nondisplaced fracture extending through the lateral tibial plateau. There is an interruption of the cortex along the articular surface of the lateral tibial plateau. Fracture extends into the meta physis. Fracture also extends obliquely through the fibular head to the fibular metaphysis. No joint space narrowing or osteophytes. Small suprapatellar effusion. Mild soft tissue edema surrounding the knee. XR/XR knee RT 3V* [id number] IMPRESSION: 1. Nondisplaced fracture lateral tibial plateau with extension to the metaphys is. 2. Oblique, nondisplaced fracture fibular head into the metaphysis.
--- NOTE | 2021-09-10 08:32 | W.ED.LOWEXIN ---
HPI - Extremity Injury (Lower) General: Chief Complaint: Extremity Injury, Lower Stated Complaint: right knee injury Time Seen by Provider: 09/10/21 08:26 Source: patient and family () Mode of arrival: wheelchair Limitations: no limitations History of Present Illness: HPI Narrative: Patient is a 55-year-old male presents to ED today along with his for evaluation of a right knee injury. Patient tells me yesterday evening he had a gun cabinet fall onto his right knee. He states he sustained a small laceration/abrasion to the lateral aspect of the knee. He has noticed significant swelling. Patient is anticoagulated on Eliquis. Patient states he is not able to bear weight on the extremity secondary to pain. He thinks it somehow got twisted when the gun cabinet fell onto it. He has no other injuries or complaints at this time. He denies numbness, tingling, loss of sensation to the extremity. He has not noticed any color or temperature changes. Tetanus CHRISTIAN. complaint: knee injury Onset (ago): hour(s) (yesterday evening) Injury: Right: knee Place: home Relieving factors: immobilization Exacerbating factors: weight bearing, movement and palpation Context: direct blow Associated symptoms: Reports inability to bear weight Other symptoms: none Review of Systems Card: Denies: chest pain Resp: Denies: dyspnea Musc: Reports: extremity swelling (R leg), joint pain (R knee), joint swelling (R knee) and limited range of motion; Denies: neck pain, back pain, joint redness or joint warmth Skin/Breast: Reports: other (small laceration/avulsion R knee) Neuro: Reports: difficulty walking (secpmdary to pain in knee); Denies: numbness in extremities, weakness in extremities or sensory changes [facility] ED PFSH: Medical History 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 Atrial fibrillation with rapid ventricular response 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 High risk medication use Family History Father Arrhythmia, atrial CAD (coronary artery disease) Cancer Lung disease Grandfather Arrhythmia, atrial Cancer Lung disease Grandmother Arrhythmia, atrial Diabetes Stroke Family/Other Cancer Denies family history of Clotting disorder Dementia Chronic kidney disease (CKD) Suicide Anesthesia complication Bleeding disorder Social History Quit status (tobacco): has quit using tobacco Year quit tobacco: 2020 - 2PPD x 30 Years Second hand smoke exposure: No Smoking risk assessment/counseling performed?: No Alcohol intake: current Alcohol intake frequency: 0-2 Drinks per Day Alcohol type: other Lives independently: Yes Household members: spouse Marital status: Current occupational status: employed 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, 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) History of recent travel: No Current gender identity: Male Physical Exam Const: COMMON NORMALS: no acute distress, average body habitus, patient oriented x3, no limitations, healthy appearing, alert and well nourished GENERAL APPEARANCE: cooperative Extremity: RIGHT LOWER EXTREMITY: Yes knee joint OTHER: pt has a moderate amount of swelling surrounding R knee; he has a small 1.25cm skin avulsion to lateral aspect that is not repairable-no bleeding or infection at this time; ROM is limited secondary to pain/swelling; swelling seems to extend distally into his calf; no obvious calf tenderness; no redness or palpable cords; extremity NV intact; most of pain in knee seems to be lateral/posterior Neuro: COMMON NORMALS: patient oriented x3, moves all extremities, no focal motor deficits and no sensory deficits noted SENSORIUM/ORIENTATION: Yes alert Skin: NARRATIVE SKIN EXAM: see extremity assessment for pertinent skin findings Course Consultations: Consultation #1: Dr. Gibbs-agrees with plan for knee immobilizer, NWB, ice/elevation, follow up in office Vital Signs: Vital signs: Vital Signs Temperature 98.1 F 09/10/21 08:26 Pulse Rate 81 09/10/21 09:28 Respiratory Rate 16 09/10/21 09:28 Blood Pressure 110/76 09/10/21 09:28 Pulse Oximetry 96 09/10/21 09:28 MDM - Extremity Injury (Lower) Imaging Data^: XR R knee: Radiologist's impression: [facility] [address] [place] [address] XRay Report Signed Patient: Keith Shi Unit #: [id number] : 1965 Age/Sex: 55 / M ADM Date: 09/10/21 Loc: ER Room/Bed: Attending Dr: Ordering Provider/Ordering MD: Donita Parish Date of Service: 09/10/21 Procedure(s): XR knee RT 3V* [id number] Accession Number(s): [id number] Report Number: [id number] WS: [id number] RIGHT KNEE: 3 VIEW(S) TECHNIQUE: AP, oblique(s) and lateral. HISTORY: injury/pain COMPARISON: None available. Acute nondisplaced fracture extending through the lateral tibial plateau. There is an interruption of the cortex along the articular surface of the lateral tibial plateau. Fracture extends into the metaphysis. Fracture also extends obliquely through the fibular head to the fibular metaphysis. No joint space narrowing or osteophytes. Small suprapatellar effusion. Mild soft tissue edema surrounding the knee. XR/XR knee RT 3V* [id number] IMPRESSION: 1. Nondisplaced fracture lateral tibial plateau with extension to the metaphysis. 2. Oblique, nondisplaced fracture fibular head into the metaphysis. Dictated By: Alanis Schultz DO Signed By: Alanis Schultz DO Signed Date/Time: 09/10/21848 DD/ 5 Discharge Plan Discharge Patient Disposition: Home Clinical Impression: Closed fracture of tibial plateau Qualifiers: Encounter type: initial encounter Laterality: right Qualified Code(s): S82.141A - Displaced bicondylar fracture of right tibia, initial encounter for closed fracture Closed fracture of proximal end of fibula Qualifiers: Encounter type: initial encounter Fracture morphology: unspecified fracture morphology Laterality: right Qualified Code(s): S82.831A - Other fracture of upper and lower end of right fibula, initial encounter for closed fracture Condition: Stable Prescriptions: New hydrocodone-acetaminophen 5-325 mg tablet 1 tab PO Q4H PRN (Reason: pain) Qty: 20 RF: 0 No Action furosemide 40 mg tablet 40 mg PO DAILY RF: 0 metoprolol tartrate 25 mg tablet 25 mg PO BID RF: 0 potassium chloride 20 mEq tablet extended release 20 meq PO DAILY RF: 0 Eliquis 5 mg tablet 5 mg PO BID Qty: 60 RF: 5 albuterol sulfate 90 mcg/actuation HFA aerosol inhaler 1 inh inhalation Q6H PRN (Reason: shortness of breath or wheezing) Qty: 18 RF: 0 Discharge Orders: Discharge ED (Routine); Ordered 09/10/21 Ordered By: Donita Parish Referrals: Suni Balderrama MD [Primary Care Provider] - Patient Instructions: Opioid Safety Activity Restrictions/Additional Instructions: [facility] is committed to fighting the nationwide opiate epidemic. We are providing ALL patients with information regarding opiate safety. If you received opiate pain medication during your stay or if you received a prescription for opiate pain medication-please review this handout. If not, you may disregard. Thank you. As we discussed case management should contact you shortly to set you up with your follow-up orthopedic appointment. Coding Level of Care Code ED Family Program Specialist for [place] Fwd Exam Expanded Problem Focused
[2021-09-10 09:28] VITALS: BP 110/76; PULSE 81; RESP 16; O2SAT 96
[2021-09-10 09:55] VITALS: BP 110/76; PULSE 81; RESP 16; O2SAT 96
--- NOTE | 2021-09-10 10:31 | DCPLANNER ---
Addendum entered by Rosetta Rodríguez 09/16/21 10:37: Patient had a follow up appointment scheduled with ortho - patient did attend appointment. Original Note: assistant farm operations manager had message to schedule a follow up appointment for patient with ortho. assistant farm operations manager emailed patients information to Nikky at the ortho clinic. Patients information will be printed and reviewed. Clinic will call patient with appointment information.
== END 2021-09-10 09:55 | disposition home or self-care (01) ==
PROVIDERS: Emergency Provider Physician Assistant; PCP Family Medicine
DX: S82.141A Displaced bicondylar fracture of right tibia, initial encounter for closed fracture (principal); S82.831A Other fracture of upper and lower end of right fibula, initial encounter for closed fracture; Z79.01 Long term (current) use of anticoagulants; I25.10 Atherosclerotic heart disease of native coronary artery without angina pectoris; Z87.891 Personal history of nicotine dependence; W20.8XXA Other cause of strike by thrown, projected or falling object, initial encounter
CPT/HCPCS: 29530; 73562; 99283

== ENCOUNTER → 2021-09-15 13:58 | Outpatient (BNVA) | payer BC, SELFPAY | PROVIDERS: PCP Family Medicine; Visit Provider Specialist | DX: S82.143A Displaced bicondylar fracture of unspecified tibia, initial encounter for closed fracture (principal); S82.839A Other fracture of upper and lower end of unspecified fibula, initial encounter for closed fracture; X58.XXXA Exposure to other specified factors, initial encounter | CPT/HCPCS: 73562 ==

== ENCOUNTER 2021-09-15 16:27 | Outpatient (CLI) | payer BC, SELFPAY | END 2021-09-15 16:28 | disposition home or self-care (01) | LOC: SPT 16:31 | PROVIDERS: PCP Family Medicine; Visit Provider Specialist | DX: Z46.89 Encounter for fitting and adjustment of other specified devices (principal); S82.121D Displaced fracture of lateral condyle of right tibia, subsequent encounter for closed fracture with routine healing; S82.831D Other fracture of upper and lower end of right fibula, subsequent encounter for closed fracture with routine healing; X58.XXXD Exposure to other specified factors, subsequent encounter | CPT/HCPCS: 97760; L1832 ==

== ENCOUNTER → 2021-10-06 15:33 | Outpatient (BNVA) | payer BC, SELFPAY | PROVIDERS: PCP Family Medicine; Visit Provider Specialist | DX: S82.143A Displaced bicondylar fracture of unspecified tibia, initial encounter for closed fracture (principal); S82.839A Other fracture of upper and lower end of unspecified fibula, initial encounter for closed fracture; S82.123A Displaced fracture of lateral condyle of unspecified tibia, initial encounter for closed fracture; X58.XXXA Exposure to other specified factors, initial encounter | CPT/HCPCS: 73562 ==

== ENCOUNTER 2022-09-22 10:16 | Outpatient (CLI) | payer BC, SELFPAY ==
--- NOTE | 2022-09-22 10:15 | USCV_ITS ---
Jose GuadalupeKeith Age: 56 Gender: M : 1965 Exam Date: 09/22/2022 10:49 Ordering Phys: Leann Aranda MD ([email or web address]) Technologist: Dawit Aguirre [place] [facility] [place]: mv repair BP: 124 / 72 HR: 72 Rhythm: Sinus Technical Quality: Adequate MEASUREMENTS (Male / Female) Normal Values 2D ECHO LV Diastolic Diameter PLAX 3.7 cm 4.2 - 5.9 / 3.9 - 5.3 cm LV Systolic Diameter PLAX 2.7 cm IVS Diastolic Thickness 1.2 cm 0.6 - 1.0 / 0.6 - 0.9 cm IVS Systolic Thickness 1.4 cm LVPW Diastolic Thickness 1.2 cm 0.6 - 1.0 / 0.6 - 0.9 cm LVPW Systolic Thickness 1.4 cm LV Ejection Fraction 2D Teich 55.5 % LV Ejection Fraction MOD 2C 66.5 % LV Ejection Fraction 2C AL 66.0 % LA Diameter 4.2 cm IVC Diameter 1.2 cm M-MODE Aortic Annulus Diameter 3.6 cm LA Ao Ratio MM 1.1 MV E Point Septal Separation 1.0 cm DOPPLER AV Peak Velocity 132.0 cm/s LVOT Peak Velocity 101.0 cm/s MV Area PHT 5.0 cm squared Mitral E to A Ratio 4.0 MV E' Velocity 141.0 cm/s TR Peak Velocity 165.7 cm/s TR Peak Gradient 11.0 mmHg TV Peak E Velocity 193.0 cm/s Right Atrial Pressure 3.0 mmHg Pulmonary Artery Systolic Pressu 14.0 mmHg RV Acceleration Time 0.1 s FINDINGS Left Ventricle Normal left ventricular size and systolic function, EF 67 %. No regional wall motion abnormalities. Mild left ventricular hypertrophy. Grade III/IV diastolic dysfunction (restrictive filling pattern), severely elevated filling pressures. Right Ventricle The right ventricle is normal in size and function. Right Atrium The right atrium is normal in size. Left Atrium The left atrium is normal in size. Mitral Valve Mild-moderate mitral valve regurgitation. Mild mitral annular calcification/intact mitral annular ring. Aortic Valve No gross abnormalities noted Tricuspid Valve Trace tricuspid valve regurgitation. Pulmonic Valve Pulmonic valve not well visualized. Pericardium Normal pericardium without effusion. Aorta Normal ascending aorta dimension. IVC Normal inferior vena cava. CONCLUSIONS Normal left ventricular size and systolic function, EF 67 %. No regional wall motion abnormalities. Mild left ventricular hypertrophy. Grade III/IV diastolic dysfunction (restrictive filling pattern), severely elevated filling pressures. Mild-moderate mitral valve regurgitation. Intact mitral annular ring. Trace tricuspid valve regurgitation. Estimated pulmonary artery peak systolic pressure of 14 mmHg, There is no pericardial effusion. There are no intracardiac masses. Compared to the study from 07/24/2020, there is significant improvement in the mitral regurgitation Dr Leann Aranda MD [facility] (Electronically Signed) Final Date: 26 September 2022 08:22 S
== END 2022-09-22 10:17 | disposition home or self-care (01) ==
LOC: RAD 10:22
PROVIDERS: PCP Family Medicine; Visit Provider Internal Medicine Cardiovascular Disease
DX: Z98.890 Other specified postprocedural states (principal); R06.09 Other forms of dyspnea; I08.1 Rheumatic disorders of both mitral and tricuspid valves
CPT/HCPCS: 93306

== ENCOUNTER → 2024-11-05 12:11 | Outpatient (BNVA) | payer BC, SELFPAY | PROVIDERS: PCP Family Medicine; Visit Provider Internal Medicine Cardiovascular Disease | DX: R07.9 Chest pain, unspecified (principal); I45.19 Other right bundle-branch block | CPT/HCPCS: 93005 ==

== ENCOUNTER 2025-08-04 15:14 | Outpatient (CLI) | payer BC, SELFPAY ==
--- NOTE | 2025-08-04 15:30 | CT_ITS ---
WS: [id number] CT HEAD NONCONTRAST HISTORY: CVA/ TIA TECHNIQUE: Contiguous axial imaging performed through the brain. Bone and soft tissue windows. Sagittal and coronal reformats reviewed. All CT scans at [facility] use at least one of these dose optimization techniques: automated exposure control; mA and/or kV adjustment per patient size (includes targeted exams where dose is matched to clinical indication); or iterative reconstruction. DLP: 1087.73 mGy.cm COMPARISON: 01/03/2015 No acute intracranial hemorrhage, midline shift or mass effect. Mild symmetric cerebral atrophy. Very minimal small vessel changes. No prior infarct. Mild cerebellar atrophy. Ventricles: Normal size with no hydrocephalus. Paranasal sinuses: As visualized are clear. Mastoid air cells: Well pneumatized. Calvarium and scalp: Skull is intact with no soft tissue edema or swelling. Scattered plaque in the intracranial carotid arteries. CT/CT head wo con* [id number] IMPRESSION: 1. No acute intracranial hemorrhage or edema. 2. Mild progression of cerebral atrophy. 3. Stable noncontrast CT head since 01/03/2015.
== END 2025-08-04 15:15 | disposition home or self-care (01) ==
LOC: RAD 15:15
PROVIDERS: PCP Nurse Practitioner Family; Visit Provider Internal Medicine Cardiovascular Disease
DX: G31.9 Degenerative disease of nervous system, unspecified (principal); R20.0 Anesthesia of skin
CPT/HCPCS: 70450